=== PATIENT | female | born 1975 | race Caucasian/White ===

== ENCOUNTER 2017-03-14 22:12 | Inpatient (IN) | payer OTHER ==
[2017-03-14 23:10] VITALS: BMI 17.2
--- NOTE | 2017-03-14 23:16 | HP ---
COWS - Scale Resting Pulse: 1= [place] 81-100 Sweatin=Flushed/Facial Moisture Restless Observation: 3= Extraneous Movement Pupil Size: 1= Pupils >than Normal Bone or Joint Aches: 4=Acute Joint/Muscle Pain Runny Nose/ Eye Tearin= Nasal Congestion GI Upset > 30mins: 2= Nausea/Diarrhea Tremor Observation: 2= Slight Tremor Visible Yawning Observation: 0= None Anxiety or Irritability: 2=Irritable/Anxious Goose Flesh Skin: 0=Smooth Skin COWS Score: 18 CIWA Score - CIWA Score Nausea/Vomitin-Mild Nausea/No Vomiting Muscle Tremors: 3 Anxiety: 4-Mod. Anxious/Guarded Agitation: 4-Moderately Restless Paroxysmal Sweats: 3 Orientation: 0-Oriented Tacttile Disturbances: 2-Mild Itch/Numbness/Burn Auditory Disturbances: 0-None Visual Disturbances: 0-None Headache: 2-Mild CIWA-Ar Total Score: 19 Admission ROS S - HPI Chief Complaint: C/O WITHDRAWAL SX'S . SEEKING DETOX TXMENT Allergies/Adverse Reactions: Allergies Allergy/AdvReac Type Severity Reaction Status Date / Time Fish Containing Products Allergy Severe Hives Verified 03/15/17 00:08 venom-honey bee Allergy Severe Swelling Verified 03/15/17 00:08 [bee venom (honey bee)] No Known Drug Allergies Allergy Verified 03/15/17 00:08 History of Present Illness: 41 Y.O. FEMALE WITH HX/O OPIOID, XANAX, ALCOHOL DEPENDENCE HERE FOR DETOX TXMENT. CLIENT IS KNOWN TO THIS PROGRAM. LAST HERE 2 YEARS AGO. DENIES ANY DETOX SINCE THEN. DENIES LEGALS . REPORTS LONGEST CLEAN TIME 10 YEARS. Exam Limitations: No Limitations - Ebola screening Have you traveled outside of the country in the last 21 days: No Have you had contact with anyone from an Ebola affected area: No Have you been sick,other than usual withdrawal symptoms: No - Review of Systems Constitutional: Chills, Loss of Appetite, Malaise, Night Sweats, Changes in sleep EENT: reports: Throat Pain (SORE) Respiratory: reports: No Symptoms reported Cardiac: reports: No Symptoms Reported GI: reports: Nausea, Poor Appetite, Poor Fluid Intake : reports: No Symptoms Reported Musculoskeletal: reports: Joint Pain Integumentary: reports: No Symptoms Reported Neuro: reports: No Symptoms reported Endocrine: reports: No Symptoms Reported Hematology: reports: No Symptoms Reported Psychiatric: reports: Anxious, Depressed Other Systems: Reviewed and Negative Patient History - Patient Medical History Hx Anemia: No Hx Asthma: Yes (ALBUTEROL INH) Hx Chronic Obstructive Pulmonary Disease (COPD): No Hx Cancer: No Hx Cardiac Disorders: No Hx Congestive Heart Failure: No Hx Hypertension: No Hx Hypercholesterolemia: No Hx Pacemaker: No HX Cerebrovascular Accident: No Hx Seizures: No Hx Dementia: No Hx Diabetes: No Hx Gastrointestinal Disorders: No Hx Liver Disease: No Hx Genitourinary Disorders: No Hx Sexually Transmitted Disorders: No Hx Renal Disease (ESRD): No Hx Thyroid Disease: No Hx Human Immunodeficiency Virus (HIV): No Hx Hepatitis C: No Hx Depression: Yes Hx Suicide Attempt: No Hx Bipolar Disorder: Yes Hx Schizophrenia: No Other Medical History: ANXIETY - Patient Surgical History Past Surgical History: No - PPD History Previous Implant?: Yes Documented Results: Negative w/o proof Implanted On Prior [facility] Admission?: Yes Date: 11/20/14 PPD to be Administered?: Yes - Reproductive History Patient is a Female of Child Bearing Age (11 -55 yrs old): Yes Last Menstrual Period: 11/11/14 LMP comment: 03/02/2017 [place] : [place] [facility] [place] Smoking Cessation Smoking history: Current every day smoker Have you smoked in the past 12 months: Yes Aproximately how many cigarettes per day: 10 Hx Chewing Tobacco Use: No Initiated information on smoking cessation: Yes 'Breaking Loose' booklet given: 03/14/17 - Substance & Tx. History Hx Alcohol Use: Yes Hx Substance Use: Yes Substance Use Type: Alcohol, Heroin, Tranquilizers (XANAX) Hx Substance Use Treatment: Yes ([facility]) - Substances Abused HEROIN Route: Injection Frequency: Daily Amount used: 10 BAGS Age of first use: 15 Date of Last Use: 03/14/17 XANAX Route: Oral Frequency: Daily Amount used: 8MG Age of first use: 15 Date of Last Use: 03/13/17 BEER Route: Oral Frequency: Daily Amount used: 5 -12OZ CANS Age of first use: 15 Date of Last Use: 03/13/17 Family Disease History - Family Disease History Family History: Denies Admission Physical Exam BHS - Vital Signs Vital Signs: Vital Signs - 24 hr 03/14/17 23:08 Temperature 97.7 F Pulse Rate 90 Respiratory 18 Rate Blood Pressure 111/72 - Physical General Appearance: Yes: Disheveled, Moderate Distress, Thin (LAYERED CLOTHING, CACHETIC), Tremorous, Irritable, Other (UNKEPT) HEENTM: Yes: EOMI, Normocephalic, OMID, Pharynx Normal Respiratory: Yes: Chest Non-Tender, Lungs Clear, Normal Breath Sounds, No Respiratory Distress, No Accessory Muscle Use Neck: Yes: No masses,lesions,Nodules, Supple, Trachea in good position Breast: Yes: Breast Exam Deferred Cardiology: Yes: Regular Rhythm, Regular Rate, S1, S2 Abdominal: Yes: Normal Bowel Sounds, Non Tender, Flat, Soft Genitourinary: Yes: Within Normal Limits Back: Yes: Normal Inspection Musculoskeletal: Yes: full range of Motion, Gait Steady Extremities: Yes: Normal Capillary Refill, Normal Range of Motion, Non-Tender, Tremors 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 intact, Fully Oriented, Alert, Motor Strength 5/5 Integumentary: Yes: Dry, Warm, Track Tristan (NEEDLE TRISTAN NOTED TO BOTH ARMS) Lymphatic: Yes: Within Normal Limits - Diagnostic (1) Opioid dependence with withdrawal Current Visit: Yes Status: Chronic (2) Benzodiazepine withdrawal without complication Current Visit: Yes Status: Chronic (3) Alcohol dependence with uncomplicated withdrawal Current Visit: Yes Status: Chronic (4) Nicotine dependence Current Visit: No Status: Chronic Qualifiers: Nicotine product type: cigarettes Substance use status: uncomplicated Qualified Code(s): F17.210 - Nicotine dependence, cigarettes, uncomplicated Cleared for Admission [facility] - Detox or Rehab [facility] Level of Care: Medically Managed Detox Regimen/Protocol: Methadone/Valium [facility] Breath Alcohol Content Breath Alcohol Content: 0 Urine Pregancy Test - Result Urine Test Results: Negative- NO Line Present Urine Drug Screen - Results Drug Screen Negative: No Urine Drug Screen Results: OPI-Opiates, BZO-Benzodiazepines, OXY-Oxycodone
[2017-03-14] MEDS ORDERED: LOPERAMIDE HCL 2 MG CAPSULE PO PRN (23:22)
[2017-03-14] MEDS ORDERED: ACETAMINOPHEN 325 MG TABLET (FP) PO PRN (23:22)
[2017-03-14] MEDS ORDERED: MENTHOL/PHENOL 1 EACH UD MM PRN (23:22)
[2017-03-14] MEDS ORDERED: NICOTINE POLACRILEX 2 MG GUM BC PRN (23:22)
[2017-03-14] MEDS ORDERED: IBUPROFEN 400 MG TABLET (FP) PO PRN (23:22)
[2017-03-14] MEDS ORDERED: MAGNESIUM HYDROX 2400MG/30ML ORAL SUSPENSION 30 ML CUP PO PRN (23:22)
[2017-03-14] MEDS ORDERED: P-EPHED 60MG/TRIPROLIDI 2.5MG TABLET PO PRN (23:22)
[2017-03-14] MEDS ORDERED: MAGNESIUM CITRATE 300 ML BOTTLE PO PRN (23:22)
[2017-03-14] MEDS ORDERED: guaiFENesin/D-METHORPHAN HB 10 ML UNIT-DOSE CUPS PO PRN (23:22)
[2017-03-14] MEDS ORDERED: MAG HYDROX/AL HYDROX/SIMETH 30 ML UNIT-DOSE CUP PO PRN (23:22)
[2017-03-15] MEDS ORDERED: METHADONE HCL 10 MG TABLET (FOR DETOX USE ONLY) PO ONE ×4 (00:09→23:00)
[2017-03-15] MEDS ORDERED: diazePAM 5 MG TABLET PO ONE ×2 (00:09→02:15)
[2017-03-15] MEDS: diazePAM 5 MG TABLET PO SCH ×3 (05:10→22:14)
--- NOTE | 2017-03-15 07:37 | CONSULT ---
[facility] Psychiatric Consult - Data Date of interview: 03/15/17 Admission source: [facility] Identifying data: This is 41 years old female with no psychiatric hospitalization hyistory intoxicated with: Opioids, Xanax, Alcohol and Nicotine Substance Abuse History: Smoking history: Current every day smoker. Have you smoked in the past 12 months: Yes. Aproximately how many cigarettes per day: 10. Hx Chewing Tobacco Use: No. Initiated information on smoking cessation: Yes. 'Breaking Loose' booklet given: 03/14/17. - Substance & Tx. History. Hx Alcohol Use: Yes. Hx Substance Use: Yes. Substance Use Type: Alcohol, Heroin, Tranquilizers (XANAX). Hx Substance Use Treatment: Yes ([facility] - Substances Abused. HEROIN. Route: Injection. Frequency: Daily. Amount used: 10 BAGS. Age of first use: 15. Date of Last Use: 03/14/17. XANAX. Route: Oral. Frequency: Daily. Amount used: 8MG. Age of first use: 15. Date of Last Use: 03/13/17. BEER. Route: Oral. Frequency: Daily. Amount used: 5 - 12OZ CANS. Age of first use: 15. Date of Last Use: 03/13/17 Medical History: Denies any significant medical issues Psychiatric History: Patient reports history of depression and anxiety, reports takinf Seroquel 200mg po bid. As per chart patient has been on Buspar 10mg po bid as well, patient refusing to restart Buspar Physical/Sexual Abuse/Trauma History: Denies Additional Comment: Seroquel 200mg po bid. As per chart patient has been on Buspar 10mg po bid as well, patient refusing to restart Buspar Mental Status Exam - Mental Status Exam Alert and Oriented to: Person Cognitive Function: Fair Patient Appearance: Unkempt Mood: Apprehensive Affect: Mood Congruent Patient Behavior: Cooperative Speech Pattern: Appropriate Voice Loudness: Normal Thought Process: Goal Oriented Thought Disorder: Being Controlled Hallucinations: Denies Suicidal Ideation: Denies Homicidal Ideation: Denies Insight/Judgement: Fair Sleep: Difficulty falling asleep Appetite: Weight loss Muscle strength/Tone: Normal Gait/Station: Normal Additional Comments: Seroquel 200mg po bid. As per chart patient has been on Buspar 10mg po bid as well, patient refusing to restart Buspar Psychiatric Findings - Problem List (Mary D 1, 2,3) (1) Alcohol dependence with uncomplicated withdrawal Current Visit: Yes Status: Chronic (2) Benzodiazepine withdrawal without complication Current Visit: Yes Status: Chronic (3) Opioid dependence with withdrawal Current Visit: Yes Status: Chronic (4) Opioid dependence Current Visit: No Status: Acute (5) Anxiety Current Visit: No Status: Chronic (6) Asthma Current Visit: No Status: Chronic (7) Bipolar 1 disorder Current Visit: No Status: Suspected (8) Nicotine dependence Current Visit: No Status: Chronic Qualifiers: Nicotine product type: cigarettes Substance use status: uncomplicated Qualified Code(s): F17.210 - Nicotine dependence, cigarettes, uncomplicated (9) Schizoaffective disorder Current Visit: No Status: Suspected - Initial Treatment Plan Initial Treatment Plan: Seroquel 200mg po bid. As per chart patient has been on Buspar 10mg po bid as well, patient refusing to restart Buspar
[2017-03-15] MEDS ORDERED: ALBUTEROL SO4 18 GM HFA INHALER IH PRN (09:31)
--- NOTE | 2017-03-15 09:31 | PN ---
[facility] CIWA - CIWA Score Nausea/Vomitin Muscle Tremors: 3 Anxiety: 3 Agitation: 3 Paroxysmal Sweats: 3 Orientation: 0-Oriented Tacttile Disturbances: 0-None Auditory Disturbances: 0-None Visual Disturbances: 0-None Headache: 0-None Present CIWA-Ar Total Score: 15 BHS COWS - Scale Resting Pulse: 1= [place] 81-100 Sweatin= Chills/Flushing Restless Observation: 1= Difficult to Sit Still Pupil Size: 1= Pupils >than Normal Bone or Joint Aches: 2= Severe Diffuse Aches Runny Nose/ Eye Tearin= Nasal Congestion GI Upset > 30mins: 2= Nausea/Diarrhea Tremor Observation of Outstretched Hands: 2= Slight Tremor Visible Yawning Observation: 1= 1-2x During Session Anxiety or Irritability: 2=Irritable/Anxious Goose Flesh Skin: 3=Piloerection COWS Score: 17 S Progress Note (SOAP) Subjective: nausea, sweats, interrutped sleep, anxiety, tremors Objective: 03/15/17 09:30 Vital Signs - 24 hr 03/14/17 03/15/17 03/15/17 23:08 03:30 06:16 Temperature 97.7 F 96.3 F L Pulse Rate 90 93 H Respiratory 18 18 20 Rate Blood Pressure 111/72 101/77 03/15/17 09:19 Temperature 98.1 F Pulse Rate 93 H Respiratory 18 Rate Blood Pressure 134/83 labs still pending Assessment: 03/15/17 09:30 withdrwal sx, cont deto, symptomatic relief ordered, fludis, exercise encouraged
[2017-03-15 09:58] LABS: MCH 28.6 pg (25.7-33.7); MCHC 33.5 g/dl (32.0-36.0); MEAN CELL VOLUME 85.4 fl (80-96); PLATELET COUNT 326 K/MM3 (134-434); RDW 14.6 % (11.6-15.6); WHITE BLOOD COUNT 5.4 K/mm3 (4.0-10.0)
[2017-03-15] MEDS: QUEtiapine FUMARATE 200 MG TABLET PO SCH ×2 (10:08→22:13)
[2017-03-15] MEDS: diazePAM 5 MG TABLET PO PRN (10:08)
[2017-03-15] MEDS: cloNIDine HCL 0.1 MG TABLET PO SCH ×2 (10:10→22:14)
[2017-03-15] MEDS: PANTOPRAZOLE 40 MG TABLET (FP) PO SCH (10:10)
[2017-03-15] MEDS: hydrOXYzine PAMOATE 50 MG CAPSULE (FP) PO PRN (10:10)
[2017-03-15] MEDS: NAPROXEN 500 MG TABLET (FP) PO SCH ×2 (10:10→22:14)
[2017-03-15] MEDS: PRENATAL VITAMINS W/ FOLIC ACID TABLET (FP) PO SCH (10:14)
[2017-03-15 10:21] LABS: ALBUMIN 2.9 g/dl (3.4-5.0); ALK PHOS 93 U/L (45-117); ANION GAP 7 (8-16); BILIRUBIN,TOTAL 0.3 mg/dL (0.2-1.0); CALCIUM 8.2 mg/dL (8.5-10.1); CO2 27 mmol/L (21-32); CREATININE 0.6 mg/dL (0.55-1.02); GLUCOSE,RANDOM 89 mg/dL (74-106); SGOT/AST 50 U/L (15-37); SGPT/ALT 42 U/L (12-78); TOT PROT 5.9 g/dl (6.4-8.2)
[2017-03-15] MEDS: CYCLOBENZAPRINE HCL 5 MG TABLET PO SCH ×2 (14:42→22:14)
[2017-03-15] MEDS: NICOTINE 14 MG/24 HOURS TOPICAL PATCH TD SCH (14:43)
--- NOTE | 2017-03-15 16:34 | EKG ---
Test Reason : Blood Pressure : / mmHG Vent. Rate : 068 BPM Atrial Rate : 068 BPM P-R Int : 136 ms QRS Dur : 082 ms QT Int : 388 ms P-R-T Axes : 039 081 048 degrees QTc Int : 412 ms NORMAL SINUS RHYTHM NORMAL ECG NO PREVIOUS ECGS AVAILABLE Confirmed by EL TOMPKINS MD ([id number]) on 03/15/2017 4:34:36 PM Referred By: Confirmed By:EL TOMPKINS MD
[2017-03-15 21:47] LABS: URINE APPEARANCE CLOUDY; URINE BILIRUBIN NEGATIVE (NEGATIVE); URINE BLOOD NEGATIVE (NEGATIVE); URINE COLOR YELLOW; URINE GLUCOSE (UA) NEGATIVE (NEGATIVE); URINE KETONE NEGATIVE (NEGATIVE); URINE LEUK ESTERASE NEGATIVE (NEGATIVE); URINE NITRITE NEGATIVE (NEGATIVE); URINE PROTEIN NEGATIVE (NEGATIVE); URINE UROBILINOGEN NEGATIVE mg/dL (0.2-1.0)
[2017-03-15] MEDS: THIAMINE HCL 100 MG TABLET (FP) PO SCH (22:13)
[2017-03-15 23:26] LABS: URINE LEUK ESTERASE Negative (NEGATIVE)
[2017-03-16] MEDS: CYCLOBENZAPRINE HCL 5 MG TABLET PO SCH ×3 (05:03→22:04)
[2017-03-16] MEDS: diazePAM 5 MG TABLET PO SCH ×3 (05:03→22:05)
[2017-03-16] MEDS ORDERED: METHADONE HCL 10 MG TABLET (FOR DETOX USE ONLY) PO SCH (10:00)
[2017-03-16] MEDS: NAPROXEN 500 MG TABLET (FP) PO SCH ×2 (10:05→22:04)
[2017-03-16] MEDS: PRENATAL VITAMINS W/ FOLIC ACID TABLET (FP) PO SCH (10:05)
[2017-03-16] MEDS: PANTOPRAZOLE 40 MG TABLET (FP) PO SCH (10:06)
[2017-03-16] MEDS: cloNIDine HCL 0.1 MG TABLET PO SCH ×2 (10:06→22:04)
[2017-03-16] MEDS: NICOTINE 14 MG/24 HOURS TOPICAL PATCH TD SCH (10:06)
[2017-03-16] MEDS: QUEtiapine FUMARATE 200 MG TABLET PO SCH ×2 (10:06→22:04)
--- NOTE | 2017-03-16 10:21 | PN ---
[facility] CIWA - CIWA Score Nausea/Vomitin-No Nausea/No Vomiting Muscle Tremors: 4-Moderate,w/Arms Extend Anxiety: 3 Agitation: 4-Moderately Restless Paroxysmal Sweats: 3 Orientation: 0-Oriented Tacttile Disturbances: 0-None Auditory Disturbances: 0-None Visual Disturbances: 0-None Headache: 1-Very Mild CIWA-Ar Total Score: 15 B[facility] COWS - Scale Resting Pulse: 1= [place] 81-100 Sweatin=Flushed/Facial Moisture Restless Observation: 1= Difficult to Sit Still Pupil Size: 0= Normal to Room Light Bone or Joint Aches: 2= Severe Diffuse Aches Runny Nose/ Eye Tearin= Runny Nose/Eyes GI Upset > 30mins: 1= Stomach Cramp Tremor Observation of Outstretched Hands: 2= Slight Tremor Visible Yawning Observation: 2= >3x During Session Anxiety or Irritability: 2=Irritable/Anxious Goose Flesh Skin: 0=Smooth Skin COWS Score: 15 [facility] Progress Note (SOAP) Subjective: shakes sweats interrupted sleep agitation body aches irritable nausea Objective: 03/16/17 10:20 Vital Signs Temperature 98.1 F 03/16/17 09:56 Pulse Rate 85 03/16/17 09:56 Respiratory Rate 18 03/16/17 09:56 Blood Pressure 108/62 03/16/17 09:56 O2 Sat by Pulse Oximetry (%) Laboratory Tests 03/14/17 03/15/17 03/15/17 07:00 07:00 07:00 WBC 5.4 RBC 4.03 Hgb 11.5 Hct 34.4 MCV 85.4 MCH 28.6 MCHC 33.5 RDW 14.6 Plt Count 326 MPV 7.0 L D Sodium 143 Potassium 4.0 Chloride 109 H Carbon Dioxide 27 Anion Gap 7 L BUN 11 Creatinine 0.6 Creat Clearance w eGFR > 60 Random Glucose 89 D Calcium 8.2 L Total Bilirubin 0.3 D AST 50 H D ALT 42 D Alkaline Phosphatase 93 Total Protein 5.9 L D Albumin 2.9 L D Urine Color Urine Appearance Urine pH Ur Specific [place] Urine Protein Urine Glucose (UA) Urine Ketones Urine Blood Urine Nitrite Urine Bilirubin Urine Urobilinogen Ur Leukocyte Esterase RPR Titer Hepatitis C Antibody 0.1 03/15/17 03/15/17 07:00 17:07 WBC RBC Hgb Hct MCV MCH MCHC RDW Plt Count MPV Sodium Potassium Chloride Carbon Dioxide Anion Gap BUN Creatinine Creat Clearance w eGFR Random Glucose Calcium Total Bilirubin AST ALT Alkaline Phosphatase Total Protein Albumin Urine Color Yellow Urine Appearance Cloudy Urine pH 8.0 D Ur Specific [place] 1.014 Urine Protein Negative Urine Glucose (UA) Negative Urine Ketones Negative Urine Blood Negative Urine Nitrite Negative Urine Bilirubin Negative Urine Urobilinogen Negative Ur Leukocyte Esterase Negative RPR Titer Nonreactive Hepatitis C Antibody aaox3 ambulating no acute distress Assessment: 03/16/17 10:20 withdrawal sx Plan: continue detox increase fluids zofran prn
[2017-03-16] MEDS ORDERED: ONDANSETRON *ODT* 4 MG TABLET SL PRN (10:22)
[2017-03-16] MEDS: diazePAM 5 MG TABLET PO PRN (17:05)
[2017-03-16] MEDS: THIAMINE HCL 100 MG TABLET (FP) PO SCH (22:05)
[2017-03-17] MEDS: CYCLOBENZAPRINE HCL 5 MG TABLET PO SCH ×3 (06:19→22:03)
[2017-03-17] MEDS: diazePAM 5 MG TABLET PO PRN ×3 (06:21→18:48)
[2017-03-17] MEDS ORDERED: METHADONE HCL 5 MG TABLET (FOR DETOX USE ONLY) PO SCH (10:00)
[2017-03-17] MEDS: NAPROXEN 500 MG TABLET (FP) PO SCH ×2 (10:04→22:02)
[2017-03-17] MEDS: cloNIDine HCL 0.1 MG TABLET PO SCH ×2 (10:04→22:04)
[2017-03-17] MEDS: PANTOPRAZOLE 40 MG TABLET (FP) PO SCH (10:04)
[2017-03-17] MEDS: QUEtiapine FUMARATE 200 MG TABLET PO SCH ×2 (10:04→22:02)
[2017-03-17] MEDS: PRENATAL VITAMINS W/ FOLIC ACID TABLET (FP) PO SCH (10:04)
[2017-03-17] MEDS: hydrOXYzine PAMOATE 50 MG CAPSULE (FP) PO PRN ×3 (10:04→18:47)
[2017-03-17] MEDS: diazePAM 5 MG TABLET PO SCH ×2 (10:04→22:02)
[2017-03-17] MEDS: NICOTINE 14 MG/24 HOURS TOPICAL PATCH TD SCH (10:05)
--- NOTE | 2017-03-17 16:25 | PN ---
[facility] Progress Note (SOAP) Subjective: Sweating,interrupted sleep,restless Objective: 03/17/17 16:24 Vital Signs - 8 hr 03/17/17 03/17/17 10:00 15:23 Temperature 98.2 F 97.5 F L Pulse Rate 87 93 H Respiratory 18 18 Rate Blood Pressure 125/80 107/66 Laboratory Tests 03/14/17 03/15/17 03/15/17 07:00 07:00 07:00 WBC 5.4 RBC 4.03 Hgb 11.5 Hct 34.4 MCV 85.4 MCH 28.6 MCHC 33.5 RDW 14.6 Plt Count 326 MPV 7.0 L D Sodium 143 Potassium 4.0 Chloride 109 H Carbon Dioxide 27 Anion Gap 7 L BUN 11 Creatinine 0.6 Creat Clearance w eGFR > 60 Random Glucose 89 D Calcium 8.2 L Total Bilirubin 0.3 D AST 50 H D ALT 42 D Alkaline Phosphatase 93 Total Protein 5.9 L D Albumin 2.9 L D Urine Color Urine Appearance Urine pH Ur Specific [place] Urine Protein Urine Glucose (UA) Urine Ketones Urine Blood Urine Nitrite Urine Bilirubin Urine Urobilinogen Ur Leukocyte Esterase RPR Titer Hepatitis C Antibody 0.1 03/15/17 03/15/17 07:00 17:07 WBC RBC Hgb Hct MCV MCH MCHC RDW Plt Count MPV Sodium Potassium Chloride Carbon Dioxide Anion Gap BUN Creatinine Creat Clearance w eGFR Random Glucose Calcium Total Bilirubin AST ALT Alkaline Phosphatase Total Protein Albumin Urine Color Yellow Urine Appearance Cloudy Urine pH 8.0 D Ur Specific [place] 1.014 Urine Protein Negative Urine Glucose (UA) Negative Urine Ketones Negative Urine Blood Negative Urine Nitrite Negative Urine Bilirubin Negative Urine Urobilinogen Negative Ur Leukocyte Esterase Negative RPR Titer Nonreactive Hepatitis C Antibody labs noted Assessment: 03/17/17 16:24 Withdrawal sx. Plan: Continue detox
[2017-03-17] MEDS: THIAMINE HCL 100 MG TABLET (FP) PO SCH (22:04)
[2017-03-18] MEDS: hydrOXYzine PAMOATE 50 MG CAPSULE (FP) PO PRN ×2 (05:58→10:20)
[2017-03-18] MEDS: CYCLOBENZAPRINE HCL 5 MG TABLET PO SCH (05:58)
[2017-03-18 06:47] VITALS: TEMP 98
--- NOTE | 2017-03-18 09:58 | PN ---
[facility] Progress Note (SOAP) Subjective: Sweating,interrupted sleep,restless Objective: 03/18/17 09:58 Vital Signs - 8 hr 03/18/17 03/18/17 03:30 06:45 Temperature 98 F Pulse Rate 64 Respiratory 18 16 Rate Blood Pressure 106/72 Laboratory Tests 03/14/17 03/15/17 03/15/17 07:00 07:00 07:00 WBC 5.4 RBC 4.03 Hgb 11.5 Hct 34.4 MCV 85.4 MCH 28.6 MCHC 33.5 RDW 14.6 Plt Count 326 MPV 7.0 L D Sodium 143 Potassium 4.0 Chloride 109 H Carbon Dioxide 27 Anion Gap 7 L BUN 11 Creatinine 0.6 Creat Clearance w eGFR > 60 Random Glucose 89 D Calcium 8.2 L Total Bilirubin 0.3 D AST 50 H D ALT 42 D Alkaline Phosphatase 93 Total Protein 5.9 L D Albumin 2.9 L D Urine Color Urine Appearance Urine pH Ur Specific [place] Urine Protein Urine Glucose (UA) Urine Ketones Urine Blood Urine Nitrite Urine Bilirubin Urine Urobilinogen Ur Leukocyte Esterase RPR Titer Hepatitis C Antibody 0.1 03/15/17 03/15/17 07:00 17:07 WBC RBC Hgb Hct MCV MCH MCHC RDW Plt Count MPV Sodium Potassium Chloride Carbon Dioxide Anion Gap BUN Creatinine Creat Clearance w eGFR Random Glucose Calcium Total Bilirubin AST ALT Alkaline Phosphatase Total Protein Albumin Urine Color Yellow Urine Appearance Cloudy Urine pH 8.0 D Ur Specific [place] 1.014 Urine Protein Negative Urine Glucose (UA) Negative Urine Ketones Negative Urine Blood Negative Urine Nitrite Negative Urine Bilirubin Negative Urine Urobilinogen Negative Ur Leukocyte Esterase Negative RPR Titer Nonreactive Hepatitis C Antibody labs wnl Assessment: 03/18/17 09:58 Withdrawal sx. Plan: Continue detox
[2017-03-18] MEDS: NAPROXEN 500 MG TABLET (FP) PO SCH (10:20)
[2017-03-18] MEDS: cloNIDine HCL 0.1 MG TABLET PO SCH (10:20)
[2017-03-18] MEDS: NICOTINE 14 MG/24 HOURS TOPICAL PATCH TD SCH (10:20)
[2017-03-18] MEDS: diazePAM 5 MG TABLET PO SCH (10:20)
[2017-03-18] MEDS: QUEtiapine FUMARATE 200 MG TABLET PO SCH (10:20)
[2017-03-18] MEDS: PANTOPRAZOLE 40 MG TABLET (FP) PO SCH (10:20)
[2017-03-18] MEDS: PRENATAL VITAMINS W/ FOLIC ACID TABLET (FP) PO SCH (10:20)
[2017-03-18 11:36] VITALS: BP 122/67; PULSE 100
[2017-03-18] MEDS ORDERED: METHADONE HCL 10 MG TABLET (FOR DETOX USE ONLY) PO SCH ×2 (12:00→18:00)
--- NOTE | 2017-03-18 12:40 | DS ---
[facility] Detox Discharge Summary Admission Date: 03/14/17 Discharge Date: 03/18/17 - History Present History: Alcohol Dependence, Sedative Dependence Pertinent Past History: Asthma - Physical Exam Results Vital Signs: Vital Signs Temperature 98 F 03/18/17 11:35 Pulse Rate 100 H 03/18/17 11:35 Respiratory Rate 16 03/18/17 11:35 Blood Pressure 122/67 03/18/17 11:35 O2 Sat by Pulse Oximetry (%) Pertinent Admission Physical Exam Findings: Withdrawal sx. Laboratory Last Values WBC 5.4 K/mm3 (4.0-10.0) 03/15/17 07:00 RBC 4.03 M/mm3 (3.60-5.2) 03/15/17 07:00 Hgb 11.5 GM/dL (10.7-15.3) 03/15/17 07:00 Hct 34.4 % (32.4-45.2) 03/15/17 07:00 MCV 85.4 fl (80-96) 03/15/17 07:00 MCH 28.6 pg (25.7-33.7) 03/15/17 07:00 MCHC 33.5 g/dl (32.0-36.0) 03/15/17 07:00 RDW 14.6 % (11.6-15.6) 03/15/17 07:00 Plt Count 326 K/MM3 (134-434) 03/15/17 07:00 MPV 7.0 fl (7.5-11.1) L D 03/15/17 07:00 Sodium 143 mmol/L (136-145) 03/15/17 07:00 Potassium 4.0 mmol/L (3.5-5.1) 03/15/17 07:00 Chloride 109 mmol/L (98-107) H 03/15/17 07:00 Carbon Dioxide 27 mmol/L (21-32) 03/15/17 07:00 Anion Gap 7 (8-16) L 03/15/17 07:00 BUN 11 mg/dL (7-18) 03/15/17 07:00 Creatinine 0.6 mg/dL (0.55-1.02) 03/15/17 07:00 Creat Clearance w eGFR > 60 (>60) 03/15/17 07:00 Random Glucose 89 mg/dL (74-106) D 03/15/17 07:00 Calcium 8.2 mg/dL (8.5-10.1) L 03/15/17 07:00 Total Bilirubin 0.3 mg/dL (0.2-1.0) D 03/15/17 07:00 AST 50 U/L (15-37) H D 03/15/17 07:00 ALT 42 U/L (12-78) D 03/15/17 07:00 Alkaline Phosphatase 93 U/L (45-117) 03/15/17 07:00 Total Protein 5.9 g/dl (6.4-8.2) L D 03/15/17 07:00 Albumin 2.9 g/dl (3.4-5.0) L D 03/15/17 07:00 Urine Color Yellow 03/15/17 17:07 Urine Appearance Cloudy 03/15/17 17:07 Urine pH 8.0 (5.0-8.0) D 03/15/17 17:07 Ur Specific [place] 1.014 (1.001-1.035) 03/15/17 17:07 Urine Protein Negative (NEGATIVE) 03/15/17 17:07 Urine Glucose (UA) Negative (NEGATIVE) 03/15/17 17:07 Urine Ketones Negative (NEGATIVE) 03/15/17 17:07 Urine Blood Negative (NEGATIVE) 03/15/17 17:07 Urine Nitrite Negative (NEGATIVE) 03/15/17 17:07 Urine Bilirubin Negative (NEGATIVE) 03/15/17 17:07 Urine Urobilinogen Negative mg/dL (0.2-1.0) 03/15/17 17:07 Ur Leukocyte Esterase Negative (NEGATIVE) 03/15/17 17:07 RPR Titer Nonreactive (NONREACTIVE) 03/15/17 07:00 Hepatitis C Antibody 0.1 s/co ratio (0.0-0.9) 03/14/17 07:00 labs noted - Treatment Patient has Accepted a Rehab Referral to: [facility] rehab - Medication Discharge Medications: Ambulatory Orders Buspirone HCl [Buspar -] 10 mg PO BID #1 tablet 11/19/14 Albuterol Sulfate Inhaler - [Ventolin HFA Inhaler -] 0 puff IH Q4H PRN #0 inhaler 11/20/14 Quetiapine Fumarate [Seroquel -] 200 mg PO BID #60 tablet 03/15/17 - Diagnosis (1) Alcohol dependence with uncomplicated withdrawal Current Visit: Yes Status: Chronic (2) Opioid dependence with withdrawal Current Visit: Yes Status: Chronic (3) Asthma Current Visit: No Status: Chronic Qualifiers: Asthma severity: mild Asthma complication type: unspecified (4) Bipolar 1 disorder Current Visit: No Status: Suspected (5) Schizoaffective disorder Current Visit: No Status: Suspected - AMA Did Patient Leave Against Medical Advice: Yes (Pt. walked off unit, did not received her methadone dose of 10mg)
[2017-03-19] MEDS ORDERED: METHADONE HCL 5 MG TABLET (FOR DETOX USE ONLY) PO SCH (06:00)
[2017-03-19] MEDS ORDERED: METHADONE HCL 10 MG TABLET (FOR DETOX USE ONLY) PO SCH (10:00)
[2017-03-19] MEDS ORDERED: diazePAM 5 MG TABLET PO SCH (10:00)
[2017-03-20] MEDS ORDERED: METHADONE HCL 5 MG TABLET (FOR DETOX USE ONLY) PO SCH (06:00)
== END 2017-03-18 11:55 | disposition left against medical advice (07) | DRG 770 ==
LOC: YASAS 22:12 → Y6N 23:16
PROVIDERS: ADMIT Internal Medicine; ATTEND Internal Medicine
PROC: HZ2ZZZZ Detoxification Services for Substance Abuse Treatment (ICD-10-PCS; principal; 2017-03-14)
DX: F11.23 Opioid dependence with withdrawal (principal); F10.230 Alcohol dependence with withdrawal, uncomplicated; F13.230 Sedative, hypnotic or anxiolytic dependence with withdrawal, uncomplicated; F17.210 Nicotine dependence, cigarettes, uncomplicated; F25.9 Schizoaffective disorder, unspecified; F31.89 Other bipolar disorder; F41.9 Anxiety disorder, unspecified; J45.30 Mild persistent asthma, uncomplicated; Z91.013 Allergy to seafood; Z91.038 Other insect allergy status
CPT/HCPCS: 36415; 80053; 81003; 85027; 86593; 86803; 93005; 93010

== ENCOUNTER 2017-06-19 10:20 | Inpatient (IN) | payer OTHER ==
[2017-06-19 10:39] VITALS: BMI 19.7
--- NOTE | 2017-06-19 12:07 | HP ---
COWS - Scale Resting Pulse: 2= [place] 101-120 Sweatin=Flushed/Facial Moisture Restless Observation: 3= Extraneous Movement Pupil Size: 2= Moderately Dilated Bone or Joint Aches: 2= Severe Diffuse Aches Runny Nose/ Eye Tearin= Runny Nose/Eyes GI Upset > 30mins: 3= Vomiting/Diarrhea Tremor Observation: 2= Slight Tremor Visible Yawning Observation: 2= >3x During Session Anxiety or Irritability: 2=Irritable/Anxious Goose Flesh Skin: 0=Smooth Skin COWS Score: 22 CIWA Score - CIWA Score Nausea/Vomitin Muscle Tremors: 3 Anxiety: 3 Agitation: 3 Paroxysmal Sweats: 2 Orientation: 0-Oriented Tacttile Disturbances: 2-Mild Itch/Numbness/Burn Auditory Disturbances: 2-Mild Harshness/Frighten Visual Disturbances: 2-Mild Sensitivity Headache: 2-Mild CIWA-Ar Total Score: 22 Admission ROS S - HPI Chief Complaint: i need help to stop using heroin,alcohol,cocaine Allergies/Adverse Reactions: Allergies Allergy/AdvReac Type Severity Reaction Status Date / Time Fish Containing Products Allergy Severe Hives Verified 06/19/17 11:55 venom-honey bee Allergy Severe Swelling Verified 06/19/17 11:55 [bee venom (honey bee)] No Known Drug Allergies Allergy Verified 03/15/17 00:08 History of Present Illness: this 41years old female with heroin alcohol,cocaine dependence,seeking detox, withdrawal symptom,last detox [facility] 03/14/17 to 03/18/17 [facility] 2017 anxiety,depression,insomnia nicotine dependence longest period of sobriety 10 years - Ebola screening Have you traveled outside of the country in the last 21 days: No Have you had contact with anyone from an Ebola affected area: No Have you been sick,other than usual withdrawal symptoms: No Do you have a fever: No - Review of Systems Constitutional: Chills, Loss of Appetite, Malaise, Night Sweats, Changes in sleep, Weakness, Unexplained wgt Loss EENT: reports: Tearing, Nose Congestion Respiratory: reports: No Symptoms reported (asthma), Other Cardiac: reports: Palpitations GI: reports: Diarrhea, Nausea, Vomiting, Abdominal cramping : reports: No Symptoms Reported Musculoskeletal: reports: Back Pain, Joint Pain, Muscle Pain, Joint Stiffness Integumentary: reports: Dryness Neuro: reports: Headache, Tremors Endocrine: reports: No Symptoms Reported Hematology: reports: No Symptoms Reported Psychiatric: reports: No Sypmtoms Reported, Judgement Intact, Mood/Affect Appropiate, Orientated x3, Anxious, Depressed Patient History - Patient Medical History Hx Anemia: No Hx Asthma: Yes (ALBUTEROL INH) Hx Chronic Obstructive Pulmonary Disease (COPD): No Hx Cancer: No Hx Cardiac Disorders: No Hx Congestive Heart Failure: No Hx Hypertension: No Hx Hypercholesterolemia: No Hx Pacemaker: No HX Cerebrovascular Accident: No Hx Seizures: No Hx Dementia: No Hx Diabetes: No Hx Gastrointestinal Disorders: No Hx Liver Disease: No Hx Genitourinary Disorders: No Hx Sexually Transmitted Disorders: No Hx Renal Disease (ESRD): No Hx Thyroid Disease: No Hx Human Immunodeficiency Virus (HIV): No (last 2016 negative) Hx Hepatitis C: No Hx Depression: Yes (anxiety) Hx Suicide Attempt: No Hx Bipolar Disorder: Yes Hx Schizophrenia: No Other Medical History: no suicidal,no homicidal - Patient Surgical History Past Surgical History: No - PPD History Previous Implant?: Yes Implanted On Prior [facility] Admission?: Yes Date: 11/20/14 PPD to be Administered?: Yes - Reproductive History Patient is a Female of Child Bearing Age (11 -55 yrs old): Yes Last Menstrual Period: 05/10/17 Patient : No - Smoking Cessation Smoking history: Current every day smoker Have you smoked in the past 12 months: Yes Aproximately how many cigarettes per day: 20 Cigars Per Day: 0 Hx Chewing Tobacco Use: No Initiated information on smoking cessation: Yes 'Breaking Loose' booklet given: 06/19/17 - Substance & Tx. History Hx Alcohol Use: Yes Hx Substance Use: Yes Substance Use Type: Alcohol, Cocaine, Heroin Hx Substance Use Treatment: Yes ([facility] 03/14/17 to 03/18/17) - Substances Abused Heroin Route: Injection Frequency: Daily Amount used: 7 BAGS Age of first use: 16 Date of Last Use: 06/19/17 Alcohol Route: Oral Frequency: Daily Amount used: 1 PINT VODKA Age of first use: 16 Date of Last Use: 06/18/17 Crack Route: Smoking Frequency: 1-2 times per week Amount used: 2 BAGS Age of first use: 16 Date of Last Use: 06/18/17 Family Disease History - Family Disease History Family History: Denies Admission Physical Exam [facility] - Vital Signs Vital Signs: Vital Signs - 24 hr 06/19/17 10:36 Temperature 96.3 F L Pulse Rate 103 H Respiratory 18 Rate Blood Pressure 133/86 - Physical General Appearance: Yes: Moderate Distress, Tremorous, Irritable, Sweating, Anxious HEENTM: Yes: Normal ENT Inspection, OMID, Pharynx Normal Respiratory: Yes: Lungs Clear, Normal Breath Sounds, No Respiratory Distress Neck: Yes: Within Normal Limits, Supple, Trachea in good position Breast: Yes: Breast Exam Deferred Cardiology: Yes: Tachycardia Abdominal: Yes: Within Normal Limits, Normal Bowel Sounds, Non Tender, Flat, Soft Genitourinary: Yes: Within Normal Limits Musculoskeletal: Yes: full range of Motion, Back pain, Muscle Pain Extremities: Yes: Normal Inspection, Normal Range of Motion, Tremors Neurological: Yes: book publisher II-XII NML intact, Alert, Motor Strength 5/5, Normal Mood /Affect Integumentary: Yes: Dry Lymphatic: Yes: Within Normal Limits - Diagnostic (1) Opioid dependence with withdrawal Current Visit: Yes Status: Chronic (2) Alcohol dependence with uncomplicated withdrawal Current Visit: Yes Status: Acute (3) Asthma Current Visit: No Status: Chronic Qualifiers: Asthma severity: mild Asthma complication type: unspecified (4) Bipolar 1 disorder Current Visit: No Status: Suspected (5) Weight loss Current Visit: Yes Status: Deleted (6) IV drug user Current Visit: Yes Status: Acute (7) Nicotine dependence Current Visit: Yes Status: Acute Cleared for Admission [facility] - Detox or Rehab [facility] Level of Care: Medically Managed Detox Regimen/Protocol: Methadone/Valium [facility] Breath Alcohol Content Breath Alcohol Content: 0 Urine Pregancy Test - Result Urine Test Results: Negative- NO Line Present Urine Drug Screen - Results Drug Screen Negative: No Urine Drug Screen Results: FLAKITO-Cocaine, OPI-Opiates, BZO-Benzodiazepines
[2017-06-19] MEDS ORDERED: guaiFENesin/D-METHORPHAN HB 10 ML UNIT-DOSE CUPS PO PRN (12:22)
[2017-06-19] MEDS ORDERED: MENTHOL/PHENOL 1 EACH UD MM PRN (12:22)
[2017-06-19] MEDS ORDERED: MAGNESIUM CITRATE 300 ML BOTTLE PO PRN (12:22)
[2017-06-19] MEDS ORDERED: MAGNESIUM HYDROX 2400MG/30ML ORAL SUSPENSION 30 ML CUP PO PRN (12:22)
[2017-06-19] MEDS ORDERED: IBUPROFEN 400 MG TABLET (FP) PO PRN (12:22)
[2017-06-19] MEDS ORDERED: MAG HYDROX/AL HYDROX/SIMETH 30 ML UNIT-DOSE CUP PO PRN (12:22)
[2017-06-19] MEDS ORDERED: P-EPHED 60MG/TRIPROLIDI 2.5MG TABLET PO PRN (12:22)
[2017-06-19] MEDS ORDERED: LOPERAMIDE HCL 2 MG CAPSULE PO PRN (12:22)
[2017-06-19] MEDS ORDERED: ACETAMINOPHEN 325 MG TABLET (FP) PO PRN (12:22)
[2017-06-19] MEDS ORDERED: NICOTINE POLACRILEX 2 MG GUM BUC PRN (12:22)
[2017-06-19] MEDS ORDERED: chlordiazePOXIDE HCL 25 MG CAPSULE PO PRN (12:22)
[2017-06-19] MEDS ORDERED: ALBUTEROL SO4 18 GM HFA INHALER IH PRN (12:26)
[2017-06-19] MEDS ORDERED: chlordiazePOXIDE HCL 25 MG CAPSULE PO ONE (12:30)
[2017-06-19] MEDS ORDERED: METHADONE HCL 10 MG TABLET (FOR DETOX USE ONLY) PO ONE ×2 (12:35→23:00)
[2017-06-19] MEDS: NICOTINE 21 MG/24 HOURS TOPICAL PATCH TD SCH (12:54)
--- NOTE | 2017-06-19 15:05 | CONSULT ---
[facility] Psychiatric Consult - Data Date of interview: 06/19/17 Admission source: [facility] Identifying data: Pt. is 41 year old single, female, without kids, unemployed, and homeless. This is one of multiple admissions for patient. Pt. admitted to for alcohol, crack, and opiate dependence. Substance Abuse History: Following information confirmed with Ms. Ashford: Smoking Cessation. Smoking history: Current every day smoker. Have you smoked in the past 12 months: Yes. Aproximately how many cigarettes per day: 20. Cigars Per Day: 0. Hx Chewing Tobacco Use: No. Initiated information on smoking cessation: Yes. 'Breaking Loose' booklet given: 06/19/17. - Substance & Tx. History. Hx Alcohol Use: Yes. Hx Substance Use: Yes. Substance Use Type : Alcohol, Cocaine, Heroin. Hx Substance Use Treatment: Yes ([facility] 03/14/17 to 03/18/17). - Substances Abused. Heroin. Route: Injection. Frequency: Daily. Amount used: 7 BAGS. Age of first use: 16. Date of Last Use: . Alcohol. Route: Oral. Frequency: Daily. Amount used: 1 PINT VODKA. Age of first use: 16. Date of Last Use: 06/18/17. Crack. Route: Smoking. Frequency: 1-2 times per week. Amount used: 2 BAGS. Age of first use: 16. Date of Last Use: 06/18/17 Medical History: Asthma Psychiatric History: Patient's first encounter with a psychiatrist was at 18-20 years of age which resulted in a diagnosis of schizoaffective. Pt. reports multiple psychiatric hospitalizations most recently five years ago although is unable to recall the name of the hospital. Pt. is nonadherent to medications and outpatient care. As per Dr. Stroud entry on 03/15/17 patient was prescribed seroquel 200mg BID. Pt. denies h/o suicide attempt. Pt. currently denies suicidal and homicidal ideation. Throughout current interview patient was exhibiting inappropriate behavior by laughing inappropriately when questions were asked. Patient's behavior presents as odd and bizzare but is in control. Pt. reports auditory hallucinations. Pt. is internally preoccupied. Physical/Sexual Abuse/Trauma History: Denies. Mental Status Exam - Mental Status Exam Alert and Oriented to: Time, Place, Person Cognitive Function: Fair Patient Appearance: Unkempt Mood: Suspicious Affect: Inappropriate Patient Behavior: Inappropriate Speech Pattern: Delayed Voice Loudness: Normal Thought Process: Thought Blocking Thought Disorder: Paranoid Ideation Hallucinations: Auditory Suicidal Ideation: Denies Homicidal Ideation: Denies Insight/Judgement: Poor Sleep: Poorly Muscle strength/Tone: Normal Gait/Station: Normal Psychiatric Findings - Problem List ([place] 1, 2,3) (1) Drug-induced mood disorder Current Visit: Yes Status: Acute (2) Nicotine dependence Current Visit: Yes Status: Acute (3) Opioid dependence Current Visit: Yes Status: Acute (4) Alcohol dependence with uncomplicated withdrawal Current Visit: Yes Status: Acute (5) Opioid dependence with withdrawal Current Visit: Yes Status: Chronic (6) Schizoaffective disorder Current Visit: Yes Status: Chronic Comment: Pt. self reports. Pt is nonadherent to outpatient treatment and medications. - Initial Treatment Plan Initial Treatment Plan: Psychoeducation provided. Detoxification provided. Seroquel 50mg BID ordered for treatment auditory hallucinations. Benefits and side effects discussed. Verbal consent given. Will continue to monitor.
--- NOTE | 2017-06-19 16:43 | EKG ---
Test Reason : Blood Pressure : / mmHG Vent. Rate : 090 BPM Atrial Rate : 090 BPM P-R Int : 160 ms QRS Dur : 078 ms QT Int : 338 ms P-R-T Axes : 070 077 055 degrees QTc Int : 413 ms NORMAL SINUS RHYTHM WHEN COMPARED WITH ECG OF 15-MAR-2017 02:01, NO SIGNIFICANT CHANGE WAS FOUND Confirmed by MD Camargo Edward ([id number]) on 06/19/2017 4:43:02 PM Referred By: Confirmed By:Damian Camargo MD
[2017-06-19] MEDS: chlordiazePOXIDE HCL 25 MG CAPSULE PO SCH ×2 (16:44→22:21)
[2017-06-19 19:13] LABS: URINE APPEARANCE TURBID; URINE BILIRUBIN NEGATIVE (<2.0 mg/dL); URINE BLOOD NEGATIVE (NEGATIVE); URINE COLOR YELLOW; URINE GLUCOSE (UA) NEGATIVE (NEGATIVE); URINE KETONE NEGATIVE (NEGATIVE); URINE LEUK ESTERASE NEGATIVE (NEGATIVE); URINE NITRITE NEGATIVE (NEGATIVE); URINE PROTEIN NEGATIVE (NEGATIVE); URINE UROBILINOGEN NEGATIVE mg/dL (0.2-1.0)
[2017-06-19] MEDS ORDERED: MELATONIN 5 MG TABLETS PO PRN (22:00)
[2017-06-19] MEDS: cloNIDine HCL 0.1 MG TABLET PO SCH (22:19)
[2017-06-19] MEDS: THIAMINE HCL 100 MG TABLET (FP) PO SCH (22:21)
[2017-06-19] MEDS: QUEtiapine FUMARATE 50 MG TABLET PO SCH (22:21)
[2017-06-19] MEDS: CYCLOBENZAPRINE HCL 10 MG TABLET (FP) PO PRN (22:21)
[2017-06-20] MEDS: chlordiazePOXIDE HCL 25 MG CAPSULE PO SCH ×4 (05:26→22:38)
[2017-06-20] MEDS ORDERED: METHADONE HCL 10 MG TABLET (FOR DETOX USE ONLY) PO SCH (10:00)
[2017-06-20 10:17] LABS: HEMATOCRIT 36.3 % (32.4-45.2); HEMOGLOBIN 12.2 GM/dL (10.7-15.3); MCH 28.4 pg (25.7-33.7); MCHC 33.5 g/dl (32.0-36.0); MEAN CELL VOLUME 84.8 fl (80-96); MEAN PLT VOLUME 7.9 fl (7.5-11.1); PLATELET COUNT 249 K/MM3 (134-434); RBC 4.28 M/mm3 (3.60-5.2); RDW 14.2 % (11.6-15.6)
[2017-06-20 10:26] LABS: CHLORIDE 107 mmol/L (98-107); SODIUM 141 mmol/L (136-145)
[2017-06-20] MEDS: QUEtiapine FUMARATE 50 MG TABLET PO SCH (10:36)
[2017-06-20] MEDS: NICOTINE 21 MG/24 HOURS TOPICAL PATCH TD SCH (10:37)
[2017-06-20] MEDS: PRENATAL VITAMINS W/ FOLIC ACID TABLET (FP) PO SCH (10:37)
[2017-06-20] MEDS: cloNIDine HCL 0.1 MG TABLET PO SCH ×2 (10:37→22:38)
[2017-06-20 10:46] LABS: ALBUMIN 3.6 g/dl (3.4-5.0); ALK PHOS 103 U/L (45-117); ANION GAP 7 (8-16); BILIRUBIN,TOTAL 0.3 mg/dL (0.2-1.0); BLOOD UREA NITROGEN 15 mg/dL (7-18); CALCIUM 8.4 mg/dL (8.5-10.1); CO2 27 mmol/L (21-32); CREATININE 0.7 mg/dL (0.55-1.02); GLUCOSE,RANDOM 77 mg/dL (74-106); SGOT/AST 17 U/L (15-37); SGPT/ALT 14 U/L (12-78); TOT PROT 7.1 g/dl (6.4-8.2)
--- NOTE | 2017-06-20 12:00 | PN ---
[facility] CIWA - CIWA Score Nausea/Vomitin Muscle Tremors: 3 Anxiety: 3 Agitation: 3 Paroxysmal Sweats: 3 Orientation: 0-Oriented Tacttile Disturbances: 0-None Auditory Disturbances: 0-None Visual Disturbances: 0-None Headache: 0-None Present CIWA-Ar Total Score: 15 [facility]HS COWS - Scale Resting Pulse: 1= [place] 81-100 Sweatin= Chills/Flushing Restless Observation: 1= Difficult to Sit Still Pupil Size: 0= Normal to Room Light Bone or Joint Aches: 1= Mild Discomfort Runny Nose/ Eye Tearin= Nasal Congestion GI Upset > 30mins: 2= Nausea/Diarrhea Tremor Observation of Outstretched Hands: 2= Slight Tremor Visible Yawning Observation: 0= None Anxiety or Irritability: 1=Feels Anxious/Irritable Goose Flesh Skin: 3=Piloerection COWS Score: 13 [facility] Progress Note (SOAP) Subjective: nausea, sweats, interrupted sleep, anxiety, tremors Objective: 06/20/17 11:59 Vital Signs - 24 hr 06/19/17 06/19/17 06/20/17 17:26 22:37 00:30 Temperature 98.1 F 98.2 F Pulse Rate 87 78 Respiratory 18 20 18 Rate Blood Pressure 107/54 131/77 06/20/17 06/20/17 06/20/17 03:30 06:48 10:00 Temperature 98 F 96.4 F L Pulse Rate 73 96 H Respiratory 18 17 20 Rate Blood Pressure 101/67 112/77 tachycardia noted Laboratory Tests 06/19/17 06/20/17 06/20/17 14:00 05:45 05:45 WBC 8.0 D RBC 4.28 Hgb 12.2 Hct 36.3 MCV 84.8 MCH 28.4 MCHC 33.5 RDW 14.2 Plt Count 249 D MPV 7.9 D Sodium 141 Potassium 4.0 Chloride 107 Carbon Dioxide 27 Anion Gap 7 L BUN 15 Creatinine 0.7 Creat Clearance w eGFR > 60 Random Glucose 77 Calcium 8.4 L Total Bilirubin 0.3 AST 17 ALT 14 Alkaline Phosphatase 103 Total Protein 7.1 Albumin 3.6 Urine Color Yellow Urine Appearance Turbid Urine pH 5.0 D Ur Specific [place] 1.030 Urine Protein Negative Urine Glucose (UA) Negative Urine Ketones Negative Urine Blood Negative Urine Nitrite Negative Urine Bilirubin Negative Urine Urobilinogen Negative Ur Leukocyte Esterase Negative RPR Titer 06/20/17 05:45 WBC RBC Hgb Hct MCV MCH MCHC RDW Plt Count MPV Sodium Potassium Chloride Carbon Dioxide Anion Gap BUN Creatinine Creat Clearance w eGFR Random Glucose Calcium Total Bilirubin AST ALT Alkaline Phosphatase Total Protein Albumin Urine Color Urine Appearance Urine pH Ur Specific [place] Urine Protein Urine Glucose (UA) Urine Ketones Urine Blood Urine Nitrite Urine Bilirubin Urine Urobilinogen Ur Leukocyte Esterase RPR Titer Nonreactive Assessment: 06/20/17 11:59 withdrawal sx - cont detox, fluids, encourage ambualtion
--- NOTE | 2017-06-20 16:04 | PN ---
Psychiatric Progress Note Vital Signs: Vital Signs Period Temp Pulse Resp BP Sys/Archuleta Pulse Ox Last 24 Hr 96.4 F-98.2 F 73-96 16-20 94-131/53-77 Date of Session: 06/20/17 Chief Complaint:: "I'm not suicidal." HPI: Pt. admitted to for alcohol, crack, and opiate dependence. ROS: Unremarkable. Current Medications: Active Medications Generic Name Dose Route Start Last Admin Trade Name Freq PRN Reason Stop Dose Admin Acetaminophen 650 mg 06/19/17 12:22 Tylenol - PO Q4H PRN FEVER Al Hydroxide/Mg Hydroxide 30 ml 06/19/17 12:22 Mylanta Oral Suspension - PO Q6H PRN DYSPEPSIA Albuterol Sulfate 2 puff 06/19/17 12:26 Ventolin Hfa Inhaler - IH Q4H PRN ASTHMA Chlordiazepoxide HCl 25 mg 06/20/17 17:00 Librium - PO 06/21/17 11:01 [id number] ADOLFO Chlordiazepoxide HCl 15 mg 06/21/17 17:00 Librium - PO 06/22/17 11:01 [id number] ADOLFO Chlordiazepoxide HCl 10 mg 06/22/17 17:00 Librium - PO 06/23/17 11:01 [id number] ADOLFO Chlordiazepoxide HCl 25 mg 06/19/17 12:22 Librium - PO 06/22/17 12:22 Q4H PRN WITHDRAWAL(CONT SUBST) Clonidine 0.1 mg 06/19/17 22:00 06/20/17 10:37 Catapres - PO 0.1 mg BID ADOLFO Administration Cyclobenzaprine HCl 10 mg 06/19/17 12:25 06/19/17 22:21 Flexeril - PO 10 mg TID PRN Administration MUSCLE SPASMS Eucalyptus/Menthol/Phenol/Sorbitol 1 each 06/19/17 12:22 Cepastat Lozenge - MM Q4H PRN SORE THROAT Guaifenesin 10 ml 06/19/17 12:22 Robitussin Dm - PO Q6H PRN COUGH Hydroxyzine Pamoate 25 mg 06/19/17 12:22 Vistaril - PO Q4H PRN AGITATION Ibuprofen 400 mg 06/19/17 12:22 Motrin - PO Q6H PRN PAIN LEVEL 4-6 Loperamide HCl 4 mg 06/19/17 12:22 Imodium - PO Q6H PRN DIARRHEA Magnesium Citrate 300 ml 06/19/17 12:22 Citroma - PO Q48H PRN CONSTIPATION Magnesium Hydroxide 30 ml 06/19/17 12:22 Milk Of Magnesia - PO DAILY PRN CONSTIPATION Melatonin 5 mg 06/19/17 22:00 Melatonin PO HS PRN INSOMNIA Methadone HCl 15 mg 06/21/17 10:00 Dolophine - PO 06/22/17 10:01 DAILY ADOLFO Methadone HCl 5 mg 06/24/17 06:00 Dolophine - PO 06/24/17 06:01 DAILY@0600 ADOLFO Methadone HCl 10 mg 06/23/17 10:00 Dolophine - PO 06/23/17 10:01 DAILY ADOLFO Nicotine 21 mg 06/19/17 12:30 06/20/17 10:37 Nicoderm Patch - TD Not Given DAILY ADOLFO Nicotine Polacrilex 2 mg 06/19/17 12:22 Nicorette Gum - BUC Q2H PRN NICOTINE REPLACEMENT RX Multivit/Folic Acid/Iron 1 tab 06/20/17 10:00 06/20/17 10:37 Vitamins ([facility]) - PO 1 tab DAILY ADOLFO Administration Pseudoephedrine/Triprolidine 1 combo 06/19/17 12:22 Actifed - PO TID PRN NASAL CONGESTION Quetiapine Fumarate 50 mg 06/19/17 22:00 06/20/17 10:36 Seroquel - PO 50 mg BID ADOLFO Administration Quetiapine Fumarate 50 mg 06/20/17 16:15 Seroquel - PO 06/20/17 16:16 ONCE ONE Thiamine HCl 100 mg 06/19/17 22:00 06/19/17 22:21 Vitamin B1 - PO 100 mg HS ADOLFO Administration Medication(s) Change(s): Yes. One time dose of seroquel 50mg ordered. Seroquel increased to 100mg BID. Current Side Effect: No Lab tests ordered: No Lab tests reviewed: Yes Provider note:: Strategic Analyst received call from RN stating patient shouted "I want to hurt myself." Pt. with a history of schizophrenia and is currently endorsing auditory hallucinations. Upon assessment pt. denied suicidal ideation. Pt. stating," I will not kill myself. I did not mean that. I have never tried to kill myself." Pt. admits to auditory hallucinations but states the voices only talk to her about "stuff." Pt. seen yesterday by script writer for psychiatric consultation and denied h/o suicide attempt. Pt. currently denies command auditory hallucinations of voices telling her to hurt herself or other. Pt. reports frustration from her lifestyle of substance abuse and is requesting to stay in detox. Pt. is fully aware for the need of medication and is accepting of additional medications. One time dose of seroquel 50mg ordered. Seroquel dose to be increased to 100mg BID + benadryl 50mg qhs prn ordered for insomnia. In addition patient reports being able to approach staff if she begins to endorse thoughts to hurt herself or others. Will continue to monitor. Total face to face time:: 35 Mental Status Exam - Mental Status Exam Alert and Oriented to: Time, Place, Person Cognitive Function: Good Patient Appearance: Well Groomed Mood: Anxious, Euthymic Affect: Mood Congruent Patient Behavior: Appropriate, Cooperative Speech Pattern: Clear Voice Loudness: Normal Thought Process: Thought Blocking Thought Disorder: Not Present Hallucinations: Auditory (Voices tell her "stuff." Pt denies command auditory hallucinations. ) Suicidal Ideation: Denies Homicidal Ideation: Denies Insight/Judgement: Poor Sleep: Poorly Appetite: Fair Muscle strength/Tone: Normal Gait/Station: Normal Psychiatric Treatment Plan - Problem List (1) Drug-induced mood disorder Current Visit: Yes (2) Nicotine dependence Current Visit: Yes (3) Opioid dependence Current Visit: Yes (4) Alcohol dependence with uncomplicated withdrawal Current Visit: Yes (5) Opioid dependence with withdrawal Current Visit: Yes (6) Schizoaffective disorder Current Visit: Yes Comment: Pt. self reports. Pt is nonadherent to outpatient treatment and medications.
[2017-06-20] MEDS ORDERED: QUEtiapine FUMARATE 50 MG TABLET PO ONE (16:15)
[2017-06-20] MEDS ORDERED: diphenhydrAMINE HCL 50 MG CAPSULE PO PRN (22:00)
[2017-06-20] MEDS: QUEtiapine FUMARATE 100 MG TABLET (FP) PO SCH (22:38)
[2017-06-20] MEDS: CYCLOBENZAPRINE HCL 10 MG TABLET (FP) PO PRN (22:38)
[2017-06-20] MEDS: THIAMINE HCL 100 MG TABLET (FP) PO SCH (22:38)
[2017-06-21] MEDS: chlordiazePOXIDE HCL 25 MG CAPSULE PO SCH ×2 (05:22→10:40)
[2017-06-21] MEDS: QUEtiapine FUMARATE 100 MG TABLET (FP) PO SCH ×2 (09:42→22:31)
[2017-06-21] MEDS: PRENATAL VITAMINS W/ FOLIC ACID TABLET (FP) PO SCH (09:42)
[2017-06-21] MEDS: cloNIDine HCL 0.1 MG TABLET PO SCH ×2 (10:40→22:30)
[2017-06-21] MEDS: METHADONE HCL 5 MG TABLET (FOR DETOX USE ONLY) PO SCH (10:40)
[2017-06-21] MEDS: NICOTINE 21 MG/24 HOURS TOPICAL PATCH TD SCH (10:42)
[2017-06-21] MEDS ORDERED: HALOPERIDOL 5 MG TABLET (FP) PO STA ×2 (13:06→13:11)
[2017-06-21] MEDS ORDERED: HALOPERIDOL 5 MG TABLET (FP) PO PRN (13:09)
[2017-06-21] MEDS ORDERED: HALOPERIDOL 1 MG TABLET (FP) PO ONE (13:09)
--- NOTE | 2017-06-21 13:17 | PN ---
Psychiatric Progress Note Vital Signs: Vital Signs Period Temp Pulse Resp BP Sys/Archuleta Pulse Ox Last 24 Hr 96.8 F-97.7 F 72-93 16-20 91-108/53-65 Date of Session: 06/21/17 Chief Complaint:: Auditory hallucinations, agitation HPI: As per nursing report patient became agitated and irritable, loud and anxious, reports hearing voices. Current Medications: Active Medications Generic Name Dose Route Start Last Admin Trade Name Freq PRN Reason Stop Dose Admin Acetaminophen 650 mg 06/19/17 12:22 Tylenol - PO Q4H PRN FEVER Al Hydroxide/Mg Hydroxide 30 ml 06/19/17 12:22 Mylanta Oral Suspension - PO Q6H PRN DYSPEPSIA Albuterol Sulfate 2 puff 06/19/17 12:26 Ventolin Hfa Inhaler - IH Q4H PRN ASTHMA Chlordiazepoxide HCl 15 mg 06/21/17 17:00 Librium - PO 06/22/17 11:01 [id number] ADOLFO Chlordiazepoxide HCl 10 mg 06/22/17 17:00 Librium - PO 06/23/17 11:01 [id number] ADOLFO Chlordiazepoxide HCl 25 mg 06/19/17 12:22 Librium - PO 06/22/17 12:22 Q4H PRN WITHDRAWAL(CONT SUBST) Clonidine 0.1 mg 06/19/17 22:00 06/21/17 10:40 Catapres - PO Not Given BID ADOLFO Cyclobenzaprine HCl 10 mg 06/19/17 12:25 06/20/17 22:38 Flexeril - PO 10 mg TID PRN Administration MUSCLE SPASMS Diphenhydramine HCl 50 mg 06/20/17 22:00 Benadryl - PO HS PRN INSOMNIA Diphenhydramine HCl 50 mg 06/21/17 13:07 Benadryl - PO 06/21/17 13:08 ONCE STA Eucalyptus/Menthol/Phenol/Sorbitol 1 each 06/19/17 12:22 Cepastat Lozenge - MM Q4H PRN SORE THROAT Guaifenesin 10 ml 06/19/17 12:22 Robitussin Dm - PO Q6H PRN COUGH Haloperidol 5 mg 06/21/17 13:11 Haldol - PO 06/21/17 13:12 ONCE STA Haloperidol 1 mg 06/21/17 13:13 Haldol - PO Q4HWA PRN AGITATION Hydroxyzine Pamoate 25 mg 06/19/17 12:22 Vistaril - PO Q4H PRN AGITATION Ibuprofen 400 mg 06/19/17 12:22 Motrin - PO Q6H PRN PAIN LEVEL 4-6 Loperamide HCl 4 mg 06/19/17 12:22 Imodium - PO Q6H PRN DIARRHEA Magnesium Citrate 300 ml 06/19/17 12:22 Citroma - PO Q48H PRN CONSTIPATION Magnesium Hydroxide 30 ml 06/19/17 12:22 Milk Of Magnesia - PO DAILY PRN CONSTIPATION Melatonin 5 mg 06/19/17 22:00 Melatonin PO HS PRN INSOMNIA Methadone HCl 15 mg 06/21/17 10:00 06/21/17 10:40 Dolophine - PO 06/22/17 10:01 15 mg DAILY ADOLFO Administration Methadone HCl 5 mg 06/24/17 06:00 Dolophine - PO 06/24/17 06:01 DAILY@0600 ADOLFO Methadone HCl 10 mg 06/23/17 10:00 Dolophine - PO 06/23/17 10:01 DAILY ADOLFO Nicotine 21 mg 06/19/17 12:30 06/21/17 10:42 Nicoderm Patch - TD Not Given DAILY ADOLFO Nicotine Polacrilex 2 mg 06/19/17 12:22 Nicorette Gum - BUC Q2H PRN NICOTINE REPLACEMENT RX Multivit/Folic Acid/Iron 1 tab 06/20/17 10:00 06/21/17 09:42 Vitamins (Sjr) - PO 1 tab DAILY ADOLFO Administration Pseudoephedrine/Triprolidine 1 combo 06/19/17 12:22 Actifed - PO TID PRN NASAL CONGESTION Quetiapine Fumarate 100 mg 06/20/17 22:00 06/21/17 09:42 Seroquel - PO 100 mg BID ADOLFO Administration Thiamine HCl 100 mg 06/19/17 22:00 06/20/17 22:38 Vitamin B1 - PO 100 mg HS ADOLFO Administration Medication(s) Change(s): Haldol 5mg po stat. Benadryl 50mg po stat. Haldol 1mg po prn q4 for agitation Provider note:: Patient evaluated, chart reveved. As per chart, the same psychotic episode happened yesterday, patioent has been evaluated by Dr. Cai and Seroquel was increased to 100mg po bid, in addition Seroquel 50mg p[ o stat was used. Currently patient redirectional and cooperative, reports agitation and irritability, supportive psychotherapy provided, patient following directions, denies suicidal and homicidal ideation, agrees to takie medications to stop anxiety and irritability. Mental Status Exam - Mental Status Exam Alert and Oriented to: Person Cognitive Function: Fair Patient Appearance: Unkempt Mood: Anxious, Irritable Affect: Labile Patient Behavior: Cooperative Speech Pattern: Appropriate Voice Loudness: Mildly Soft/Quiet Thought Process: Circumstantial, Goal Oriented Thought Disorder: Being Controlled Hallucinations: Denies Suicidal Ideation: Denies Homicidal Ideation: Denies Insight/Judgement: Fair Sleep: Difficulty falling asleep Appetite: Weight loss Muscle strength/Tone: Mild Hypertonicity Gait/Station: Normal Additional Comments: Haldol 5mg po stat. Benadryl 50mg po stat. Haldol 1mg po prn q4 for agitation Psychiatric Treatment Plan - Problem List (1) Alcohol dependence with uncomplicated withdrawal Current Visit: Yes (2) Drug-induced mood disorder Current Visit: Yes (3) Nicotine dependence Current Visit: Yes (4) Opioid dependence with withdrawal Current Visit: Yes (5) Schizoaffective disorder Current Visit: Yes Comment: Pt. self reports. Pt is nonadherent to outpatient treatment and medications. (6) Benzodiazepine withdrawal without complication Current Visit: No (7) Bipolar 1 disorder Current Visit: No Initial treatment plan: Haldol 5mg po stat. Benadryl 50mg po stat. Haldol 1mg po prn q4 for agitation
[2017-06-21] MEDS ORDERED: diphenhydrAMINE HCL 50 MG CAPSULE PO STA (13:20)
[2017-06-21] MEDS ORDERED: diphenhydrAMINE HCL 25 MG CAPSULE (FP) PO ONE (13:22)
--- NOTE | 2017-06-21 14:52 | PN ---
S CIWA - CIWA Score Nausea/Vomitin Muscle Tremors: 3 Anxiety: 3 Agitation: 3 Paroxysmal Sweats: 3 Orientation: 0-Oriented Tacttile Disturbances: 0-None Auditory Disturbances: 0-None Visual Disturbances: 0-None Headache: 0-None Present CIWA-Ar Total Score: 15 BHS COWS - Scale Resting Pulse: 1= [place] 81-100 Sweatin= Chills/Flushing Restless Observation: 1= Difficult to Sit Still Pupil Size: 0= Normal to Room Light Bone or Joint Aches: 1= Mild Discomfort Runny Nose/ Eye Tearin= Nasal Congestion GI Upset > 30mins: 2= Nausea/Diarrhea Tremor Observation of Outstretched Hands: 1= Tremor [place], Not Seen Yawning Observation: 1= 1-2x During Session Anxiety or Irritability: 2=Irritable/Anxious Goose Flesh Skin: 3=Piloerection COWS Score: 14 S Progress Note (SOAP) Subjective: nausea, sweats, interrupted sleep, anxiety, tremors Objective: 06/21/17 14:51 Vital Signs - 24 hr 06/20/17 06/20/17 06/21/17 17:17 21:59 00:30 Temperature 97.7 F 97.2 F L Pulse Rate 82 72 Respiratory 18 18 18 Rate Blood Pressure 98/58 92/54 06/21/17 06/21/17 06/21/17 03:30 06:00 11:09 Temperature 96.8 F L 97.7 F Pulse Rate 85 93 H Respiratory 18 16 20 Rate Blood Pressure 91/57 108/65 Laboratory Tests 06/19/17 06/20/17 06/20/17 14:00 05:45 05:45 WBC 8.0 D RBC 4.28 Hgb 12.2 Hct 36.3 MCV 84.8 MCH 28.4 MCHC 33.5 RDW 14.2 Plt Count 249 D MPV 7.9 D Sodium 141 Potassium 4.0 Chloride 107 Carbon Dioxide 27 Anion Gap 7 L BUN 15 Creatinine 0.7 Creat Clearance w eGFR > 60 Random Glucose 77 Calcium 8.4 L Total Bilirubin 0.3 AST 17 ALT 14 Alkaline Phosphatase 103 Total Protein 7.1 Albumin 3.6 Urine Color Yellow Urine Appearance Turbid Urine pH 5.0 D Ur Specific [place] 1.030 Urine Protein Negative Urine Glucose (UA) Negative Urine Ketones Negative Urine Blood Negative Urine Nitrite Negative Urine Bilirubin Negative Urine Urobilinogen Negative Ur Leukocyte Esterase Negative RPR Titer 06/20/17 05:45 WBC RBC Hgb Hct MCV MCH MCHC RDW Plt Count MPV Sodium Potassium Chloride Carbon Dioxide Anion Gap BUN Creatinine Creat Clearance w eGFR Random Glucose Calcium Total Bilirubin AST ALT Alkaline Phosphatase Total Protein Albumin Urine Color Urine Appearance Urine pH Ur Specific [place] Urine Protein Urine Glucose (UA) Urine Ketones Urine Blood Urine Nitrite Urine Bilirubin Urine Urobilinogen Ur Leukocyte Esterase RPR Titer Nonreactive Assessment: 06/21/17 14:52 withdrawal sx, cotn detox, fluids, encoruage ambualtion
[2017-06-21] MEDS: CYCLOBENZAPRINE HCL 10 MG TABLET (FP) PO PRN ×2 (15:38→22:30)
[2017-06-21] MEDS: chlordiazePOXIDE 5 MG CAPSULE PO SCH ×2 (17:38→22:30)
[2017-06-21] MEDS: HALOPERIDOL 1 MG TABLET (FP) PO PRN ×2 (17:40→22:30)
[2017-06-21] MEDS: THIAMINE HCL 100 MG TABLET (FP) PO SCH (22:31)
[2017-06-22] MEDS: chlordiazePOXIDE 5 MG CAPSULE PO SCH ×2 (06:16→10:37)
[2017-06-22] MEDS: HALOPERIDOL 1 MG TABLET (FP) PO PRN ×4 (07:23→22:55)
[2017-06-22] MEDS: cloNIDine HCL 0.1 MG TABLET PO SCH ×2 (10:37→22:55)
[2017-06-22] MEDS: PRENATAL VITAMINS W/ FOLIC ACID TABLET (FP) PO SCH (10:37)
[2017-06-22] MEDS: QUEtiapine FUMARATE 100 MG TABLET (FP) PO SCH ×2 (10:37→22:55)
[2017-06-22] MEDS: METHADONE HCL 5 MG TABLET (FOR DETOX USE ONLY) PO SCH (10:37)
[2017-06-22] MEDS: NICOTINE 21 MG/24 HOURS TOPICAL PATCH TD SCH (10:38)
--- NOTE | 2017-06-22 12:02 | PN ---
BHS Progress Note (SOAP) Subjective: sweats, shakes, interupted sleep Objective: 06/22/17 12:01 Vital Signs Temperature 98.4 F 06/22/17 10:00 Pulse Rate 110 H 06/22/17 10:00 Respiratory Rate 16 06/22/17 10:00 Blood Pressure 109/60 06/22/17 10:00 O2 Sat by Pulse Oximetry (%) Laboratory Tests 06/19/17 06/20/17 06/20/17 14:00 05:45 05:45 WBC 8.0 D RBC 4.28 Hgb 12.2 Hct 36.3 MCV 84.8 MCH 28.4 MCHC 33.5 RDW 14.2 Plt Count 249 D MPV 7.9 D Sodium 141 Potassium 4.0 Chloride 107 Carbon Dioxide 27 Anion Gap 7 L BUN 15 Creatinine 0.7 Creat Clearance w eGFR > 60 Random Glucose 77 Calcium 8.4 L Total Bilirubin 0.3 AST 17 ALT 14 Alkaline Phosphatase 103 Total Protein 7.1 Albumin 3.6 Urine Color Yellow Urine Appearance Turbid Urine pH 5.0 D Ur Specific [place] 1.030 Urine Protein Negative Urine Glucose (UA) Negative Urine Ketones Negative Urine Blood Negative Urine Nitrite Negative Urine Bilirubin Negative Urine Urobilinogen Negative Ur Leukocyte Esterase Negative RPR Titer 06/20/17 05:45 WBC RBC Hgb Hct MCV MCH MCHC RDW Plt Count MPV Sodium Potassium Chloride Carbon Dioxide Anion Gap BUN Creatinine Creat Clearance w eGFR Random Glucose Calcium Total Bilirubin AST ALT Alkaline Phosphatase Total Protein Albumin Urine Color Urine Appearance Urine pH Ur Specific [place] Urine Protein Urine Glucose (UA) Urine Ketones Urine Blood Urine Nitrite Urine Bilirubin Urine Urobilinogen Ur Leukocyte Esterase RPR Titer Nonreactive pt aox3 in nad ambulating Assessment: 06/22/17 12:02 withdrawal sx's Plan: cont. detox increase fluids `
[2017-06-22] MEDS: CYCLOBENZAPRINE HCL 10 MG TABLET (FP) PO PRN ×2 (15:03→22:55)
[2017-06-22] MEDS: chlordiazePOXIDE HCL 10 MG CAPSULE PO SCH ×2 (17:20→22:54)
[2017-06-22] MEDS: hydrOXYzine PAMOATE 25 MG CAPSULE (FP) PO PRN (18:33)
[2017-06-22] MEDS: THIAMINE HCL 100 MG TABLET (FP) PO SCH (22:55)
[2017-06-23] MEDS: chlordiazePOXIDE HCL 10 MG CAPSULE PO SCH ×2 (06:21→11:59)
[2017-06-23] MEDS: hydrOXYzine PAMOATE 25 MG CAPSULE (FP) PO PRN (07:02)
[2017-06-23] MEDS: HALOPERIDOL 1 MG TABLET (FP) PO PRN (07:02)
[2017-06-23] MEDS ORDERED: METHADONE HCL 10 MG TABLET (FOR DETOX USE ONLY) PO SCH (10:00)
--- NOTE | 2017-06-23 10:25 | PN ---
S Progress Note (SOAP) Subjective: ALERT,NO COMPLAINT Objective: 06/23/17 10:23 Vital Signs Temperature 96.8 F L 06/23/17 06:58 Pulse Rate 82 06/23/17 06:58 Respiratory Rate 18 06/23/17 06:58 Blood Pressure 108/65 06/23/17 06:58 O2 Sat by Pulse Oximetry (%) Assessment: 06/23/17 10:23 NO WITHDRAWAL SYMPTOM,STABLE FOR DISCHARGE TODAY Plan: DISCHARGE TODAY,FOLLOW UP WITH AFTER CARE PROGRAM ARRANGEMENT
--- NOTE | 2017-06-23 10:28 | DS ---
[facility] Detox Discharge Summary Admission Date: 06/19/17 Discharge Date: 06/23/17 - History Present History: Alcohol Dependence, Opioid Dependence Additional Comments: FOLLOW UP WITH AFTER CARE PROGRAM ARRANGEMENT Pertinent Past History: ASTHMA BIPOLAR DISORDER WEIGHT LOSS IV DRUG USER NICOTINE DEPENDENCE - Physical Exam Results Vital Signs: Vital Signs Temperature 96.8 F L 06/23/17 06:58 Pulse Rate 82 06/23/17 06:58 Respiratory Rate 18 06/23/17 06:58 Blood Pressure 108/65 06/23/17 06:58 O2 Sat by Pulse Oximetry (%) Pertinent Admission Physical Exam Findings: WITHDRAWAL SIGNS AND SYMPTOM - Treatment Hospital Course: Detox Protocol Followed, Detoxed Safely, Responded well, Discharged Condition Good Patient has Accepted a Rehab Referral to: DECLINED - Medication Discharge Medications: Ambulatory Orders Albuterol Sulfate Inhaler - [Ventolin HFA Inhaler -] 0 puff IH Q4H PRN #0 inhaler 11/20/14 - Diagnosis (1) Opioid dependence with withdrawal Current Visit: Yes Status: Chronic (2) Alcohol dependence with uncomplicated withdrawal Current Visit: Yes Status: Chronic (3) Asthma Current Visit: No Status: Chronic Qualifiers: Asthma severity: mild Asthma complication type: unspecified (4) Bipolar 1 disorder Current Visit: No Status: Suspected (5) Weight loss Current Visit: Yes Status: Deleted (6) IV drug user Current Visit: Yes Status: Acute (7) Nicotine dependence Current Visit: Yes Status: Acute Qualifiers: Nicotine product type: cigarettes Substance use status: uncomplicated Qualified Code(s): F17.210 - Nicotine dependence, cigarettes, uncomplicated - AMA Did Patient Leave Against Medical Advice: No
[2017-06-23] MEDS: PRENATAL VITAMINS W/ FOLIC ACID TABLET (FP) PO SCH (10:46)
[2017-06-23] MEDS: NICOTINE 21 MG/24 HOURS TOPICAL PATCH TD SCH (10:47)
[2017-06-23] MEDS: QUEtiapine FUMARATE 100 MG TABLET (FP) PO SCH (11:00)
[2017-06-23 11:28] VITALS: BP 101/62; PULSE 89; TEMP 97.3
[2017-06-23] MEDS: cloNIDine HCL 0.1 MG TABLET PO SCH (11:58)
[2017-06-24] MEDS ORDERED: METHADONE HCL 5 MG TABLET (FOR DETOX USE ONLY) PO SCH (06:00)
== END 2017-06-23 11:45 | disposition home or self-care (01) | DRG 773 ==
LOC: YASAS 10:20 → Y6N 12:18
PROVIDERS: ADMIT Internal Medicine; ATTEND Internal Medicine
PROC: HZ2ZZZZ Detoxification Services for Substance Abuse Treatment (ICD-10-PCS; principal; 2017-06-19)
DX: F11.23 Opioid dependence with withdrawal (principal); F10.230 Alcohol dependence with withdrawal, uncomplicated; F13.230 Sedative, hypnotic or anxiolytic dependence with withdrawal, uncomplicated; F17.210 Nicotine dependence, cigarettes, uncomplicated; F31.89 Other bipolar disorder; F25.9 Schizoaffective disorder, unspecified; F19.24 Other psychoactive substance dependence with psychoactive substance-induced mood disorder; J45.20 Mild intermittent asthma, uncomplicated; E86.0 Dehydration; Z91.038 Other insect allergy status; Z91.013 Allergy to seafood; Z87.898 Personal history of other specified conditions
CPT/HCPCS: 36415; 80053; 81003; 85027; 86593; 93005; 93010; J0735

== ENCOUNTER 2017-07-23 12:23 | Inpatient (IN) | payer OTHER ==
[2017-07-23 15:28] VITALS: BMI 21.4
--- NOTE | 2017-07-23 18:17 | HP ---
COWS - Scale Resting Pulse: 2= ID [id number] Sweatin=Flushed/Facial Moisture Restless Observation: 1= Difficult to Sit Still Pupil Size: 2= Moderately Dilated Bone or Joint Aches: 1= Mild Discomfort Runny Nose/ Eye Tearin= Nasal Congestion GI Upset > 30mins: 0= None Tremor Observation: 2= Slight Tremor Visible Yawning Observation: 0= None Anxiety or Irritability: 2=Irritable/Anxious Goose Flesh Skin: 0=Smooth Skin COWS Score: 13 CIWA Score - CIWA Score Nausea/Vomitin-No Nausea/No Vomiting Muscle Tremors: 4-Moderate,w/Arms Extend Anxiety: 1-Mildly Anxious Agitation: 1-Slight > Activity Paroxysmal Sweats: 4-Forehead w/Sweat Beads Orientation: 0-Oriented Tacttile Disturbances: 0-None Auditory Disturbances: 0-None (Hx/ auditory hallucinations.) Visual Disturbances: 0-None (Hx visual hallucinations.) Headache: 2-Mild CIWA-Ar Total Score: 12 Admission ROS S - HPI Chief Complaint: Here to detox from opiates and alcohol and get life together. Allergies/Adverse Reactions: Allergies Allergy/AdvReac Type Severity Reaction Status Date / Time buprenorphine [From Suboxone] Allergy Severe Vomiting Verified 07/23/17 16:26 Fish Containing Products Allergy Severe Hives Verified 06/19/17 11:55 naloxone [From Suboxone] Allergy Severe Vomiting Verified 07/23/17 16:26 venom-honey bee Allergy Severe Swelling Verified 06/19/17 11:55 [bee venom (honey bee)] No Known Drug Allergies Allergy Verified 03/15/17 00:08 History of Present Illness: 41 yof hx of heroin use disorder since age 16 currently uses IV. Alcohol use disorder since age 16. Hx. asthma since childhood with frequent wheezing. Nasal tenderness x 2 years. States hx. Schizophrenia since age 16, rx'd in past w/ Seroquel, last take 1 month ago. Hx. anxiety disorder and rx'd with Xanax. - Ebola screening Have you traveled outside of the country in the last 21 days: No Have you had contact with anyone from an Ebola affected area: No Have you been sick,other than usual withdrawal symptoms: No Do you have a fever: No - Review of Systems Constitutional: Diaphoresis, Changes in sleep (hx insomnia) EENT: reports: Nose Congestion (Pain inside of nose for years. Denies bleeding.) Respiratory: reports: Other (Hx. asthma states frequent wheezing which is exacerbated by anxiety.) Cardiac: reports: No Symptoms Reported GI: reports: No Symptoms Reported : reports: No Symptoms Reported Musculoskeletal: reports: Other (Generalized achyness of bones r/t w/drawal.) Integumentary: reports: No Symptoms Reported Neuro: reports: Headache (Mild headache r/t w/drawal.), Seizure (Hx. seizures. Denies recent seizure hx.) Endocrine: reports: No Symptoms Reported Hematology: reports: No Symptoms Reported Psychiatric: reports: Orientated x3, Agitated, Anxious, Depressed (x 2 years.), other (States has Schizophrenia and takes Seroquel. Denies suicide or violent ideation.) Patient History - Patient Medical History Hx Anemia: No Hx Asthma: Yes (Pt is on MDI.) Hx Chronic Obstructive Pulmonary Disease (COPD): No Hx Cancer: No Hx Cardiac Disorders: No Hx Congestive Heart Failure: No Hx Hypertension: No Hx Hypercholesterolemia: No Hx Pacemaker: No HX Cerebrovascular Accident: No Hx Seizures: No Hx Dementia: No Hx Diabetes: No Hx Gastrointestinal Disorders: No Hx Liver Disease: No Hx Genitourinary Disorders: No Hx Sexually Transmitted Disorders: No Hx Renal Disease (ESRD): No Hx Thyroid Disease: No Hx Human Immunodeficiency Virus (HIV): No (last 2016 negative) Hx Hepatitis C: No Hx Depression: Yes Hx Suicide Attempt: No Hx Bipolar Disorder: Yes Hx Schizophrenia: No - Patient Surgical History Past Surgical History: No - PPD History Previous Implant?: Yes Documented Results: Negative w/proof Implanted On Prior [facility] Admission?: Yes Date: 03/15/17 PPD to be Administered?: No - Reproductive History Last Menstrual Period: 05/23/17 Patient : No - Smoking Cessation Smoking history: Current every day smoker Have you smoked in the past 12 months: Yes Aproximately how many cigarettes per day: 20 Cigars Per Day: 0 Hx Chewing Tobacco Use: No Initiated information on smoking cessation: Yes 'Breaking Loose' booklet given: 07/23/17 - Substance & Tx. History Hx Alcohol Use: Yes Hx Substance Use: Yes Substance Use Type: Alcohol, Heroin, Opiates, Tranquilizers (Prescription alprazalam) Hx Substance Use Treatment: Yes (opiates, methadone cocaine, alcohol) - Substances Abused Heroin Route: Injection Frequency: Daily Amount used: 10 bags Age of first use: 16 Date of Last Use: 07/23/17 Cocaine Route: Injection Frequency: Daily Amount used: 10 bags Age of first use: 16 (used to sniff when younger) Date of Last Use: 07/23/17 Alcohol Route: Oral Frequency: Daily Amount used: 1 pint vodka Age of first use: 16 Date of Last Use: 07/22/17 Family Disease History - Family Disease History Family History: Denies Admission Physical Exam [facility] - Vital Signs Vital Signs: Vital Signs - 24 hr 07/23/17 15:26 Temperature 96 F L Pulse Rate 105 H Respiratory 20 Rate Blood Pressure 100/67 - Physical General Appearance: Yes: Mild Distress, Tremorous, Irritable, Anxious HEENTM: Yes: Hearing grossly Normal, Normal Voice, OMID, Sinus Tenderness ( Tender upon palpation. Perforated nasal septum. Mild erythema nasal mucosa.), Other (Perforated nasal septum.) Respiratory: Yes: Wheezing (Bilateral insp and exp wheeze. No rales/rhonchi.) Neck: Yes: No masses,lesions,Nodules, Supple Breast: Yes: Breast Exam Deferred Cardiology: Yes: Regular Rhythm, S1, S2 Abdominal: Yes: Non Tender, Flat, Soft, Organomegaly Genitourinary: Yes: Within Normal Limits Back: Yes: Normal Inspection Musculoskeletal: Yes: Within Normal Limits, full range of Motion, Gait Steady Extremities: Yes: Normal Inspection, Normal Range of Motion, Non-Tender Neurological: Yes: Fully Oriented, Alert, Motor Strength 5/5 Integumentary: Yes: Track Olson (Old and new track olson bilateral antecubital areas.) Lymphatic: Yes: Within Normal Limits - Diagnostic (1) Perforated nasal septum Current Visit: Yes Status: Chronic (2) Nicotine dependence Current Visit: Yes Status: Acute Qualifiers: Nicotine product type: cigarettes Substance use status: uncomplicated Qualified Code(s): F17.210 - Nicotine dependence, cigarettes, uncomplicated (3) Alcohol dependence with uncomplicated withdrawal Current Visit: Yes Status: Acute (4) Asthma Current Visit: Yes Status: Acute Qualifiers: Asthma severity: mild Asthma complication type: unspecified (5) Benzodiazepine withdrawal without complication Current Visit: Yes Status: Chronic Comment: TELEGRAPH MESSENGER indicates alprazolam 0.5 mg PO Tabs. Last dispensed 10 tabs on 06/25/17. (6) Opioid dependence with withdrawal Current Visit: Yes Status: Acute (7) Schizoaffective disorder Current Visit: Yes Status: Chronic Comment: Pt. self reports. Pt is nonadherent to outpatient treatment and medications. Cleared for Admission [facility] - Detox or Rehab [facility] Level of Care: Medically Managed Detox Regimen/Protocol: Methadone/Librium [facility] Breath Alcohol Content Breath Alcohol Content: 0 Urine Pregancy Test - Result Urine Test Results: Negative- NO Line Present Urine Drug Screen - Results Drug Screen Negative: No Urine Drug Screen Results: FLAKITO-Cocaine, OPI-Opiates, BZO-Benzodiazepines
[2017-07-23] MEDS ORDERED: MENTHOL/PHENOL 1 EACH UD MM PRN (18:48)
[2017-07-23] MEDS ORDERED: IBUPROFEN 400 MG TABLET (FP) PO PRN (18:48)
[2017-07-23] MEDS ORDERED: P-EPHED 60MG/TRIPROLIDI 2.5MG TABLET PO PRN (18:48)
[2017-07-23] MEDS ORDERED: MAGNESIUM HYDROX 2400MG/30ML ORAL SUSPENSION 30 ML CUP PO PRN (18:48)
[2017-07-23] MEDS ORDERED: MAG HYDROX/AL HYDROX/SIMETH 30 ML UNIT-DOSE CUP PO PRN (18:48)
[2017-07-23] MEDS ORDERED: NICOTINE POLACRILEX 2 MG GUM BC PRN (18:48)
[2017-07-23] MEDS ORDERED: ACETAMINOPHEN 325 MG TABLET (FP) PO PRN (18:48)
[2017-07-23] MEDS ORDERED: guaiFENesin/D-METHORPHAN HB 10 ML UNIT-DOSE CUPS PO PRN (18:48)
[2017-07-23] MEDS ORDERED: MAGNESIUM CITRATE 300 ML BOTTLE PO PRN (18:48)
[2017-07-23] MEDS ORDERED: LOPERAMIDE HCL 2 MG CAPSULE PO PRN (18:48)
[2017-07-23] MEDS ORDERED: hydrOXYzine PAMOATE 50 MG CAPSULE (FP) PO PRN (18:48)
[2017-07-23] MEDS ORDERED: METHADONE HCL 10 MG TABLET (FOR DETOX USE ONLY) PO ONE ×2 (18:48→23:00)
[2017-07-23] MEDS ORDERED: ALBUTEROL SO4 18 GM HFA INHALER IH PRN (18:52)
[2017-07-23] MEDS ORDERED: ALBUTEROL SO4 0.083% IH SOL 2.5 MG/3 ML VIAL.NEB. NEB PRN (18:53)
[2017-07-23] MEDS: chlordiazePOXIDE HCL 25 MG CAPSULE PO PRN (19:28)
[2017-07-23] MEDS ORDERED: MELATONIN 5 MG TABLETS PO PRN (22:00)
[2017-07-23] MEDS: THIAMINE HCL 100 MG TABLET (FP) PO SCH (22:18)
[2017-07-23] MEDS: chlordiazePOXIDE HCL 25 MG CAPSULE PO SCH (22:18)
[2017-07-23 23:02] LABS: URINE APPEARANCE CLOUDY; URINE BILIRUBIN NEGATIVE (<2.0 mg/dL); URINE BLOOD NEGATIVE (NEGATIVE); URINE COLOR YELLOW; URINE GLUCOSE (UA) NEGATIVE (NEGATIVE); URINE KETONE NEGATIVE (NEGATIVE); URINE LEUK ESTERASE NEGATIVE (NEGATIVE); URINE NITRITE NEGATIVE (NEGATIVE); URINE PROTEIN NEGATIVE (NEGATIVE)
[2017-07-24] MEDS: chlordiazePOXIDE HCL 25 MG CAPSULE PO SCH ×4 (05:11→22:11)
--- NOTE | 2017-07-24 09:14 | CONSULT ---
[facility] Psychiatric Consult - Data Date of interview: 07/24/17 Admission source: [facility] Identifying data: Patient is a 41 year old single female, unemployed (not receiving financial assistance), and currently homeless. This is one of multiple admissions for patient. Patient admitted to for opiate, benzodiazepines, and cocaine dependence. Substance Abuse History: Following information confirmed with Ms. Ashford: - Smoking Cessation. Smoking history: Current every day smoker. Have you smoked in the past 12 months: Yes. Aproximately how many cigarettes per day: 20. Cigars Per Day: 0. Hx Chewing Tobacco Use: No. Initiated information on smoking cessation: Yes. 'Breaking Loose' booklet given: 07/23/17. - Substance & Tx. History. Hx Alcohol Use: Yes. Hx Substance Use: Yes. Substance Use Type : Alcohol, Heroin, Opiates, Tranquilizers (Prescription alprazalam). Hx Substance Use Treatment: Yes (opiates, methadone cocaine, alcohol). - Substances Abused. Heroin. Route: Injection. Frequency: Daily. Amount used: 10 bags. Age of first use: 16. Date of Last Use: 07/23/17. Cocaine. Route: Injection. Frequency: Daily. Amount used: 10 bags. Age of first use : 16 (used to sniff when younger). Date of Last Use: 07/23/17. Alcohol. Route: Oral. Frequency: Daily. Amount used: 1 pint vodka. Age of first use: 16. Date of Last Use: 07/22/17 Medical History: Asthma Psychiatric History: Patient presents as internally preoccupied, laughing inappropiately, and with an unclear psychiatric history. Patient was recently admitted to [facility] on 05/2017. Patient reports having approximately " 100 psychiatric hospitalizations." Most recent admission was at [facility] in [facility]. When asked which medication she was prescribed patient responded, " They gave me a shot of Smirnoff." Patient then reports taking haldol but stated it made her restless so she prefers seroquel. When asked if she currently receives outpatient care, patient responded, "I don't know i see one whenever I want." Patient thought blocking and unable to give a coheisve psychiatric history. Patient reports a diagnosis of schizoaffective and bipolar disorder. Patient is nonadherent to medications and outpatient care. Pt. reports one suicide attempt in via cutting self on right forearm. Patient currently denies suicidal and homicidal ideation. Physical/Sexual Abuse/Trauma History: Denies. Mental Status Exam - Mental Status Exam Alert and Oriented to: Time, Place, Person Cognitive Function: Fair Patient Appearance: Well Groomed Mood: Euthymic Affect: Mood Congruent Patient Behavior: Cooperative Speech Pattern: Clear Voice Loudness: Normal Thought Process: Goal Oriented, Disorganized (Patient unable to give a cohesive psychiatric history but is able to answer most questions. ) Thought Disorder: Being Controlled (thoughtblocking possibly present) Hallucinations: Auditory Suicidal Ideation: Denies Homicidal Ideation: Denies Insight/Judgement: Poor Sleep: Fair Appetite: Fair Muscle strength/Tone: Normal Gait/Station: Normal Psychiatric Findings - Problem List ([place] 1, 2,3) (1) Alcohol dependence with uncomplicated withdrawal Current Visit: Yes Status: Acute (2) Opioid dependence with withdrawal Current Visit: Yes Status: Acute (3) Benzodiazepine withdrawal without complication Current Visit: Yes Status: Chronic Comment: INFORMATION TECHNOLOGY ANALYST indicates alprazolam 0.5 mg PO Tabs. Last dispensed 10 tabs on 06/25/17. (4) Drug-induced mood disorder Current Visit: Yes Status: Acute (5) Schizoaffective disorder Current Visit: Yes Status: Chronic Comment: Pt. self reports. Pt is nonadherent to outpatient treatment and medications. (6) Nicotine dependence Current Visit: Yes Status: Chronic Qualifiers: Nicotine product type: cigarettes Substance use status: uncomplicated Qualified Code(s): F17.210 - Nicotine dependence, cigarettes, uncomplicated - Initial Treatment Plan Initial Treatment Plan: Psychoeducation provided. Detoxification in progress. Patient agreeable to restarting seroquel. Will order Seroquel 50mg PO daily + Seroquel 100mg HS. Benefits and side effects discussed. Verbal consent given.
[2017-07-24] MEDS ORDERED: CYCLOBENZAPRINE HCL 10 MG TABLET (FP) PO PRN (09:47)
[2017-07-24] MEDS ORDERED: METHADONE HCL 10 MG TABLET (FOR DETOX USE ONLY) PO SCH (10:00)
[2017-07-24] MEDS ORDERED: QUEtiapine FUMARATE 50 MG TABLET PO SCH (10:00)
[2017-07-24 10:04] LABS: HEMATOCRIT 35.4 % (32.4-45.2); MCH 28.6 pg (25.7-33.7); MCHC 33.8 g/dl (32.0-36.0); MEAN CELL VOLUME 84.4 fl (80-96); MEAN PLT VOLUME 7.9 fl (7.5-11.1); PLATELET COUNT 228 K/MM3 (134-434); RDW 14.7 % (11.6-15.6); WHITE BLOOD COUNT 5.2 K/mm3 (4.0-10.0)
[2017-07-24] MEDS: PRENATAL VITAMINS W/ FOLIC ACID TABLET (FP) PO SCH (10:19)
[2017-07-24] MEDS: NICOTINE 21 MG/24 HOURS TOPICAL PATCH TD SCH (10:20)
[2017-07-24] MEDS: cloNIDine HCL 0.1 MG TABLET PO SCH ×2 (10:30→22:11)
--- NOTE | 2017-07-24 10:35 | PN ---
[facility] CIWA - CIWA Score Nausea/Vomitin Muscle Tremors: 3 Anxiety: 2 Agitation: 2 Paroxysmal Sweats: 1-Minimal Palms Moist Orientation: 0-Oriented Tacttile Disturbances: 1-Very Mild Itch/Numbness Auditory Disturbances: 1-Very Mild Visual Disturbances: 0-None Headache: 2-Mild CIWA-Ar Total Score: 15 BHS COWS - Scale Resting Pulse: 1= [place] 81-100 Sweatin= Chills/Flushing Restless Observation: 3= Extraneous Movement Pupil Size: 1= Pupils >than Normal Bone or Joint Aches: 2= Severe Diffuse Aches Runny Nose/ Eye Tearin= Runny Nose/Eyes GI Upset > 30mins: 2= Nausea/Diarrhea Tremor Observation of Outstretched Hands: 2= Slight Tremor Visible Yawning Observation: 1= 1-2x During Session Anxiety or Irritability: 2=Irritable/Anxious Goose Flesh Skin: 0=Smooth Skin COWS Score: 17 S Progress Note (SOAP) Subjective: ALERT,IRRITABLE,ANXIOUS,INTERRUPTED SLEEP,TREMOR,PAIN IN THE BODY AND BACK Objective: 07/24/17 10:33 Vital Signs Temperature 97.3 F L 07/24/17 10:27 Pulse Rate 88 07/24/17 10:27 Respiratory Rate 18 07/24/17 10:27 Blood Pressure 104/59 07/24/17 10:27 O2 Sat by Pulse Oximetry (%) EKG NSR,NORMAL ECG QT IS 352/421 NO CHEST PAIN,NO SOB,NO DIZZINESS Laboratory Last Values WBC 5.2 K/mm3 (4.0-10.0) D 07/24/17 07:00 RBC 4.20 M/mm3 (3.60-5.2) 07/24/17 07:00 Hgb 12.0 GM/dL (10.7-15.3) 07/24/17 07:00 Hct 35.4 % (32.4-45.2) 07/24/17 07:00 MCV 84.4 fl (80-96) 07/24/17 07:00 MCH 28.6 pg (25.7-33.7) 07/24/17 07:00 MCHC 33.8 g/dl (32.0-36.0) 07/24/17 07:00 RDW 14.7 % (11.6-15.6) 07/24/17 07:00 Plt Count 228 K/MM3 (134-434) 07/24/17 07:00 MPV 7.9 fl (7.5-11.1) 07/24/17 07:00 Urine Color Yellow 07/23/17 23:00 Urine Appearance Cloudy 07/23/17 23:00 Urine pH 6.0 (5.0-8.0) 07/23/17 23:00 Ur Specific [place] 1.033 (1.001-1.035) 07/23/17 23:00 Urine Protein Negative (NEGATIVE) 07/23/17 23:00 Urine Glucose (UA) Negative (NEGATIVE) 07/23/17 23:00 Urine Ketones Negative (NEGATIVE) 07/23/17 23:00 Urine Blood Negative (NEGATIVE) 07/23/17 23:00 Urine Nitrite Negative (NEGATIVE) 07/23/17 23:00 Urine Bilirubin Negative (<2.0 mg/dL) 07/23/17 23:00 Urine Urobilinogen 2.0 mg/dL (0.2-1.0) H 07/23/17 23:00 Ur Leukocyte Esterase Negative (NEGATIVE) 07/23/17 23:00 LABS PENDING Assessment: 07/24/17 10:35 WITHDRAWAL SYMPTOM Plan: CONTINUE DETOX
[2017-07-24 11:06] LABS: CHLORIDE 108 mmol/L (98-107); POTASSIUM 3.8 mmol/L (3.5-5.1); SODIUM 143 mmol/L (136-145)
[2017-07-24 11:18] LABS: ALBUMIN 3.3 g/dl (3.4-5.0); ALK PHOS 82 U/L (45-117); ANION GAP 11 (8-16); BILIRUBIN,TOTAL 0.4 mg/dL (0.2-1.0); BLOOD UREA NITROGEN 16 mg/dL (7-18); CALCIUM 8.7 mg/dL (8.5-10.1); CO2 24 mmol/L (21-32); CREATININE 0.9 mg/dL (0.55-1.02); GLUCOSE,RANDOM 77 mg/dL (74-106); SGOT/AST 12 U/L (15-37); SGPT/ALT 13 U/L (12-78); TOT PROT 6.5 g/dl (6.4-8.2)
[2017-07-24] MEDS: chlordiazePOXIDE HCL 25 MG CAPSULE PO PRN (20:15)
[2017-07-24] MEDS ORDERED: QUEtiapine FUMARATE 100 MG TABLET (FP) PO SCH (22:00)
[2017-07-24] MEDS: THIAMINE HCL 100 MG TABLET (FP) PO SCH (22:10)
[2017-07-25] MEDS: chlordiazePOXIDE HCL 25 MG CAPSULE PO SCH ×3 (05:52→16:44)
[2017-07-25] MEDS ORDERED: QUEtiapine FUMARATE 50 MG TABLET PO SCH ×3 (08:45→22:00)
--- NOTE | 2017-07-25 09:30 | PN ---
S CIWA - CIWA Score Nausea/Vomitin Muscle Tremors: 3 Anxiety: 2 Agitation: 2 Paroxysmal Sweats: 1-Minimal Palms Moist Orientation: 0-Oriented Tacttile Disturbances: 1-Very Mild Itch/Numbness Auditory Disturbances: 1-Very Mild Visual Disturbances: 0-None Headache: 2-Mild CIWA-Ar Total Score: 15 BHS COWS - Scale Resting Pulse: 1= [place] 81-100 Sweatin= Chills/Flushing Restless Observation: 3= Extraneous Movement Pupil Size: 1= Pupils >than Normal Bone or Joint Aches: 2= Severe Diffuse Aches Runny Nose/ Eye Tearin= Nasal Congestion GI Upset > 30mins: 2= Nausea/Diarrhea Tremor Observation of Outstretched Hands: 2= Slight Tremor Visible Yawning Observation: 1= 1-2x During Session Anxiety or Irritability: 2=Irritable/Anxious Goose Flesh Skin: 0=Smooth Skin COWS Score: 16 BHS Progress Note (SOAP) Subjective: ALERT,IRRITABLE,ANXIOUS,INTERRUPTED SLEEP,TREMOR,PAIN IN THE BODY AND BACK Objective: 07/25/17 09:29 Vital Signs Temperature 98.1 F 07/25/17 09:18 Pulse Rate 91 H 07/25/17 09:18 Respiratory Rate 20 07/25/17 09:18 Blood Pressure 118/65 07/25/17 09:18 O2 Sat by Pulse Oximetry (%) Laboratory Last Values WBC 5.2 K/mm3 (4.0-10.0) D 07/24/17 07:00 RBC 4.20 M/mm3 (3.60-5.2) 07/24/17 07:00 Hgb 12.0 GM/dL (10.7-15.3) 07/24/17 07:00 Hct 35.4 % (32.4-45.2) 07/24/17 07:00 MCV 84.4 fl (80-96) 07/24/17 07:00 MCH 28.6 pg (25.7-33.7) 07/24/17 07:00 MCHC 33.8 g/dl (32.0-36.0) 07/24/17 07:00 RDW 14.7 % (11.6-15.6) 07/24/17 07:00 Plt Count 228 K/MM3 (134-434) 07/24/17 07:00 MPV 7.9 fl (7.5-11.1) 07/24/17 07:00 Sodium 143 mmol/L (136-145) 07/24/17 07:00 Potassium 3.8 mmol/L (3.5-5.1) 07/24/17 07:00 Chloride 108 mmol/L (98-107) H 07/24/17 07:00 Carbon Dioxide 24 mmol/L (21-32) 07/24/17 07:00 Anion Gap 11 (8-16) 07/24/17 07:00 BUN 16 mg/dL (7-18) 07/24/17 07:00 Creatinine 0.9 mg/dL (0.55-1.02) 07/24/17 07:00 Creat Clearance w eGFR > 60 (>60) 07/24/17 07:00 Random Glucose 77 mg/dL (74-106) 07/24/17 07:00 Calcium 8.7 mg/dL (8.5-10.1) 07/24/17 07:00 Total Bilirubin 0.4 mg/dL (0.2-1.0) D 07/24/17 07:00 AST 12 U/L (15-37) L 07/24/17 07:00 ALT 13 U/L (12-78) 07/24/17 07:00 Alkaline Phosphatase 82 U/L (45-117) 07/24/17 07:00 Total Protein 6.5 g/dl (6.4-8.2) 07/24/17 07:00 Albumin 3.3 g/dl (3.4-5.0) L 07/24/17 07:00 Urine Color Yellow 07/23/17 23:00 Urine Appearance Cloudy 07/23/17 23:00 Urine pH 6.0 (5.0-8.0) 07/23/17 23:00 Ur Specific [place] 1.033 (1.001-1.035) 07/23/17 23:00 Urine Protein Negative (NEGATIVE) 07/23/17 23:00 Urine Glucose (UA) Negative (NEGATIVE) 07/23/17 23:00 Urine Ketones Negative (NEGATIVE) 07/23/17 23:00 Urine Blood Negative (NEGATIVE) 07/23/17 23:00 Urine Nitrite Negative (NEGATIVE) 07/23/17 23:00 Urine Bilirubin Negative (<2.0 mg/dL) 07/23/17 23:00 Urine Urobilinogen 2.0 mg/dL (0.2-1.0) H 07/23/17 23:00 Ur Leukocyte Esterase Negative (NEGATIVE) 07/23/17 23:00 07/25/17 09:30 RPR PENDING Assessment: 07/25/17 09:30 WITHDRAWAL SYMPTOM Plan: CONTINUE DETOX,
--- NOTE | 2017-07-25 09:50 | EKG ---
Test Reason : Blood Pressure : / mmHG Vent. Rate : 086 BPM Atrial Rate : 086 BPM P-R Int : 130 ms QRS Dur : 080 ms QT Int : 352 ms P-R-T Axes : 057 075 050 degrees QTc Int : 421 ms NORMAL SINUS RHYTHM NORMAL ECG WHEN COMPARED WITH ECG OF 19-JUN-2017 12:56, NO SIGNIFICANT CHANGE WAS FOUND Confirmed by EVIE RODRIGUEZ MD ([id number]) on 07/25/2017 9:49:47 AM Referred By: Confirmed By:EVIE RODRIGUEZ MD
[2017-07-25] MEDS ORDERED: QUEtiapine FUMARATE 100 MG TABLET (FP) PO SCH (10:00)
[2017-07-25] MEDS: METHADONE HCL 5 MG TABLET (FOR DETOX USE ONLY) PO SCH (10:20)
[2017-07-25] MEDS: cloNIDine HCL 0.1 MG TABLET PO SCH ×2 (10:20→22:02)
[2017-07-25] MEDS: PRENATAL VITAMINS W/ FOLIC ACID TABLET (FP) PO SCH (10:23)
[2017-07-25] MEDS: NICOTINE 21 MG/24 HOURS TOPICAL PATCH TD SCH (10:23)
--- NOTE | 2017-07-25 11:19 | PN ---
[facility] Progress Note Note: Psychiatric nurse practitioner note: Patient approached movie writer and requested her medications be increased due to auditory hallucinations. Pt. denies command auditory hallucinations. Pt. states " the voices just talk". Patient denies suicidal and homicidal ideation. Pt. with a h/o schizophrenia and has been prescribed seroquel 200mg BID in the past. Pt. with a h/o nonadherence to medications and outpatient care. Seroquel increased to 150mg BID. Patient in agreement with plan. Will continue to monitor.
[2017-07-25] MEDS: THIAMINE HCL 100 MG TABLET (FP) PO SCH (22:02)
[2017-07-25] MEDS: chlordiazePOXIDE 5 MG CAPSULE PO SCH (22:03)
[2017-07-26] MEDS: chlordiazePOXIDE HCL 25 MG CAPSULE PO PRN ×2 (04:02→15:09)
[2017-07-26] MEDS: chlordiazePOXIDE 5 MG CAPSULE PO SCH ×3 (05:52→17:13)
[2017-07-26] MEDS ORDERED: COLLOIDAL OATMEAL 1 BAR EACH TP PRN (09:14)
--- NOTE | 2017-07-26 09:54 | PN ---
S Progress Note (SOAP) Subjective: ALERT,IRRITABLE,ANXIOUS,INTERRUPTED SLEEP,SENSITIVE SKIN Objective: 07/26/17 09:50 Vital Signs Temperature 98.1 F 07/26/17 09:23 Pulse Rate 85 07/26/17 09:23 Respiratory Rate 20 07/26/17 09:23 Blood Pressure 111/67 07/26/17 09:23 O2 Sat by Pulse Oximetry (%) 07/26/17 09:51 WITHDRAWAL SYMPTOM Assessment: 07/26/17 09:51 WITHDRAWAL SYMPTOM Plan: CONTINUE DETOX,AVEENO SOAP,HYDROCORTISONE OINTMENT BID RASH OF RIGHT FACE, PSYCHIATRIC EVALUATION VERY IRRITABLE AND ANXIOUS
[2017-07-26] MEDS ORDERED: QUEtiapine FUMARATE 200 MG TABLET PO SCH ×2 (10:00→22:00)
[2017-07-26] MEDS ORDERED: HYDROCORTISONE 1% TOPICAL OINT 30 GM TUBE TP SCH (10:00)
[2017-07-26] MEDS: METHADONE HCL 5 MG TABLET (FOR DETOX USE ONLY) PO SCH (10:07)
[2017-07-26] MEDS: NICOTINE 21 MG/24 HOURS TOPICAL PATCH TD SCH (10:09)
[2017-07-26] MEDS: PRENATAL VITAMINS W/ FOLIC ACID TABLET (FP) PO SCH (10:09)
[2017-07-26] MEDS: cloNIDine HCL 0.1 MG TABLET PO SCH (10:09)
--- NOTE | 2017-07-26 17:10 | PN ---
Psychiatric Progress Note Vital Signs: Vital Signs Period Temp Pulse Resp BP Sys/Archuleta Pulse Ox Last 24 Hr 96 F-98.1 F 66-86 16-20 95-132/53-68 Date of Session: 07/26/17 Chief Complaint:: As per nursing staff patient was irritable and agitated earlier. HPI: Patient admitted to for opiate, benzodiazepines, and cocaine dependence. ROS: Unremarkable. Current Medications: Active Medications Generic Name Dose Route Start Last Admin Trade Name Freq PRN Reason Stop Dose Admin Acetaminophen 650 mg 07/23/17 18:48 Tylenol - PO Q4H PRN FEVER Al Hydroxide/Mg Hydroxide 30 ml 07/23/17 18:48 Mylanta Oral Suspension - PO Q6H PRN DYSPEPSIA Albuterol Sulfate 1 amp 07/23/17 18:53 Ventolin 0.083% Nebulizer Soln - NEB Q6H PRN SHORT OF BREATH/WHEEZING Albuterol Sulfate 2 puff 07/23/17 18:52 Ventolin Hfa Inhaler - IH Q4H PRN ASTHMA Chlordiazepoxide HCl 10 mg 07/26/17 23:00 Librium - PO 07/27/17 17:01 [id number] ADOLFO Chlordiazepoxide HCl 25 mg 07/23/17 18:48 07/26/17 15:09 Librium - PO 07/26/17 18:49 25 mg Q4H PRN Administration WITHDRAWAL(CONT SUBST) Clonidine 0.1 mg 07/24/17 10:00 07/26/17 10:09 Catapres - PO 0.1 mg BID ADOLFO Administration Colloidal Oatmeal 1 applic 07/26/17 09:14 07/26/17 10:06 Aveeno Soap - TP 1 applic DAILY PRN Administration HYGEINE Cyclobenzaprine HCl 10 mg 07/24/17 09:47 07/25/17 13:47 Flexeril - PO 10 mg TID PRN Administration MUSCLE SPASMS Eucalyptus/Menthol/Phenol/Sorbitol 1 each 07/23/17 18:48 Cepastat Lozenge - MM Q4H PRN SORE THROAT Guaifenesin 10 ml 07/23/17 18:48 Robitussin Dm - PO Q6H PRN COUGH Hydrocortisone 1 applic 07/26/17 10:00 07/26/17 10:10 Hytone 1% Ointment - TP Not Given BID [facility] Hydroxyzine Pamoate 50 mg 07/23/17 18:48 07/25/17 08:49 Vistaril - PO 50 mg Q4H PRN Administration AGITATION Ibuprofen 400 mg 07/23/17 18:48 Motrin - PO Q6H PRN PAIN LEVEL 4-6 Loperamide HCl 4 mg 07/23/17 18:48 Imodium - PO Q6H PRN DIARRHEA Magnesium Citrate 300 ml 07/23/17 18:48 Citroma - PO Q48H PRN CONSTIPATION Magnesium Hydroxide 30 ml 07/23/17 18:48 Milk Of Magnesia - PO DAILY PRN CONSTIPATION Melatonin 5 mg 07/23/17 22:00 Melatonin PO HS PRN INSOMNIA Methadone HCl 5 mg 07/28/17 06:00 Dolophine - PO 07/28/17 06:01 DAILY@0600 ADOLFO Methadone HCl 10 mg 07/27/17 10:00 Dolophine - PO 07/27/17 10:01 DAILY [facility] Nicotine 21 mg 07/24/17 10:00 07/26/17 10:09 Nicoderm Patch - TD Not Given DAILY [facility] Nicotine Polacrilex 2 mg 07/23/17 18:48 Nicorette Gum - BC Q2H PRN NICOTINE REPLACEMENT RX Multivit/Folic Acid/Iron 1 tab 07/24/17 10:00 07/26/17 10:09 Vitamins (Sjr) - PO 1 tab DAILY [facility] Administration Pseudoephedrine/Triprolidine 1 combo 07/23/17 18:48 Actifed - PO TID PRN NASAL CONGESTION Quetiapine Fumarate 150 mg 07/25/17 22:00 07/25/17 22:02 Seroquel - PO 150 mg HS ADOLFO Administration Quetiapine Fumarate 200 mg 07/26/17 10:00 07/26/17 10:09 Seroquel - PO 200 mg DAILY ADOLFO Administration Thiamine HCl 100 mg 07/23/17 22:00 07/25/17 22:02 Vitamin B1 - PO 100 mg HS ADOLFO Administration Medication(s) Change(s): Will increase seroquel to 200mg BID Current Side Effect: No Lab tests ordered: No Lab tests reviewed: Yes Provider note:: Leasing Representative met with patient concerning psychiatric reconsultation. As per nursing staff patient was irritable and agitated this morning. Pt. making nonsensical(stating she was and wanted to get the baby out her body) statements and was difficult to redirect. Leasing Representative asked patient about the statment she had said about being , patient reponded, " i don't remember. sorry." Patient's seroquel was titrated this morning to 200mg BID. Patient able to tolerate the increase in seroquel. Pt. agreeable with increase. Verbal consent given. Total face to face time:: 25 Mental Status Exam - Mental Status Exam Alert and Oriented to: Time, Place, Person Cognitive Function: Good Patient Appearance: Well Groomed Mood: Withdrawn, Euthymic Affect: Mood Congruent Patient Behavior: Guarded, Cooperative Speech Pattern: Delayed Voice Loudness: Normal Thought Process: Thought Blocking Hallucinations: Auditory Suicidal Ideation: Denies Homicidal Ideation: Denies Insight/Judgement: Poor Sleep: Fair Appetite: Fair Muscle strength/Tone: Normal Gait/Station: Normal Psychiatric Treatment Plan - Problem List (1) Alcohol dependence with uncomplicated withdrawal Current Visit: Yes (2) Opioid dependence with withdrawal Current Visit: Yes (3) Benzodiazepine withdrawal without complication Current Visit: Yes Comment: SOFTWARE DEVELOPER MID LEVEL indicates alprazolam 0.5 mg PO Tabs. Last dispensed 10 tabs on 06/25/17. (4) Drug-induced mood disorder Current Visit: Yes (5) Schizoaffective disorder Current Visit: Yes Comment: Pt. self reports. Pt is nonadherent to outpatient treatment and medications. (6) Nicotine dependence Current Visit: Yes Qualifiers: Nicotine product type: cigarettes Substance use status: uncomplicated Qualified Code(s): F17.210 - Nicotine dependence, cigarettes, uncomplicated
[2017-07-26 17:47] VITALS: BP 108/64; PULSE 79; TEMP 97.2
--- NOTE | 2017-07-26 20:44 | PN ---
S Progress Note Note: Patient left AMA, did not wait for provider to evaluate her.
--- NOTE | 2017-07-26 20:50 | DS ---
[facility] Detox Discharge Summary Admission Date: 07/23/17 Discharge Date: 07/26/17 - History Additional Comments: Patient in no apparent distress. Patient left AMA. Refuse to wait to be further assessed. Patient verbalized understands the risk of not completing treatment. Patient to seek medical care at local ER , PCP or urgent care if symptoms worsen. - Physical Exam Results Vital Signs: Vital Signs Temperature 97.2 F L 07/26/17 17:46 Pulse Rate 79 07/26/17 17:46 Respiratory Rate 19 07/26/17 17:46 Blood Pressure 108/64 07/26/17 17:46 O2 Sat by Pulse Oximetry (%) - Medication Discharge Medications: Ambulatory Orders Albuterol Sulfate Inhaler - [Ventolin HFA Inhaler -] 2 puff IH Q4H PRN #1 inhaler 06/23/17 - Diagnosis (1) Alcohol dependence with uncomplicated withdrawal Current Visit: Yes Status: Acute (2) Asthma Current Visit: Yes Status: Acute Qualifiers: Asthma severity: mild Asthma complication type: unspecified (3) Opioid dependence with withdrawal Current Visit: Yes Status: Acute (4) Benzodiazepine withdrawal without complication Current Visit: Yes Status: Chronic (5) Nicotine dependence Current Visit: Yes Status: Chronic Qualifiers: Nicotine product type: cigarettes Substance use status: uncomplicated Qualified Code(s): F17.210 - Nicotine dependence, cigarettes, uncomplicated (6) Dehydration Current Visit: Yes Status: Acute - AMA Did Patient Leave Against Medical Advice: Yes
[2017-07-26] MEDS ORDERED: chlordiazePOXIDE HCL 10 MG CAPSULE PO SCH (23:00)
[2017-07-27] MEDS ORDERED: METHADONE HCL 10 MG TABLET (FOR DETOX USE ONLY) PO SCH (10:00)
[2017-07-28] MEDS ORDERED: METHADONE HCL 5 MG TABLET (FOR DETOX USE ONLY) PO SCH (06:00)
== END 2017-07-26 20:30 | disposition left against medical advice (07) | DRG 770 ==
LOC: YASAS 12:23 → Y6N 17:43
PROVIDERS: ADMIT Internal Medicine; ATTEND Internal Medicine
PROC: HZ2ZZZZ Detoxification Services for Substance Abuse Treatment (ICD-10-PCS; principal; 2017-07-23)
DX: F11.23 Opioid dependence with withdrawal (principal); F13.230 Sedative, hypnotic or anxiolytic dependence with withdrawal, uncomplicated; F10.230 Alcohol dependence with withdrawal, uncomplicated; F17.210 Nicotine dependence, cigarettes, uncomplicated; F19.24 Other psychoactive substance dependence with psychoactive substance-induced mood disorder; F25.9 Schizoaffective disorder, unspecified; F32.9 Major depressive disorder, single episode, unspecified; J45.909 Unspecified asthma, uncomplicated; E86.0 Dehydration
CPT/HCPCS: 36415; 80053; 81003; 85027; 86593; 93005; 93010; J0735

== ENCOUNTER 2017-08-23 14:39 | Inpatient (IN) | payer OTHER ==
[2017-08-23 18:12] VITALS: BMI 19.7
--- NOTE | 2017-08-23 21:15 | HP ---
COWS - Scale Resting Pulse: 0= HI 80 or Below Sweatin=Flushed/Facial Moisture Restless Observation: 1= Difficult to Sit Still Pupil Size: 1= Pupils >than Normal Bone or Joint Aches: 4=Acute Joint/Muscle Pain Runny Nose/ Eye Tearin= Nasal Congestion GI Upset > 30mins: 3= Vomiting/Diarrhea Tremor Observation: 2= Slight Tremor Visible Yawning Observation: 0= None Anxiety or Irritability: 2=Irritable/Anxious Goose Flesh Skin: 0=Smooth Skin COWS Score: 16 CIWA Score - CIWA Score Nausea/Vomitin Muscle Tremors: 4-Moderate,w/Arms Extend Anxiety: 4-Mod. Anxious/Guarded Agitation: 4-Moderately Restless Paroxysmal Sweats: 3 Orientation: 3-Disoriented Date>2 days Tacttile Disturbances: 2-Mild Itch/Numbness/Burn Auditory Disturbances: 0-None Visual Disturbances: 0-None Headache: 3-Moderate CIWA-Ar Total Score: 25 Admission ROS S - HPI Chief Complaint: C/O WITHDRAWAL SX'S. SEEKING DETOX Allergies/Adverse Reactions: Allergies Allergy/AdvReac Type Severity Reaction Status Date / Time buprenorphine [From Suboxone] Allergy Severe Vomiting Verified 08/23/17 19:29 Fish Containing Products Allergy Severe Hives Verified 08/23/17 19:29 naloxone [From Suboxone] Allergy Severe Vomiting Verified 08/23/17 19:29 venom-honey bee Allergy Severe Swelling Verified 08/23/17 19:29 [bee venom (honey bee)] No Known Drug Allergies Allergy Verified 08/23/17 19:29 History of Present Illness: 41 Y.O. FEMALE WITH LONG HX/O OF POLYSUBSTANCE ABUSE HERE FOR DETOX. CLIENT IS SELF REFERRED. SHE IS SEEKING REHAB SERVICES AFTER COMPLETING DETOX. CLIENT IS KNOWN TO THIS PROGRAM. SHE SIGNED OUT LAST ADMISSION. D/W CLIENT ABOUT NO COMPLETING TXMENT. SHE VERBALIZES THAT SHE IS READY AND HAS ALL INTENTIONS OF COMPLETING. DENIES HX/O OD, BLACK OUTS, SEIZURE, SI, HI.REPORTS LONGEST CLEAN TIME 10 YEARS. PMHX: DENIES PSYCHZ; DEPRESSION Exam Limitations: No Limitations - Ebola screening Have you traveled outside of the country in the last 21 days: No Have you had contact with anyone from an Ebola affected area: No Have you been sick,other than usual withdrawal symptoms: No Do you have a fever: No - Review of Systems Constitutional: Chills, Loss of Appetite, Malaise, Night Sweats, Changes in sleep, Unintentional Wgt. Loss EENT: reports: No Symptoms Reported Respiratory: reports: No Symptoms reported Cardiac: reports: No Symptoms Reported GI: reports: Diarrhea, Nausea, Poor Appetite, Vomiting : reports: No Symptoms Reported Musculoskeletal: reports: Back Pain, Joint Pain Integumentary: reports: Other (ABRASION TO LEFT KNEE) Neuro: reports: No Symptoms reported Endocrine: reports: No Symptoms Reported Hematology: reports: No Symptoms Reported Psychiatric: reports: Depressed Other Systems: Reviewed and Negative Patient History - Patient Medical History Hx Anemia: No Hx Asthma: No Hx Chronic Obstructive Pulmonary Disease (COPD): No Hx Cancer: No Hx Cardiac Disorders: No Hx Congestive Heart Failure: No Hx Hypertension: No Hx Hypercholesterolemia: No Hx Pacemaker: No HX Cerebrovascular Accident: No Hx Seizures: No Hx Dementia: No Hx Diabetes: No Hx Gastrointestinal Disorders: No Hx Liver Disease: No Hx Genitourinary Disorders: No Hx Sexually Transmitted Disorders: No Hx Renal Disease (ESRD): No Hx Thyroid Disease: No Hx Human Immunodeficiency Virus (HIV): No Hx Hepatitis C: No Hx Depression: Yes Hx Suicide Attempt: No Hx Bipolar Disorder: Yes Hx Schizophrenia: No Other Medical History: DENIES - Patient Surgical History Past Surgical History: No Hx Neurologic Surgery: No Hx Cataract Extraction: No Hx Cardiac Surgery: No Hx Lung Surgery: No Hx Breast Surgery: No Hx Breast Biopsy: No Hx Abdominal Surgery: No Hx Appendectomy: No Hx Cholecystectomy: No Hx Genitourinary Surgery: No Hx Section: No Hx Orthopedic Surgery: No Anesthesia Reaction: No - PPD History Previous Implant?: Yes Documented Results: Negative w/proof Implanted On Prior R Admission?: Yes Date: 03/15/17 Results: 0MM PPD to be Administered?: No - Reproductive History Patient is a Female of Child Bearing Age (11 -55 yrs old): Yes Last Menstrual Period: 07/23/17 Patient : No ([facility] [place]) - Smoking Cessation Smoking history: Current every day smoker Have you smoked in the past 12 months: Yes Aproximately how many cigarettes per day: 1 Cigars Per Day: 0 Hx Chewing Tobacco Use: No Initiated information on smoking cessation: Yes 'Breaking Loose' booklet given: 08/23/17 - Substance & Tx. History Hx Alcohol Use: Yes Hx Substance Use: Yes Substance Use Type: Alcohol, Cocaine, Heroin Hx Substance Use Treatment: Yes ([facility]) - Substances Abused Alcohol Route: Oral Frequency: Daily Amount used: LIQUOR- 1 PINT Age of first use: 16 Date of Last Use: 08/23/17 Heroin Route: Injection Frequency: Daily Amount used: 10 BAGS Age of first use: 16 Date of Last Use: 08/23/17 Alprazolam (Xanax) Route: Oral Frequency: Daily Amount used: 8MG Age of first use: 16 Date of Last Use: 08/23/17 Family Disease History - Family Disease History Family History: Denies Admission Physical Exam S - Vital Signs Vital Signs: Vital Signs - 24 hr 08/23/17 18:09 Temperature 97.1 F L Pulse Rate 66 Respiratory 18 Rate Blood Pressure 83/54 - Physical General Appearance: Yes: Appropriately Dressed, Mild Distress, Tremorous, Irritable, Anxious HEENTM: Yes: EOMI, Normocephalic, Normal Voice, OMID, Pharynx Normal, Other ( DRY MUCOUS MEMBRANES) Respiratory: Yes: Chest Non-Tender, Lungs Clear, No Respiratory Distress, No Accessory Muscle Use, Other (COARSE BREATH SOUNDS) Neck: Yes: No masses,lesions,Nodules, Supple, Trachea in good position Breast: Yes: Breast Exam Deferred Cardiology: Yes: Regular Rhythm, Regular Rate, S1, S2 Abdominal: Yes: Normal Bowel Sounds, Non Tender, Flat, Soft Genitourinary: Yes: Within Normal Limits Back: Yes: Normal Inspection Musculoskeletal: Yes: full range of Motion, Gait Steady Extremities: Yes: Normal Range of Motion, Non-Tender, Tremors Neurological: Yes: Alert, Motor Strength 5/5, Disoriented (TO DATE) Integumentary: Yes: Normal Color, Dry, Warm, Track Yip Lymphatic: Yes: Within Normal Limits - Diagnostic (1) Alcohol dependence with uncomplicated withdrawal Current Visit: Yes Status: Acute (2) Dehydration Current Visit: Yes Status: Acute (3) Drug-induced mood disorder Current Visit: Yes Status: Suspected (4) Opioid dependence with withdrawal Current Visit: Yes Status: Acute (5) Benzodiazepine withdrawal without complication Current Visit: Yes Status: Acute Comment: INTERNET MARKETING CONSULTANT indicates alprazolam 0.5 mg PO Tabs. Last dispensed 10 tabs on 06/25/17. (6) Nicotine dependence Current Visit: Yes Status: Chronic Qualifiers: Nicotine product type: cigarettes Substance use status: uncomplicated Qualified Code(s): F17.210 - Nicotine dependence, cigarettes, uncomplicated (7) Dry mucous membranes Current Visit: Yes Status: Acute Cleared for Admission [facility] - Detox or Rehab [facility] Level of Care: Medically Managed Detox Regimen/Protocol: Methadone/Valium Claeared for Rehab Admission: No S Breath Alcohol Content Breath Alcohol Content: 0 Urine Pregancy Test - Result Urine Test Results: Negative- NO Line Present Urine Drug Screen - Results Drug Screen Negative: No Urine Drug Screen Results: FLAKITO-Cocaine, OPI-Opiates, BZO-Benzodiazepines
[2017-08-23] MEDS ORDERED: diazePAM 5 MG TABLET PO ONE (21:20)
[2017-08-23] MEDS ORDERED: NICOTINE POLACRILEX 2 MG GUM BC PRN (21:20)
[2017-08-23] MEDS ORDERED: guaiFENesin/D-METHORPHAN HB 10 ML UNIT-DOSE CUPS PO PRN (21:20)
[2017-08-23] MEDS ORDERED: MAGNESIUM HYDROX 2400MG/30ML ORAL SUSPENSION 30 ML CUP PO PRN (21:20)
[2017-08-23] MEDS ORDERED: MENTHOL/PHENOL 1 EACH UD MM PRN (21:20)
[2017-08-23] MEDS ORDERED: METHADONE HCL 10 MG TABLET (FOR DETOX USE ONLY) PO ONE ×2 (21:20→23:00)
[2017-08-23] MEDS ORDERED: MAGNESIUM CITRATE 300 ML BOTTLE PO PRN (21:20)
[2017-08-23] MEDS ORDERED: ACETAMINOPHEN 325 MG TABLET (FP) PO PRN (21:20)
[2017-08-23] MEDS ORDERED: MAG HYDROX/AL HYDROX/SIMETH 30 ML UNIT-DOSE CUP PO PRN (21:20)
[2017-08-23] MEDS ORDERED: diazePAM 5 MG TABLET PO PRN (21:20)
[2017-08-23] MEDS ORDERED: IBUPROFEN 400 MG TABLET (FP) PO PRN (21:20)
[2017-08-23] MEDS ORDERED: P-EPHED 60MG/TRIPROLIDI 2.5MG TABLET PO PRN (21:20)
[2017-08-23] MEDS ORDERED: LOPERAMIDE HCL 2 MG CAPSULE PO PRN (21:20)
[2017-08-23] MEDS ORDERED: hydrOXYzine PAMOATE 50 MG CAPSULE (FP) PO PRN (21:20)
[2017-08-23] MEDS ORDERED: MELATONIN 5 MG TABLETS PO PRN (22:00)
[2017-08-23] MEDS: diazePAM 5 MG TABLET PO SCH (23:46)
[2017-08-23] MEDS: THIAMINE HCL 100 MG TABLET (FP) PO SCH (23:47)
[2017-08-24] MEDS: diazePAM 5 MG TABLET PO SCH ×3 (05:54→22:38)
--- NOTE | 2017-08-24 09:52 | CONSULT ---
[facility] Psychiatric Consult - Data Date of interview: 08/23/17 Admission source: [facility] Identifying data: Patient is a 41 year old single female, without kids, unemployed (receives food stamps), and stays with friend. This is one of multiple admissions for patient. Pt. admitted to for heroin dependence. Substance Abuse History: Smoking Cessation. Smoking history: Current every day smoker. Have you smoked in the past 12 months: Yes. Aproximately how many cigarettes per day: 1. Cigars Per Day: 0. Hx Chewing Tobacco Use: No. Initiated information on smoking cessation: Yes. 'Breaking Loose' booklet given : 08/23/17. - Substance & Tx. History. Hx Alcohol Use: Yes. Hx Substance Use : Yes. Substance Use Type: Alcohol, Cocaine, Heroin. Hx Substance Use Treatment: Yes ([facility]). - Substances Abused. Alcohol. Route: Oral. Frequency: Daily. Amount used: LIQUOR- 1 PINT. Age of first use: 16. Date of Last Use: 08/23/17. Heroin. Route: Injection. Frequency: Daily. Amount used: 10 BAGS. Age of first use: 16. Date of Last Use: 08/23/17. Alprazolam (Xanax). Route: Oral. Frequency: Daily. Amount used: 8MG. Age of first use: 16. Date of Last Use: 08/23/17 Medical History: Denies. Psychiatric History: Patient presents as odd, internally preoccupied, and laughing inappropriately but in control. Pt. reports multiple psychiatric hospitizations, most recently observed in psychiatric ER in March of 2017. Pt. is a poor historian. Pt. with a chronic history of nonadherence to medications and outpatient care. Pt. denies h/o suicide attempt. Pt. with multiple admissions to detox. Pt. with a history of schizophrenia. Pt. currently denies suicidal and homicidal ideation. Physical/Sexual Abuse/Trauma History: Denies. Mental Status Exam - Mental Status Exam Alert and Oriented to: Time, Place, Person Cognitive Function: Good Patient Appearance: Unkempt Mood: Euthymic Affect: Mood Congruent Patient Behavior: Cooperative Speech Pattern: Delayed Voice Loudness: Normal Thought Process: Thought Blocking Thought Disorder: Being Controlled Hallucinations: Auditory (Voices telling her to use the phone. Pt. denies command hallucinations.) Suicidal Ideation: Denies Homicidal Ideation: Denies Insight/Judgement: Poor Sleep: Fair Appetite: Fair Muscle strength/Tone: Normal Gait/Station: Normal Psychiatric Findings - Problem List ([place] 1, 2,3) (1) Schizophrenia Current Visit: Yes Status: Acute Comment: Schizophrenia suspected. (2) Alcohol dependence with uncomplicated withdrawal Current Visit: Yes Status: Acute (3) Benzodiazepine withdrawal without complication Current Visit: Yes Status: Acute Comment: STORAGE ENGINEER indicates alprazolam 0.5 mg PO Tabs. Last dispensed 10 tabs on 06/25/17. (4) Opioid dependence with withdrawal Current Visit: Yes Status: Acute (5) Nicotine dependence Current Visit: Yes Status: Chronic Qualifiers: Nicotine product type: cigarettes Substance use status: uncomplicated Qualified Code(s): F17.210 - Nicotine dependence, cigarettes, uncomplicated (6) Drug-induced mood disorder Current Visit: Yes Status: Acute - Initial Treatment Plan Initial Treatment Plan: Psychoeducation provided. Detoxification in progress. Due to patient's nonadherence to medication after discharge, patient will be restarted on Seroquel 100mg BID. Dose to be increased as tolerated. Benefits and side effects discussed. Verbal consent given. Will continue to monitor.
[2017-08-24] MEDS ORDERED: METHADONE HCL 10 MG TABLET (FOR DETOX USE ONLY) PO SCH (10:00)
[2017-08-24] MEDS ORDERED: PRENATAL VITAMINS W/ FOLIC ACID TABLET (FP) PO SCH (10:00)
--- NOTE | 2017-08-24 10:20 | EKG ---
Test Reason : Blood Pressure : / mmHG Vent. Rate : 056 BPM Atrial Rate : 056 BPM P-R Int : 148 ms QRS Dur : 074 ms QT Int : 420 ms P-R-T Axes : 035 074 048 degrees QTc Int : 405 ms SINUS BRADYCARDIA OTHERWISE NORMAL ECG WHEN COMPARED WITH ECG OF 23-JUL-2017 19:32, VENT. RATE HAS DECREASED BY 30 BPM Confirmed by KELSEY MOREJON MD ([id number]) on 08/24/2017 10:20:05 AM Referred By: Confirmed By:KELSEY MOREJON MD
[2017-08-24] MEDS: QUEtiapine FUMARATE 100 MG TABLET (FP) PO SCH ×2 (11:09→22:38)
[2017-08-24] MEDS ORDERED: diphenhydrAMINE HCL 50 MG CAPSULE PO ONE (11:15)
--- NOTE | 2017-08-24 11:20 | PN ---
Psychiatric Progress Note Vital Signs: Vital Signs Period Temp Pulse Resp BP Sys/Archuleta Pulse Ox Last 24 Hr 95.4 F-97.1 F 56-77 16-18 83-109/54-71 Date of Session: 08/24/17 Chief Complaint:: "I want to kill myself." HPI: Patient with a history of alcohol, cocaine, heroin and benzodiazepine dependence. ROS: Unremarkable. Current Medications: Active Medications Generic Name Dose Route Start Last Admin Trade Name Freq PRN Reason Stop Dose Admin Acetaminophen 650 mg 08/23/17 21:20 Tylenol - PO Q4H PRN FEVER Al Hydroxide/Mg Hydroxide 30 ml 08/23/17 21:20 Mylanta Oral Suspension - PO Q6H PRN DYSPEPSIA Diazepam 5 mg 08/23/17 22:00 08/24/17 05:54 Valium - PO 08/24/17 22:01 5 mg TID ADOLFO Administration Diazepam 5 mg 08/25/17 10:00 Valium - PO 08/26/17 22:01 BID ADOLFO Diazepam 5 mg 08/27/17 10:00 Valium - PO 08/27/17 10:01 DAILY ADOLFO Diazepam 10 mg 08/23/17 21:20 08/24/17 10:37 Valium - PO 08/26/17 21:21 10 mg Q4H PRN Administration WITHDRAWAL(CONT SUBST) Diphenhydramine HCl 50 mg 08/24/17 11:15 Benadryl - PO 08/24/17 11:16 ONCE ONE Eucalyptus/Menthol/Phenol/Sorbitol 1 each 08/23/17 21:20 Cepastat Lozenge - MM Q4H PRN SORE THROAT Guaifenesin 10 ml 08/23/17 21:20 Robitussin Dm - PO Q6H PRN COUGH Hydroxyzine Pamoate 50 mg 08/23/17 21:20 Vistaril - PO Q4H PRN AGITATION Ibuprofen 400 mg 08/23/17 21:20 Motrin - PO Q6H PRN PAIN LEVEL 4-6 Loperamide HCl 4 mg 08/23/17 21:20 Imodium - PO Q6H PRN DIARRHEA Magnesium Citrate 300 ml 08/23/17 21:20 Citroma - PO Q48H PRN CONSTIPATION Magnesium Hydroxide 30 ml 08/23/17 21:20 Milk Of Magnesia - PO DAILY PRN CONSTIPATION Melatonin 5 mg 08/23/17 22:00 Melatonin PO HS PRN INSOMNIA Methadone HCl 10 mg 08/27/17 10:00 Dolophine - PO 08/27/17 10:01 DAILY ADOLFO Methadone HCl 15 mg 08/25/17 10:00 Dolophine - PO 08/26/17 10:01 DAILY ADOLFO Methadone HCl 5 mg 08/28/17 06:00 Dolophine - PO 08/28/17 06:01 DAILY@0600 ADOLFO Nicotine Polacrilex 2 mg 08/23/17 21:20 Nicorette Gum - BC Q2H PRN NICOTINE REPLACEMENT RX Multivit/Folic Acid/Iron 1 tab 08/24/17 10:00 08/24/17 10:37 Vitamins (Sjr) - PO 1 tab DAILY ADOLFO Administration Pseudoephedrine/Triprolidine 1 combo 08/23/17 21:20 Actifed - PO TID PRN NASAL CONGESTION Quetiapine Fumarate 100 mg 08/24/17 10:00 Seroquel - PO BID ADOLFO Thiamine HCl 100 mg 08/23/17 22:00 08/23/17 23:47 Vitamin B1 - PO Not Given HS [facility] Medication(s) Change(s): Will order Benadryl 50mg one time dose. Current Side Effect: No Lab tests ordered: No Lab tests reviewed: Yes Provider note:: As per staff patient was reviewing her lunch menu in the hallway and was observed to impulsively throw her menu on the floor and yell " I know every one is watching me" followed by the statement, " Get me out of here. I want to kill myself." Pt. presents as internally preoccupied, paranoid , impulsive, unpredictable, and disorganized. When asked if she wanted to kill herself patient responded by stating, " I did not say that, someone else said it for me." When asked again, patient responded by stating, " No i do not want to kill myself. I was frustrated." Patient also believes everyone can hear what she is saying. Patient is thought blocking and exhibiting difficulty completing sentences. When asked questions, patient stares blankly at staff then hesitates to answer. At this time patient is agreeable to receiving psychotrophic medications. Seroquel 100mg BID ordered in addition to a one time dose of benadryl 50mg. Pt. with a history of nonadherence to medications. Patient to be placed on 1:1 for safety. Will continue to monitor. Total face to face time:: 35 Mental Status Exam - Mental Status Exam Alert and Oriented to: Time, Place, Person Cognitive Function: Fair Patient Appearance: Unkempt Mood: Withdrawn, Irritable Affect: Blunted Patient Behavior: Impulsive Speech Pattern: Delayed Voice Loudness: Normal Thought Process: Thought Blocking, Disorganized Thought Disorder: Paranoid Ideation Hallucinations: Auditory Suicidal Ideation: Denies (yelled she wanted to kill herself but denies suicidal ideation.) Homicidal Ideation: Denies Insight/Judgement: Poor Sleep: Fair Appetite: Fair Muscle strength/Tone: Normal Gait/Station: Normal Psychiatric Treatment Plan - Problem List (1) Schizophrenia Current Visit: Yes Comment: Nonadherent to medication and outpatient care. (2) Alcohol dependence with uncomplicated withdrawal Current Visit: Yes (3) Benzodiazepine withdrawal without complication Current Visit: Yes Comment: PRESS HAND SUPERVISOR indicates alprazolam 0.5 mg PO Tabs. Last dispensed 10 tabs on 06/25/17. (4) Opioid dependence with withdrawal Current Visit: Yes (5) Nicotine dependence Current Visit: Yes Qualifiers: Nicotine product type: cigarettes Substance use status: uncomplicated Qualified Code(s): F17.210 - Nicotine dependence, cigarettes, uncomplicated (6) Drug-induced mood disorder Current Visit: Yes
--- NOTE | 2017-08-24 12:45 | PN ---
BHS CIWA - CIWA Score Nausea/Vomitin-Mild Nausea/No Vomiting Muscle Tremors: 4-Moderate,w/Arms Extend Anxiety: 4-Mod. Anxious/Guarded Agitation: 4-Moderately Restless Paroxysmal Sweats: 1-Minimal Palms Moist Orientation: 0-Oriented Tacttile Disturbances: 2-Mild Itch/Numbness/Burn Auditory Disturbances: 0-None Visual Disturbances: 0-None Headache: 2-Mild CIWA-Ar Total Score: 18 BHS COWS - Scale Resting Pulse: 0= AK 80 or Below Sweatin= Chills/Flushing Restless Observation: 3= Extraneous Movement Pupil Size: 0= Normal to Room Light Bone or Joint Aches: 2= Severe Diffuse Aches Runny Nose/ Eye Tearin= Runny Nose/Eyes GI Upset > 30mins: 2= Nausea/Diarrhea Tremor Observation of Outstretched Hands: 2= Slight Tremor Visible Yawning Observation: 2= >3x During Session Anxiety or Irritability: 2=Irritable/Anxious Goose Flesh Skin: 0=Smooth Skin COWS Score: 16 BHS Progress Note (SOAP) Subjective: patient verbally expressed kill self and self harm threats psychiatric provider interaction with the patient and safe room arranged 1:1 close observation initiated Objective: 08/24/17 12:49 Vital Signs Temperature 96.0 F L 08/24/17 09:22 Pulse Rate 77 08/24/17 09:22 Respiratory Rate 16 08/24/17 09:22 Blood Pressure 97/68 08/24/17 09:22 O2 Sat by Pulse Oximetry (%) lab not available at this time Assessment: 08/24/17 12:50 withdrawal sx suicidal ideation Plan: continue detox 1:1 observation
--- NOTE | 2017-08-24 13:34 | PN ---
Psychiatric Progress Note Vital Signs: Vital Signs Period Temp Pulse Resp BP Sys/Archuleta Pulse Ox Last 24 Hr 95.4 F-97.1 F 56-77 16-18 83-109/54-71 Date of Session: 08/24/17 Chief Complaint:: " I have something in my butt." HPI: Patient admitted to for alcohol, opiate, cocaine, and benzodiazepine dependence. ROS: Unremarkable. Current Medications: Active Medications Generic Name Dose Route Start Last Admin Trade Name Freq PRN Reason Stop Dose Admin Acetaminophen 650 mg 08/23/17 21:20 Tylenol - PO Q4H PRN FEVER Al Hydroxide/Mg Hydroxide 30 ml 08/23/17 21:20 Mylanta Oral Suspension - PO Q6H PRN DYSPEPSIA Diazepam 5 mg 08/23/17 22:00 08/24/17 05:54 Valium - PO 08/24/17 22:01 5 mg TID ADOLFO Administration Diazepam 5 mg 08/25/17 10:00 Valium - PO 08/26/17 22:01 BID ADOLFO Diazepam 5 mg 08/27/17 10:00 Valium - PO 08/27/17 10:01 DAILY ADOLFO Diazepam 10 mg 08/23/17 21:20 08/24/17 10:37 Valium - PO 08/26/17 21:21 10 mg Q4H PRN Administration WITHDRAWAL(CONT SUBST) Eucalyptus/Menthol/Phenol/Sorbitol 1 each 08/23/17 21:20 Cepastat Lozenge - MM Q4H PRN SORE THROAT Guaifenesin 10 ml 08/23/17 21:20 Robitussin Dm - PO Q6H PRN COUGH Hydroxyzine Pamoate 50 mg 08/23/17 21:20 Vistaril - PO Q4H PRN AGITATION Ibuprofen 400 mg 08/23/17 21:20 Motrin - PO Q6H PRN PAIN LEVEL 4-6 Loperamide HCl 4 mg 08/23/17 21:20 Imodium - PO Q6H PRN DIARRHEA Magnesium Citrate 300 ml 08/23/17 21:20 Citroma - PO Q48H PRN CONSTIPATION Magnesium Hydroxide 30 ml 08/23/17 21:20 Milk Of Magnesia - PO DAILY PRN CONSTIPATION Melatonin 5 mg 08/23/17 22:00 Melatonin PO HS PRN INSOMNIA Methadone HCl 10 mg 08/27/17 10:00 Dolophine - PO 08/27/17 10:01 DAILY ADOLFO Methadone HCl 15 mg 08/25/17 10:00 Dolophine - PO 08/26/17 10:01 DAILY ADOLFO Methadone HCl 5 mg 08/28/17 06:00 Dolophine - PO 08/28/17 06:01 DAILY@0600 ADOLFO Nicotine Polacrilex 2 mg 08/23/17 21:20 Nicorette Gum - BC Q2H PRN NICOTINE REPLACEMENT RX Multivit/Folic Acid/Iron 1 tab 08/24/17 10:00 08/24/17 10:37 Vitamins (Sjr) - PO 1 tab DAILY ADOLFO Administration Pseudoephedrine/Triprolidine 1 combo 08/23/17 21:20 Actifed - PO TID PRN NASAL CONGESTION Quetiapine Fumarate 100 mg 08/24/17 10:00 08/24/17 11:09 Seroquel - PO 100 mg BID ADOLFO Administration Thiamine HCl 100 mg 08/23/17 22:00 08/23/17 23:47 Vitamin B1 - PO Not Given HS ADOLFO Current Side Effect: No Lab tests ordered: No Lab tests reviewed: Yes Provider note:: Patient exhibiting labile and unpredictable behavior. Pt. yelling profanity at staff and making nonsensical statements. Patient stated " there is something in my butt." Patient asked by psychiatrist to explain why she is on 1:1 and patient responded by stating, " what the fuck is that. i"ll take the bus home." Patient unable to give clear cohesive answers. Pt. difficult to redirect but eventually was able to deescalate with staff assistance. Patient remains bizzare and internally preoccupied. Patient to remain on 1:1 for safety and unpredictable behavior. Pending possible transfer to a psychiatric facility. Total face to face time:: 35 Mental Status Exam - Mental Status Exam Alert and Oriented to: Time, Place, Person Cognitive Function: Fair Patient Appearance: Unkempt Mood: Irritable Affect: Mood Congruent Patient Behavior: Uncooperative, Impulsive, Agitated Speech Pattern: Delayed Voice Loudness: Moderately Loud, Severely Loud Thought Process: Thought Blocking, Disorganized Thought Disorder: Paranoid Ideation, Bizarre Hallucinations: Auditory Suicidal Ideation: Denies Homicidal Ideation: Denies Insight/Judgement: Poor Sleep: Fair Appetite: Fair Muscle strength/Tone: Normal Gait/Station: Normal Psychiatric Treatment Plan - Problem List (1) Schizophrenia Current Visit: Yes Comment: Schizophrenia suspected. (2) Alcohol dependence with uncomplicated withdrawal Current Visit: Yes (3) Benzodiazepine withdrawal without complication Current Visit: Yes Comment: [employer] indicates alprazolam 0.5 mg PO Tabs. Last dispensed 10 tabs on 06/25/17. (4) Opioid dependence with withdrawal Current Visit: Yes (5) Nicotine dependence Current Visit: Yes Qualifiers: Nicotine product type: cigarettes Substance use status: uncomplicated Qualified Code(s): F17.210 - Nicotine dependence, cigarettes, uncomplicated (6) Drug-induced mood disorder Current Visit: Yes (7) Drug-induced psychotic disorder Current Visit: Yes Comment: suspected Initial treatment plan: Transfer to a psychiatric facility. (8) Unspecified psychosis Current Visit: Yes Comment: suspected Initial treatment plan: Transfer to a psychiatric facility.
[2017-08-24] MEDS ORDERED: HALOPERIDOL 5 MG TABLET (FP) PO ONE (13:45)
--- NOTE | 2017-08-24 13:56 | PN ---
[facility] Progress Note Note: Psychiatry Attending's note : Called to re-evaluate this patient for agitation and erratic behavior. Case presented by sr. merchandise planner Juan Pablo.Chart reviewed.History taken. 41 y/o female with schizophrenia, admitted to [address] [place] [address] for detoxification. Substances to be addressed : heroin,cocaine and alcohol.Patient is known to this facility. Ms Ashford is agitated,floridly paranoid,disorganized,loud and disruptive on the unit. Patient is grossly incoherent,intimidating and refractory to verbal redirections. Determined to leave the unit with the intent to kill herself " once outside ".Constant Observation. Patient is out of control and she cannot be managed on a detox unit at this time.Placed on 2 PC status. Situation has escalated into an emergency (danger to self + others).911 is called.[employer] Police responded. Patient will be taken to [facility] emergency department (psychiatric ) for appropriate management.
--- NOTE | 2017-08-24 14:01 | PN ---
[facility] Progress Note Note: Psychiatric nurse practitioner note: Pt. agitated, yelling, threatening to punch staff, not following redirection. Pt. remains labile, unpredictable, impulsive and internally preoccupied. Pt. threw coffee on the ground and yelled at staff " LET ME THE FUCK OUT." Pt. is a danger to self and others. Pt is not suitable for a detox setting. Pt. to be sent out 911. Pt. in need of immediate psychiatric treatment.
[2017-08-24 14:30] VITALS: BP 107/75; PULSE 72; TEMP 97.7
--- NOTE | 2017-08-24 15:42 | PN ---
[facility] Progress Note Note: 41 years old female presents psychotic episode, aggressive, paranoid, disorganized, and erratic behavior, evaluated by the psychiatrists and mental health specialist, transferred to [facility]
[2017-08-24] MEDS: THIAMINE HCL 100 MG TABLET (FP) PO SCH (22:38)
[2017-08-25] MEDS ORDERED: diazePAM 5 MG TABLET PO SCH (10:00)
[2017-08-25] MEDS ORDERED: METHADONE HCL 5 MG TABLET (FOR DETOX USE ONLY) PO SCH (10:00)
[2017-08-27] MEDS ORDERED: METHADONE HCL 10 MG TABLET (FOR DETOX USE ONLY) PO SCH (10:00)
[2017-08-27] MEDS ORDERED: diazePAM 5 MG TABLET PO SCH (10:00)
[2017-08-28] MEDS ORDERED: METHADONE HCL 5 MG TABLET (FOR DETOX USE ONLY) PO SCH (06:00)
== END 2017-08-24 14:30 | DRG 773 ==
LOC: YASAS 14:39 → Y6N 20:50
PROVIDERS: ADMIT Surgery; ATTEND Surgery
PROC: HZ2ZZZZ Detoxification Services for Substance Abuse Treatment (ICD-10-PCS; principal; 2017-08-23)
DX: F11.23 Opioid dependence with withdrawal (principal); F13.230 Sedative, hypnotic or anxiolytic dependence with withdrawal, uncomplicated; F10.230 Alcohol dependence with withdrawal, uncomplicated; F17.210 Nicotine dependence, cigarettes, uncomplicated; F20.9 Schizophrenia, unspecified; F19.24 Other psychoactive substance dependence with psychoactive substance-induced mood disorder; F19.259 Other psychoactive substance dependence with psychoactive substance-induced psychotic disorder, unspecified
CPT/HCPCS: 93005; 93010

== ENCOUNTER 2017-11-09 11:44 | Inpatient (IN) | payer OTHER ==
[2017-11-09 13:07] VITALS: BMI 19.5
--- NOTE | 2017-11-09 17:28 | HP ---
"COWS - Scale Resting Pulse: 1= OK 81-100 Sweatin= Chills/Flushing Restless Observation: 1= Difficult to Sit Still Pupil Size: 1= Pupils >than Normal (pupild 4 mm) Bone or Joint Aches: 2= Severe Diffuse Aches Runny Nose/ Eye Tearin= Nasal Congestion GI Upset > 30mins: 2= Nausea/Diarrhea Tremor Observation: 2= Slight Tremor Visible Yawning Observation: 0= None Anxiety or Irritability: 2=Irritable/Anxious Goose Flesh Skin: 0=Smooth Skin COWS Score: 13 Admission ROS [facility] Chief Complaint: Here because of alcohol and opiate withdrawal Allergies/Adverse Reactions: Allergies Allergy/AdvReac Type Severity Reaction Status Date / Time buprenorphine [From Suboxone] Allergy Severe Vomiting Verified 11/09/17 17:18 Fish Containing Products Allergy Severe Hives Verified 11/09/17 17:18 naloxone [From Suboxone] Allergy Severe Vomiting Verified 11/09/17 17:18 venom-honey bee Allergy Severe Swelling Verified 11/09/17 17:18 [bee venom (honey bee)] No Known Drug Allergies Allergy Verified 08/23/17 19:29 History of Present Illness: States here for heroin use disorder and cocaine use disorder which both began at age 16. States not really using alcohol at this time. Denies hx blackouts or seizures. Denies significant PMH/PSH. States has mental health issues and has been diagnosed w/ schizophrenia. Denies thoughts of harming self or others. States currently on Seroquel. Denies hx sobriety for longer than a few days. Search Terms: Precious Ashford, 1975 Search Date: 11/09/2017 05:27:46 PM The Drug Utilization Report below displays all of the controlled substance prescriptions, if any, that your patient has filled in the last twelve months. The information displayed on this report is compiled from pharmacy submissions to the Department, and accurately reflects the information as submitted by the pharmacies. This report was requested by: Denia Elena | Reference #: [id number] Patient Name: Precious Ashford Date: 1975 Address: [address] [place] [address] Sex: Female Rx Written Rx Dispensed Drug Quantity Days Supply Prescriber Name 09/07/2017 09/07/2017 chlordiazepoxide 25 mg capsule 26 5 StatonVinicius MD Patient Name: Precious Ashford Date: 1975 Address: [address] [place] [address] Sex: Female Rx Written Rx Dispensed Drug Quantity Days Supply Prescriber Name 06/25/2017 06/25/2017 alprazolam 0.5 mg tablet 10 10 Lenny Bartholomew MD Exam Limitations: No Limitations - Ebola screening Have you traveled outside of the country in the last 21 days: No Have you had contact with anyone from an Ebola affected area: No Have you been sick,other than usual withdrawal symptoms: No Do you have a fever: No - Review of Systems Constitutional: Chills, Diaphoresis, Loss of Appetite (Poor appettie) EENT: reports: Nose Congestion Respiratory: reports: No Symptoms reported, Other (Denies hx asthma) Cardiac: reports: No Symptoms Reported GI: reports: Poor Appetite, Indigestion (Occ acid reflux) : reports: No Symptoms Reported Musculoskeletal: reports: No Symptoms Reported Integumentary: reports: No Symptoms Reported Neuro: reports: Tremors (r/t withdrawal) Endocrine: reports: No Symptoms Reported Hematology: reports: No Symptoms Reported Psychiatric: reports: Orientated x3, Agitated, Anxious, Depressed (Hx schizophrenia. Denies thoughts of harming self or others. States takes seroquel and xanax,) Patient History - Patient Medical History Hx Anemia: No Hx Asthma: No Hx Chronic Obstructive Pulmonary Disease (COPD): No Hx Cancer: No Hx Cardiac Disorders: No Hx Congestive Heart Failure: No Hx Hypertension: No Hx Hypercholesterolemia: No Hx Pacemaker: No HX Cerebrovascular Accident: No Hx Seizures: No Hx Dementia: No Hx Diabetes: No Hx Gastrointestinal Disorders: No Hx Liver Disease: No Hx Genitourinary Disorders: No Hx Sexually Transmitted Disorders: No Hx Renal Disease (ESRD): No Hx Thyroid Disease: No Hx Human Immunodeficiency Virus (HIV): No Hx Hepatitis C: No Hx Depression: Yes Hx Suicide Attempt: No Hx Bipolar Disorder: Yes Hx Schizophrenia: No - Patient Surgical History Past Surgical History: No Hx Neurologic Surgery: No Hx Cataract Extraction: No Hx Cardiac Surgery: No Hx Lung Surgery: No Hx Breast Surgery: No Hx Breast Biopsy: No Hx Abdominal Surgery: No Hx Appendectomy: No Hx Cholecystectomy: No Hx Genitourinary Surgery: No Hx Section: No Hx Orthopedic Surgery: No Anesthesia Reaction: No - PPD History Date: 03/15/17 Results: 0MM PPD to be Administered?: No - Reproductive History Last Menstrual Period: 07/23/17 - Smoking Cessation Smoking history: Current every day smoker Have you smoked in the past 12 months: Yes Aproximately how many cigarettes per day: 1 Cigars Per Day: 0 Hx Chewing Tobacco Use: No Initiated information on smoking cessation: Yes 'Breaking Loose' booklet given: 11/09/17 - Substance & Tx. History Hx Alcohol Use: Yes Hx Substance Use: Yes Substance Use Type: Cocaine, Heroin Hx Substance Use Treatment: Yes ([facility]) - Substances Abused Heroin Route: Injection Frequency: Daily Amount used: 6 BAGS AND UP Age of first use: 16 Date of Last Use: 11/09/17 (10 am ) Cocaine Route: Injection Frequency: Daily Amount used: 1 bag Age of first use: 16 Date of Last Use: 11/09/17 Alcohol Frequency: 3-6 times per week Admission Physical Exam [facility] - Vital Signs Vital Signs: Vital Signs - 24 hr 11/09/17 13:02 Temperature 98.3 F Pulse Rate 96 H Respiratory 18 Rate Blood Pressure 102/64 - Physical General Appearance: Yes: Mild Distress, Tremorous, Irritable, Sweating, Anxious HEENTM: Yes: EOMI, Hearing grossly Normal, OMID (Pupils at 4 mm), Nasal Congestion, Other (Perforated nasal septum. Dry mucous membranes.) Respiratory: Yes: Chest Non-Tender, Lungs Clear, Normal Breath Sounds, No Respiratory Distress Neck: Yes: No masses,lesions,Nodules, Supple Breast: Yes: Breast Exam Deferred Cardiology: Yes: Regular Rhythm, Regular Rate, S1, S2 Abdominal: Yes: Non Tender, Flat, Soft, Increased Bowel Sounds Genitourinary: Yes: Within Normal Limits Back: Yes: Normal Inspection Musculoskeletal: Yes: full range of Motion, Gait Steady Extremities: Yes: Normal Capillary Refill, Normal Inspection, Normal Range of Motion, Non-Tender, Tremors (of hands) Neurological: Yes: gaming associate II-XII NML intact, Fully Oriented, Alert, Motor Strength 5/5 Integumentary: Yes: Normal Color, Dry (Decreased skin turgor.), Warm, Track Yip Lymphatic: Yes: Within Normal Limits - Diagnostic (1) Cocaine use disorder Current Visit: Yes Status: Chronic (2) Opioid dependence with withdrawal Current Visit: Yes Status: Acute (3) Perforated nasal septum Current Visit: No Status: Chronic (4) Dehydration Current Visit: Yes Status: Acute (5) Dry mucous membranes Current Visit: Yes Status: Acute Cleared for Admission [facility] - Detox or Rehab [facility] Level of Care: Medically Managed Detox Regimen/Protocol: Methadone [facility] Breath Alcohol Content Breath Alcohol Content: 0 Urine Pregancy Test - Result Urine Test Results: Negative- NO Line Present Urine Drug Screen - Results Drug Screen Negative: No Urine Drug Screen Results: FLAKITO-Cocaine, OPI-Opiates, TCA-Tricyclic Antidepress, OXY-Oxycodone"
[2017-11-09] MEDS ORDERED: MAGNESIUM HYDROX 2400MG/30ML ORAL SUSPENSION 30 ML CUP PO PRN (18:30)
[2017-11-09] MEDS ORDERED: IBUPROFEN 400 MG TABLET (FP) PO PRN (18:30)
[2017-11-09] MEDS ORDERED: ACETAMINOPHEN 325 MG TABLET (FP) PO PRN (18:30)
[2017-11-09] MEDS ORDERED: hydrOXYzine PAMOATE 25 MG CAPSULE (FP) PO PRN (18:30)
[2017-11-09] MEDS ORDERED: LOPERAMIDE HCL 2 MG CAPSULE PO PRN (18:30)
[2017-11-09] MEDS ORDERED: P-EPHED 60MG/TRIPROLIDI 2.5MG TABLET PO PRN (18:30)
[2017-11-09] MEDS ORDERED: MENTHOL/PHENOL 1 EACH UD MM PRN (18:30)
[2017-11-09] MEDS ORDERED: MAGNESIUM CITRATE 300 ML BOTTLE PO PRN (18:30)
[2017-11-09] MEDS ORDERED: MAG HYDROX/AL HYDROX/SIMETH 30 ML UNIT-DOSE CUP PO PRN (18:30)
[2017-11-09] MEDS ORDERED: guaiFENesin/D-METHORPHAN HB 10 ML UNIT-DOSE CUPS PO PRN (18:30)
[2017-11-09] MEDS ORDERED: METHADONE HCL 10 MG TABLET (FOR DETOX USE ONLY) PO ONE ×2 (19:00→23:00)
[2017-11-09] MEDS: diazePAM 5 MG TABLET PO PRN ×2 (19:30→23:17)
[2017-11-09 23:14] LABS: URINE APPEARANCE CLOUDY; URINE BILIRUBIN NEGATIVE (<2.0 mg/dL); URINE COLOR YELLOW; URINE GLUCOSE (UA) NEGATIVE (NEGATIVE); URINE KETONE NEGATIVE (NEGATIVE); URINE NITRITE NEGATIVE (NEGATIVE); URINE PROTEIN NEGATIVE (NEGATIVE); URINE UROBILINOGEN NEGATIVE mg/dL (0.2-1.0)
[2017-11-09 23:17] LABS: URINE LEUK ESTERASE 1+ (NEGATIVE)
[2017-11-09] MEDS: THIAMINE HCL 100 MG TABLET (FP) PO SCH (23:18)
[2017-11-09 23:19] LABS: EPI CELLS MANY /HPF (FEW); URINE BACTERIA MODERATE /hpf (NONE SEEN); URINE MUCUS RARE
[2017-11-09] MEDS: MELATONIN 5 MG TABLETS PO PRN (23:19)
[2017-11-10] MEDS ORDERED: METHADONE HCL 10 MG TABLET (FOR DETOX USE ONLY) PO ONE (10:00)
[2017-11-10] MEDS: diazePAM 5 MG TABLET PO PRN ×3 (10:25→20:06)
[2017-11-10 10:27] LABS: HEMATOCRIT 33.5 % (32.4-45.2); HEMOGLOBIN 11.6 GM/dL (10.7-15.3); MCH 28.7 pg (25.7-33.7); MCHC 34.6 g/dl (32.0-36.0); MEAN CELL VOLUME 82.9 fl (80-96); MEAN PLT VOLUME 7.5 fl (7.5-11.1); PLATELET COUNT 263 K/MM3 (134-434); RBC 4.04 M/mm3 (3.60-5.2); RDW 15.1 % (11.6-15.6); WHITE BLOOD COUNT 5.5 K/mm3 (4.0-10.0)
[2017-11-10] MEDS: PRENATAL VITAMINS W/ FOLIC ACID TABLET (FP) PO SCH (10:27)
[2017-11-10 11:17] LABS: CHLORIDE 103 mmol/L (98-107); POTASSIUM 3.8 mmol/L (3.5-5.1); SODIUM 138 mmol/L (136-145)
[2017-11-10 11:25] LABS: ALBUMIN 3.3 g/dl (3.4-5.0); ALK PHOS 74 U/L (45-117); ANION GAP 10 (8-16); BILIRUBIN,TOTAL 0.4 mg/dL (0.2-1.0); BLOOD UREA NITROGEN 10 mg/dL (7-18); CALCIUM 8.7 mg/dL (8.5-10.1); CO2 25 mmol/L (21-32); CREATININE 0.9 mg/dL (0.55-1.02); GLUCOSE,RANDOM 158 mg/dL (74-106); SGOT/AST 11 U/L (15-37); SGPT/ALT 14 U/L (12-78); TOT PROT 6.7 g/dl (6.4-8.2)
--- NOTE | 2017-11-10 11:35 | PN ---
BHS COWS - Scale Resting Pulse: 1= [place] 81-100 Sweatin= Chills/Flushing Restless Observation: 3= Extraneous Movement Pupil Size: 1= Pupils >than Normal Bone or Joint Aches: 2= Severe Diffuse Aches Runny Nose/ Eye Tearin= Runny Nose/Eyes GI Upset > 30mins: 2= Nausea/Diarrhea Tremor Observation of Outstretched Hands: 2= Slight Tremor Visible Yawning Observation: 1= 1-2x During Session Anxiety or Irritability: 2=Irritable/Anxious Goose Flesh Skin: 0=Smooth Skin COWS Score: 17 S Progress Note (SOAP) Subjective: alert,irritable,anxious,interrupted sleep,tremor,pain in the body and back Objective: 11/10/17 11:32 Vital Signs Temperature 98.1 F 11/10/17 09:44 Pulse Rate 88 11/10/17 09:44 Respiratory Rate 16 11/10/17 09:44 Blood Pressure 108/61 11/10/17 09:44 O2 Sat by Pulse Oximetry (%) ekg nsr,normal ecg qt/qtc 348/437 Laboratory Last Values WBC 5.5 K/mm3 (4.0-10.0) 11/10/17 08:00 RBC 4.04 M/mm3 (3.60-5.2) 11/10/17 08:00 Hgb 11.6 GM/dL (10.7-15.3) 11/10/17 08:00 Hct 33.5 % (32.4-45.2) 11/10/17 08:00 MCV 82.9 fl (80-96) 11/10/17 08:00 MCH 28.7 pg (25.7-33.7) 11/10/17 08:00 MCHC 34.6 g/dl (32.0-36.0) 11/10/17 08:00 RDW 15.1 % (11.6-15.6) 11/10/17 08:00 Plt Count 263 K/MM3 (134-434) 11/10/17 08:00 MPV 7.5 fl (7.5-11.1) 11/10/17 08:00 Sodium 138 mmol/L (136-145) 11/10/17 08:00 Potassium 3.8 mmol/L (3.5-5.1) 11/10/17 08:00 Chloride 103 mmol/L (98-107) 11/10/17 08:00 Carbon Dioxide 25 mmol/L (21-32) 11/10/17 08:00 Anion Gap 10 (8-16) 11/10/17 08:00 BUN 10 mg/dL (7-18) 11/10/17 08:00 Creatinine 0.9 mg/dL (0.55-1.02) 11/10/17 08:00 Creat Clearance w eGFR > 60 (>60) 11/10/17 08:00 Random Glucose 158 mg/dL (74-106) H 11/10/17 08:00 Calcium 8.7 mg/dL (8.5-10.1) 11/10/17 08:00 Total Bilirubin 0.4 mg/dL (0.2-1.0) 11/10/17 08:00 AST 11 U/L (15-37) L 11/10/17 08:00 ALT 14 U/L (12-78) 11/10/17 08:00 Alkaline Phosphatase 74 U/L (45-117) 11/10/17 08:00 Total Protein 6.7 g/dl (6.4-8.2) 11/10/17 08:00 Albumin 3.3 g/dl (3.4-5.0) L 11/10/17 08:00 Urine Color Yellow 11/09/17 21:30 Urine Appearance Cloudy 11/09/17 21:30 Urine pH 6.0 (5.0-8.0) 11/09/17 21:30 Ur Specific Holden 1.006 (1.001-1.035) 11/09/17 21:30 Urine Protein Negative (NEGATIVE) 11/09/17 21:30 Urine Glucose (UA) Negative (NEGATIVE) 11/09/17 21:30 Urine Ketones Negative (NEGATIVE) 11/09/17 21:30 Urine Blood Negative (NEGATIVE) 11/09/17 21:30 Urine Nitrite Negative (NEGATIVE) 11/09/17 21:30 Urine Bilirubin Negative (<2.0 mg/dL) 11/09/17 21:30 Urine Urobilinogen Negative mg/dL (0.2-1.0) 11/09/17 21:30 Ur Leukocyte Esterase 1+ (NEGATIVE) H 11/09/17 21:30 Urine WBC (Auto) 5 /hpf (3-5) 11/09/17 21:30 Urine RBC (Auto) 2 /hpf (0-3) 11/09/17 21:30 Ur Epithelial Cells Many /HPF (FEW) 11/09/17 21:30 Urine Bacteria Moderate /hpf (NONE SEEN) 11/09/17 21:30 Urine Mucus Rare 11/09/17 21:30 Assessment: 11/10/17 11:34 withdrawal symptom Plan: continue detox,bgm bidac,initial glucose is 158
--- NOTE | 2017-11-10 14:57 | CONSULT ---
[facility] Psychiatric Consult - Data Date of interview: 11/10/17 Admission source: [facility] Identifying data: This is one of multiple admissions to [facility] for this 42 y/ o female seeking detoxification on for heroin and cocaine dependence.Patient is without dependents,homeless,unemployed and financially supported by relatives + friends. Substance Abuse History: Discussed in this interview.Patient admits to sporadic use of alcohol and heavy heroin/cocaine abuse.Detail in [facility] report : Smoking history: Current every day smoker. Have you smoked in the past 12 months: Yes. Aproximately how many cigarettes per day: 1. Cigars Per Day: 0. Hx Chewing Tobacco Use: No. Initiated information on smoking cessation: Yes. 'Breaking Loose' booklet given: 11/09/17. - Substance & Tx. History. Hx Alcohol Use: Yes. Hx Substance Use: Yes. Substance Use Type: Cocaine, Heroin. Hx Substance Use Treatment: Yes ([facility]). - Substances Abused. Heroin. Route: Injection. Frequency: Daily. Amount used: 6 BAGS AND UP. Age of first use: 16. Date of Last Use: 11/09/17 (10 am ). Cocaine. Route: Injection. Frequency: Daily. Amount used: 1 bag. Age of first use: 16. Date of Last Use : 11/09/17. Alcohol. Frequency: 3-6 times per week Medical History: Patient endorses good general health. Psychiatric History: Disorganized and unreliable historian.Patient in this interview, denies history of psychiatric hospitalizations (previous records indicate that the patient is already known to [facility]) but she admits to being prescribed haldol + seroquel + xanax.Ms Ashford declares that she is currently followed at the [facility] in the [place].Endorses the diagnosis of Schizophrenia.Patient states that she had stopped taking medications for " a while ", which led her psychiatrist to the decision to restart seroquel at 200 mg at bedtime.No known history of suicide attempts (to another clinician, patient has reported past suicide attempt, at age 29, via wrist-cutting). Physical/Sexual Abuse/Trauma History: Not discussed in this interview. Additional Comment: Urine Drug Screen Results: FLAKITO-Cocaine, OPI-Opiates, TCA- Tricyclic Antidepress, OXY-Oxycodone.Noted. Mental Status Exam - Mental Status Exam Alert and Oriented to: Time, Place, Person Cognitive Function: Grossly Intact Patient Appearance: Disheveled (small stature,thin habitus) Mood: Nervous, Anxious Affect: Inappropriate Patient Behavior: Suspicious, Cooperative Speech Pattern: Unclear, Tangential Voice Loudness: Normal Thought Process: Circumstantial, Disorganized Thought Disorder: Bizarre Hallucinations: Denies Suicidal Ideation: Denies Homicidal Ideation: Denies Insight/Judgement: Poor Sleep: Poorly, Difficulty falling asleep Appetite: Fair Gait/Station: Normal Psychiatric Findings - Problem List (Gunpowder 1, 2,3) (1) Opioid dependence with withdrawal Current Visit: Yes Status: Acute (2) Alcohol dependence Current Visit: Yes Status: Acute (3) Nicotine dependence Current Visit: Yes Status: Acute Qualifiers: Nicotine product type: cigarettes Substance use status: uncomplicated Qualified Code(s): F17.210 - Nicotine dependence, cigarettes, uncomplicated (4) Cocaine dependence Current Visit: Yes Status: Acute (5) Drug-induced mood disorder Current Visit: Yes Status: Acute (6) Schizophrenia Current Visit: Yes Status: Chronic (7) Non-compliance with treatment Current Visit: Yes Status: Acute (8) Insomnia Current Visit: Yes Status: Acute - Initial Treatment Plan Initial Treatment Plan: Records at [facility] : reviewed.Psychoeducation and support.Detoxification in progress. Sleep hygiene.Will restart seroquel at 200 mg po hs and titrate according to tolerability + clinical response.Side effects/ benefits discussed with the patient.Ms Ashford agrees to this plan of care.Observation.
--- NOTE | 2017-11-10 19:01 | EKG ---
Test Reason : Blood Pressure : / mmHG Vent. Rate : 095 BPM Atrial Rate : 095 BPM P-R Int : 152 ms QRS Dur : 076 ms QT Int : 348 ms P-R-T Axes : 073 076 045 degrees QTc Int : 437 ms NORMAL SINUS RHYTHM NORMAL ECG WHEN COMPARED WITH ECG OF 23-AUG-2017 23:28, VENT. RATE HAS INCREASED BY 39 BPM T WAVE AMPLITUDE HAS DECREASED IN ANTEROLATERAL LEADS Confirmed by MD GONZALO, DIONICIO ([id number]) on 11/10/2017 7:01:13 PM Referred By: Confirmed By:DIONICIO SÁNCHEZ MD
[2017-11-10] MEDS: QUEtiapine FUMARATE 200 MG TABLET PO SCH (22:14)
[2017-11-10] MEDS: THIAMINE HCL 100 MG TABLET (FP) PO SCH (22:14)
[2017-11-10] MEDS: hydrOXYzine PAMOATE 25 MG CAPSULE (FP) PO PRN (22:16)
[2017-11-11] MEDS ORDERED: METHADONE HCL 5 MG TABLET (FOR DETOX USE ONLY) PO ONE (10:00)
[2017-11-11] MEDS: PRENATAL VITAMINS W/ FOLIC ACID TABLET (FP) PO SCH (10:27)
[2017-11-11] MEDS: diazePAM 5 MG TABLET PO PRN ×3 (10:27→22:25)
--- NOTE | 2017-11-11 14:42 | PN ---
BHS COWS - Scale Resting Pulse: 1= NM 81-100 Sweatin= Chills/Flushing Restless Observation: 1= Difficult to Sit Still Pupil Size: 1= Pupils >than Normal Bone or Joint Aches: 0= None Runny Nose/ Eye Tearin= None GI Upset > 30mins: 2= Nausea/Diarrhea (Nausea w/o vomiting) Tremor Observation of Outstretched Hands: 2= Slight Tremor Visible Yawning Observation: 0= None Anxiety or Irritability: 1=Feels Anxious/Irritable Goose Flesh Skin: 0=Smooth Skin COWS Score: 9 BHS Progress Note (SOAP) Subjective: C/o mild w/drawal symptoms. Denies headache. C/o depression and reqesting to see mental health provider. Denies tyhoughts of harming self or others. Objective: 11/11/17 14:42 Alert and oriented x 3. Lungs CTA. Abdomen soft and non-tender. Hyperactive bowel sounds. Mild tremors of hands. COWS = 8. Vital Signs 11/11/17 11/11/17 07:21 10:00 Temperature 96.4 F L 97.1 F L Pulse Rate 86 98 H Respiratory 18 20 Rate Blood Pressure 92/54 124/82 Assessment: 11/11/17 14:44 Opiate withdrawal. Plan: Continue detox protocol. Continue f/u w/ psych.
[2017-11-11] MEDS: THIAMINE HCL 100 MG TABLET (FP) PO SCH (22:24)
[2017-11-11] MEDS: QUEtiapine FUMARATE 200 MG TABLET PO SCH (22:24)
[2017-11-12] MEDS: diazePAM 5 MG TABLET PO PRN ×2 (05:08→10:39)
[2017-11-12] MEDS ORDERED: METHADONE HCL 5 MG TABLET (FOR DETOX USE ONLY) PO ONE (10:00)
--- NOTE | 2017-11-12 10:25 | PN ---
Psychiatric Progress Note Vital Signs: Vital Signs Period Temp Pulse Resp BP Sys/Archuleta Pulse Ox Last 24 Hr 96.4 F-98.2 F 70-94 - 98-112/61-74 Date of Session: 11/12/17 Chief Complaint:: Medications HPI: Patient reports taking prior to admission: Seroquel 200mg po bid Current Medications: Active Medications Generic Name Dose Route Start Last Admin Trade Name Freq PRN Reason Stop Dose Admin Acetaminophen 650 mg 11/09/17 18:30 Tylenol - PO Q4H PRN FEVER Al Hydroxide/Mg Hydroxide 30 ml 11/09/17 18:30 Mylanta Oral Suspension - PO Q6H PRN DYSPEPSIA Diazepam 10 mg 11/09/17 18:30 11/12/17 05:08 Valium - PO 11/12/17 18:29 10 mg Q4H PRN Administration WITHDRAWAL(CONT SUBST) Eucalyptus/Menthol/Phenol/Sorbitol 1 each 11/09/17 18:30 Cepastat Lozenge - MM Q4H PRN SORE THROAT Guaifenesin 10 ml 11/09/17 18:30 Robitussin Dm - PO Q6H PRN COUGH Hydroxyzine Pamoate 25 mg 11/10/17 13:54 11/10/17 22:16 Vistaril - PO 25 mg Q4H PRN Administration AGITATION Ibuprofen 400 mg 11/09/17 18:30 Motrin - PO Q6H PRN PAIN LEVEL 4-6 Loperamide HCl 4 mg 11/09/17 18:30 Imodium - PO Q6H PRN DIARRHEA Magnesium Citrate 300 ml 11/09/17 18:30 Citroma - PO Q48H PRN CONSTIPATION Magnesium Hydroxide 30 ml 11/09/17 18:30 Milk Of Magnesia - PO DAILY PRN CONSTIPATION Melatonin 5 mg 11/09/17 22:00 11/09/17 23:19 Melatonin PO 5 mg HS PRN Administration INSOMNIA Methadone HCl 5 mg 11/14/17 06:00 Dolophine - PO 11/14/17 06:01 ONCE@0600 ONE Methadone HCl 10 mg 11/13/17 10:00 Dolophine - PO 11/13/17 10:01 ONCE ONE Multivit/Folic Acid/Iron 1 tab 11/10/17 10:00 11/11/17 10:27 Vitamins (Sjr) - PO Not Given DAILY ADOLFO Pseudoephedrine/Triprolidine 1 combo 11/09/17 18:30 Actifed - PO TID PRN NASAL CONGESTION Quetiapine Fumarate 200 mg 11/10/17 22:00 11/11/17 22:24 Seroquel - PO 200 mg HS ADOLFO Administration Thiamine HCl 100 mg 11/09/17 22:00 11/11/17 22:24 Vitamin B1 - PO 100 mg HS ADOLFO Administration Medication(s) Change(s): Seroquel 100mg po bid Mental Status Exam - Mental Status Exam Alert and Oriented to: Person Cognitive Function: Fair Patient Appearance: Unkempt Mood: Apprehensive Affect: Mood Congruent Patient Behavior: Cooperative Speech Pattern: Appropriate Voice Loudness: Mildly Soft/Quiet Thought Process: Goal Oriented Thought Disorder: Being Controlled Hallucinations: Denies Suicidal Ideation: Denies Homicidal Ideation: Denies Insight/Judgement: Fair Sleep: Difficulty falling asleep Appetite: Fair Muscle strength/Tone: Mild Hypotonicity Gait/Station: Shuffling Additional Comments: Seroquel 100mg po bid Psychiatric Treatment Plan - Problem List (1) Alcohol dependence Current Visit: Yes (2) Cocaine dependence Current Visit: Yes (3) Drug-induced mood disorder Current Visit: Yes (4) Nicotine dependence Current Visit: Yes Qualifiers: Nicotine product type: cigarettes Substance use status: uncomplicated Qualified Code(s): F17.210 - Nicotine dependence, cigarettes, uncomplicated (5) Non-compliance with treatment Current Visit: Yes (6) Opioid dependence with withdrawal Current Visit: Yes (7) Cocaine use disorder Current Visit: Yes (8) Schizophrenia Current Visit: Yes (9) Asthma Current Visit: No Qualifiers: Asthma severity: mild Asthma complication type: unspecified (10) Benzodiazepine withdrawal without complication Current Visit: No Comment: TITLE COORDINATOR indicates alprazolam 0.5 mg PO Tabs. Last dispensed 10 tabs on 06/25/17. (11) Drug-induced psychotic disorder Current Visit: No Comment: suspected (12) Schizoaffective disorder Current Visit: No Comment: Pt. self reports. Pt is nonadherent to outpatient treatment and medications. Initial treatment plan: Seroquel 100mg poqd, 200mg po qhs
[2017-11-12] MEDS: PRENATAL VITAMINS W/ FOLIC ACID TABLET (FP) PO SCH (10:35)
--- NOTE | 2017-11-12 10:56 | PN ---
S Progress Note (SOAP) Subjective: alert,irritable,anxious,interrupted sleep,tremor Objective: 11/12/17 10:55 Vital Signs Temperature 98.1 F 11/12/17 10:03 Pulse Rate 94 H 11/12/17 10:03 Respiratory Rate 18 11/12/17 10:03 Blood Pressure 98/65 11/12/17 10:03 O2 Sat by Pulse Oximetry (%) Assessment: 11/12/17 10:55 withdrawal symptom Plan: continue detox,bgm monitoring bid,initial glucose is 158
[2017-11-12] MEDS: hydrOXYzine PAMOATE 25 MG CAPSULE (FP) PO PRN ×2 (13:03→22:11)
[2017-11-12] MEDS: QUEtiapine FUMARATE 100 MG TABLET (FP) PO SCH (14:50)
[2017-11-12] MEDS: QUEtiapine FUMARATE 200 MG TABLET PO SCH (22:11)
[2017-11-12] MEDS: THIAMINE HCL 100 MG TABLET (FP) PO SCH (22:12)
[2017-11-12] MEDS: MELATONIN 5 MG TABLETS PO PRN (22:12)
[2017-11-13 09:42] VITALS: BP 141/65; PULSE 94; TEMP 96.3
[2017-11-13] MEDS ORDERED: METHADONE HCL 10 MG TABLET (FOR DETOX USE ONLY) PO ONE (10:00)
[2017-11-13] MEDS: PRENATAL VITAMINS W/ FOLIC ACID TABLET (FP) PO SCH (11:05)
[2017-11-13] MEDS: QUEtiapine FUMARATE 100 MG TABLET (FP) PO SCH (11:06)
--- NOTE | 2017-11-13 11:43 | PN ---
[facility] Progress Note (SOAP) Subjective: alert,no complaint Objective: 11/13/17 11:41 Vital Signs Temperature 96.3 F L 11/13/17 09:41 Pulse Rate 94 H 11/13/17 09:41 Respiratory Rate 18 11/13/17 09:41 Blood Pressure 141/65 11/13/17 09:41 O2 Sat by Pulse Oximetry (%) Assessment: 11/13/17 11:42 patient is stable for discharge today Plan: follow up with after care program as arrangement
--- NOTE | 2017-11-13 11:46 | DS ---
[facility] Detox Discharge Summary Admission Date: 11/09/17 Discharge Date: 11/13/17 - History Present History: Cocaine Dependence, Opioid Dependence Additional Comments: stable for discharge today,follow up with after care program as arrangement Pertinent Past History: asthma - Physical Exam Results Vital Signs: Vital Signs Temperature 96.3 F L 11/13/17 09:41 Pulse Rate 94 H 11/13/17 09:41 Respiratory Rate 18 11/13/17 09:41 Blood Pressure 141/65 11/13/17 09:41 O2 Sat by Pulse Oximetry (%) Pertinent Admission Physical Exam Findings: withdrawal signs and symptom - Treatment Hospital Course: Detox Protocol Followed, Detoxed Safely, Responded well, Discharged Condition Good Patient has Accepted a Rehab Referral to: kary - Medication Discharge Medications: Ambulatory Orders Albuterol Sulfate Inhaler - [Ventolin HFA Inhaler -] 2 puff IH Q4H PRN #1 inhaler 06/23/17 Quetiapine Fumarate [Seroquel -] 200 mg PO BID 11/09/17 - Diagnosis (1) Opioid dependence with withdrawal Current Visit: Yes Status: Acute (2) Cocaine dependence Current Visit: Yes Status: Acute (3) Dehydration Current Visit: Yes Status: Acute (4) Asthma Current Visit: No Status: Acute Qualifiers: Asthma severity: mild Asthma complication type: unspecified (5) Schizophrenia Current Visit: Yes Status: Chronic - AMA Did Patient Leave Against Medical Advice: No
[2017-11-14] MEDS ORDERED: METHADONE HCL 5 MG TABLET (FOR DETOX USE ONLY) PO ONE (06:00)
== END 2017-11-13 12:15 | disposition home or self-care (01) | DRG 773 ==
LOC: YASAS 11:44 → Y6N 17:56
PROVIDERS: ADMIT Surgery; ATTEND Surgery
PROC: HZ2ZZZZ Detoxification Services for Substance Abuse Treatment (ICD-10-PCS; principal; 2017-11-09)
DX: F11.23 Opioid dependence with withdrawal (principal); F10.230 Alcohol dependence with withdrawal, uncomplicated; F13.230 Sedative, hypnotic or anxiolytic dependence with withdrawal, uncomplicated; F14.20 Cocaine dependence, uncomplicated; F17.210 Nicotine dependence, cigarettes, uncomplicated; F20.9 Schizophrenia, unspecified; F25.9 Schizoaffective disorder, unspecified; F19.951 Other psychoactive substance use, unspecified with psychoactive substance-induced psychotic disorder with hallucinations; F19.24 Other psychoactive substance dependence with psychoactive substance-induced mood disorder; E86.0 Dehydration; J45.998 Other asthma; G47.00 Insomnia, unspecified; J34.89 Other specified disorders of nose and nasal sinuses; Z88.8 Allergy status to other drugs, medicaments and biological substances; Z91.19 Patient's noncompliance with other medical treatment and regimen; Z91.013 Allergy to seafood; Z91.038 Other insect allergy status
CPT/HCPCS: 36415; 80053; 81003; 81015; 82962; 85027; 86593; 93005; 93010

== ENCOUNTER 2019-02-11 14:09 | Inpatient (IN) | payer OTHER ==
[2019-02-11 17:33] VITALS: BMI 26.4
--- NOTE | 2019-02-11 18:37 | HP ---
CIWA Score - Admission Criteria OASAS Guidelines: Admission for Medically Managed Detox: Requires at least one of the followin. CIWA greater than 12 2. Seizures within the past 24 hours 3. Delirium tremens within the past 24 hours 4. Hallucinations within the past 24 hours 5. Acute intervention needed for co occurring medical disorder 6. Acute intervention needed for co occurring psychiatric disorder 7. Severe withdrawal that cannot be handled at a lower level of care (continued vomiting, continued diarrhea, abnormal vital signs) requiring intravenous medication and/or fluids 8. Admitting History and Physical - Past Medical History ...LMP: 07/23/17 - Smoking History Smoking history: Current every day smoker Have you smoked in the past 12 months: Yes Aproximately how many cigarettes per day: 1 - Alcohol/Substance Use Hx Alcohol Use: Yes Admission ROS [facility] Chief Complaint: here for rehab admission- pt has schizophrenia and is on MAT- methadone Allergies/Adverse Reactions: Allergies Allergy/AdvReac Type Severity Reaction Status Date / Time buprenorphine [From Suboxone] Allergy Severe Vomiting Verified 02/11/19 17:17 Fish Containing Products Allergy Severe Hives Verified 02/11/19 17:17 naloxone [From Suboxone] Allergy Severe Vomiting Verified 02/11/19 17:17 venom-honey bee Allergy Severe Swelling Verified 02/11/19 17:17 [bee venom (honey bee)] No Known Drug Allergies Allergy Verified 08/23/17 19:29 apple juice Allergy Mild Rash Uncoded 02/11/19 17:17 History of Present Illness: 43 yo with schizophrenia- taking meds. Pt states using cocaine- $20/day, heroin - $60/day IV, also on methadone 50mg/day. Also taking xanax- occasionally. Alcohol drinks occ. Says she is here for rehab. States that she lives with her mother in the [place]. On SSI/SSD Psych- Ej Alvarez DUR- no meds Utox- pos for BZO, MTD, Flakito - Ebola screening Have you traveled outside of the country in the last 21 days: No Have you had contact with anyone from an Ebola affected area: No Do you have a fever: No - Review of Systems Constitutional: No Symptoms Reported EENT: reports: No Symptoms Reported Respiratory: reports: No Symptoms reported Cardiac: reports: No Symptoms Reported GI: reports: No Symptoms Reported : reports: No Symptoms Reported Musculoskeletal: reports: No Symptoms Reported Integumentary: reports: No Symptoms Reported Neuro: reports: No Symptoms reported Endocrine: reports: No Symptoms Reported Hematology: reports: No Symptoms Reported Psychiatric: reports: No Sypmtoms Reported Other Systems: Reviewed and Negative Patient History - Patient Medical History Hx Anemia: No Hx Asthma: No Hx Chronic Obstructive Pulmonary Disease (COPD): No Hx Cancer: No Hx Cardiac Disorders: No Hx Congestive Heart Failure: No Hx Hypertension: No Hx Hypercholesterolemia: No Hx Pacemaker: No HX Cerebrovascular Accident: No Hx Seizures: No Hx Dementia: No Hx Diabetes: No Hx Gastrointestinal Disorders: No Hx Liver Disease: No Hx Genitourinary Disorders: No Hx Sexually Transmitted Disorders: No Hx Renal Disease (ESRD): No Hx Thyroid Disease: No Hx Human Immunodeficiency Virus (HIV): No Hx Hepatitis C: No Hx Depression: Yes Hx Suicide Attempt: No Hx Bipolar Disorder: Yes Hx Schizophrenia: Yes - Patient Surgical History Past Surgical History: No Hx Neurologic Surgery: No Hx Cataract Extraction: No Hx Cardiac Surgery: No Hx Lung Surgery: No Hx Breast Surgery: No Hx Breast Biopsy: No Hx Abdominal Surgery: No Hx Appendectomy: No Hx Cholecystectomy: No Hx Genitourinary Surgery: No Hx Section: No Hx Orthopedic Surgery: No Anesthesia Reaction: No - PPD History Date: 03/15/17 Results: 0MM - Reproductive History Last Menstrual Period: 07/23/17 - Smoking Cessation Smoking history: Current every day smoker Have you smoked in the past 12 months: Yes Aproximately how many cigarettes per day: 3 Cigars Per Day: 0 Hx Chewing Tobacco Use: No Initiated information on smoking cessation: Yes 'Breaking Loose' booklet given: 02/11/19 - Substance & Tx. History Hx Alcohol Use: Yes Hx Substance Use: Yes Substance Use Type: Alcohol, Cocaine, Heroin - Substances abused Alcohol Substance route: Oral Frequency: Daily Amount used: 1/5th of Vodka Age of first use: 17 Date of last use: 02/11/19 Heroin Frequency: Daily Amount used: 8 Age of first use: 16 Date of last use: 02/11/19 Cocaine Substance route: Smoking Frequency: Daily Amount used: $60 Admission Physical Exam [facility] - Vital Signs Vital Signs: Vital Signs - 24 hr 02/11/19 17:24 Temperature 98.1 F Pulse Rate 76 Respiratory 16 Rate Blood Pressure 121/70 - Physical General Appearance: Yes: Within Normal Limits HEENTM: Yes: Within Normal Limits, Other (nasal polyp) Respiratory: Yes: Within Normal Limits, Lungs Clear Neck: Yes: Within Normal Limits Cardiology: Yes: Within Normal Limits, Regular Rhythm, Regular Rate Abdominal: Yes: Within Normal Limits, Normal Bowel Sounds Genitourinary: Yes: Within Normal Limits Back: Yes: Within Normal Limits Musculoskeletal: Yes: Within Normal Limits Extremities: Yes: Within Normal Limits Neurological: Yes: Within Normal Limits Integumentary: Yes: Within Normal Limits Lymphatic: Yes: Within Normal Limits - Diagnostic (1) Nicotine dependence Current Visit: No Status: Acute Qualifiers: Nicotine product type: cigarettes Substance use status: uncomplicated Qualified Code(s): F17.210 - Nicotine dependence, cigarettes, uncomplicated (2) Cocaine use disorder Current Visit: No Status: Chronic (3) Perforated nasal septum Current Visit: No Status: Chronic (4) Schizophrenia Current Visit: No Status: Chronic Breathalyzer - Breathalyzer Breathalyzer: 0 Urine Drug Screen - Test Device Lot number: [id number] Expiration date: 09/22/20 - Control Is test valid?: Yes - Results Drug screen NEGATIVE: No Urine drug screen results: FLAKITO-Cocaine, MTD-Methadone, BZO-Benzodiazepines Inpatient Rehab Admission - Rehab Decision to Admit Inpatient rehab admission?: Yes - Initial Determination Are CD services needed?: Yes Free of communicable disease: Yes Not in need of hospitalization: Yes - Rehab Admission Criteria Previous failed treatment: Yes Poor recovery environment: Yes Comorbidities: Yes Lacks judgement: Yes Patient is meeting Inpatient Rehab admission criteria:: Yes (pt has schizophrenia)
[2019-02-11] MEDS ORDERED: MAGNESIUM HYDROX 2400MG/30ML ORAL SUSPENSION 30 ML CUP PO PRN (18:42)
[2019-02-11] MEDS ORDERED: guaiFENesin 200 MG/10 ML 10 ML UNIT-DOSE CUPS PO PRN (18:42)
[2019-02-11] MEDS ORDERED: MENTHOL/PHENOL 1 EACH UD MM PRN (18:42)
[2019-02-11] MEDS ORDERED: NICOTINE POLACRILEX 2 MG GUM BC PRN (18:42)
[2019-02-11] MEDS ORDERED: MAG HYDROX/AL HYDROX/SIMETH 30 ML UNIT-DOSE CUP PO PRN (18:42)
[2019-02-11] MEDS ORDERED: P-EPHED 60MG/TRIPROLIDI 2.5MG TABLET PO PRN (18:42)
[2019-02-11] MEDS ORDERED: MAGNESIUM CITRATE 300 ML BOTTLE PO PRN (18:42)
[2019-02-11] MEDS ORDERED: LOPERAMIDE HCL 2 MG CAPSULE PO PRN (18:42)
[2019-02-11] MEDS ORDERED: TUBERCULIN PPD 5 TU/0.1ML VIAL ID ONE (19:56)
[2019-02-11] MEDS ORDERED: ALBUTEROL SO4 8 GM HFA INHALER IH PRN (20:53)
[2019-02-11] MEDS: THIAMINE HCL 100 MG TABLET (FP) PO SCH (21:38)
[2019-02-11] MEDS ORDERED: DIVALPROEX SODIUM 250 MG TABLET E.C. PO SCH (22:00)
[2019-02-11] MEDS ORDERED: diphenhydrAMINE HCL 50 MG CAPSULE PO SCH (22:00)
[2019-02-11] MEDS ORDERED: QUEtiapine FUMARATE 200 MG TABLET PO SCH (22:00)
[2019-02-11] MEDS ORDERED: risperiDONE 1 MG TABLET (FP) PO SCH (22:00)
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
[2019-02-12] MEDS: METHADONE HCL 10 MG TABLET PO SCH (07:43)
[2019-02-12] MEDS ORDERED: PT OWN MED DRAWER 7, Y5N ONE (09:19)
[2019-02-12] MEDS ORDERED: busPIRone HCL 10 MG TABLET (FP) PO SCH (10:00)
[2019-02-12] MEDS: PRENATAL VITAMINS W/ FOLIC ACID TABLET (FP) PO SCH (10:40)
--- NOTE | 2019-02-12 11:10 | PN ---
S Progress Note (SOAP) Subjective: Patient with abscess on right forearm that she states is a result of heroin injections in that area. Objective: P/E: General: found resting in bed, no apparent distress Lungs: clear Heart: s1 s2 SKIN: color consistent throughout except for right forearm, with raised, read, warm, scaling lesion approximately 3 inches in diameter. Neuro: Cn 2-12 intact, fully oriented MSK: full weight bearing, full ROM, steady gait 02/12/19 11:05 Vital Signs (72 hours) 02/11/19 02/11/19 02/12/19 17:24 20:30 00:34 Temperature 98.1 F 97.3 F L Pulse Rate 76 61 Respiratory 16 18 18 Rate Blood Pressure 121/70 109/72 02/12/19 02/12/19 03:18 07:00 Temperature 97.2 F L Pulse Rate 83 Respiratory 18 18 Rate Blood Pressure 97/60 Assessment: abscess, right forearm 02/12/19 11:10 Plan: keflex 500 mg BID started. Bacitracin dressings BID, will continue to monitor.
[2019-02-12] MEDS: CEPHALEXIN MONOHYDRATE 500 MG CAPSULE (UD) PO SCH ×2 (11:45→21:27)
[2019-02-12] MEDS: QUEtiapine FUMARATE 200 MG TABLET PO SCH ×2 (11:46→21:27)
[2019-02-12] MEDS: DIVALPROEX SODIUM 250 MG TABLET E.C. PO SCH ×2 (11:46→21:27)
[2019-02-12] MEDS: risperiDONE 1 MG TABLET (FP) PO SCH (11:46)
[2019-02-12 11:59] LABS: HEMATOCRIT 34.7 % (32.4-45.2); HEMOGLOBIN 11.8 GM/dL (10.7-15.3); MCHC 33.9 g/dl (32.0-36.0); MEAN CELL VOLUME 88.5 fl (80-96); MEAN PLT VOLUME 7.4 fl (7.5-11.1); PLATELET COUNT 363 K/MM3 (134-434); RBC 3.93 M/mm3 (3.60-5.2); RDW 12.5 % (11.6-15.6); WHITE BLOOD COUNT 3.2 K/mm3 (4.0-10.0)
[2019-02-12 12:10] LABS: ALBUMIN 3.4 g/dl (3.4-5.0); BILIRUBIN,TOTAL 0.3 mg/dL (0.2-1); BLOOD UREA NITROGEN 6.2 mg/dL (7-18); CREATININE 0.9 mg/dL (0.55-1.3); POTASSIUM 3.7 mmol/L (3.5-5.1); TOT PROT 6.8 g/dl (6.4-8.2)
[2019-02-12] MEDS: THIAMINE HCL 100 MG TABLET (FP) PO SCH (21:27)
[2019-02-12] MEDS: BACITRACIN 15 GM TUBE TOPICAL OINTMENT TP SCH (21:28)
[2019-02-13] MEDS: METHADONE HCL 10 MG TABLET PO SCH (06:45)
[2019-02-13] MEDS: BACITRACIN 15 GM TUBE TOPICAL OINTMENT TP SCH ×2 (09:15→21:19)
[2019-02-13] MEDS: risperiDONE 1 MG TABLET (FP) PO SCH (09:16)
[2019-02-13] MEDS: PRENATAL VITAMINS W/ FOLIC ACID TABLET (FP) PO SCH (09:16)
[2019-02-13] MEDS: CEPHALEXIN MONOHYDRATE 500 MG CAPSULE (UD) PO SCH ×2 (09:16→21:18)
[2019-02-13] MEDS: QUEtiapine FUMARATE 200 MG TABLET PO SCH ×2 (09:16→21:18)
[2019-02-13] MEDS: DIVALPROEX SODIUM 250 MG TABLET E.C. PO SCH ×2 (09:16→21:18)
[2019-02-13] MEDS: hydrOXYzine PAMOATE 25 MG CAPSULE (FP) PO PRN (20:20)
[2019-02-13] MEDS: THIAMINE HCL 100 MG TABLET (FP) PO SCH (21:18)
[2019-02-13] MEDS: MELATONIN 5 MG TABLETS PO PRN (21:18)
[2019-02-14] MEDS: METHADONE HCL 10 MG TABLET PO SCH (06:45)
[2019-02-14] MEDS ORDERED: PT OWN MED DRAWER 7, Y5N ONE (08:39)
[2019-02-14] MEDS: risperiDONE 1 MG TABLET (FP) PO SCH (10:03)
[2019-02-14] MEDS: CEPHALEXIN MONOHYDRATE 500 MG CAPSULE (UD) PO SCH ×2 (10:03→21:41)
[2019-02-14] MEDS: BACITRACIN 15 GM TUBE TOPICAL OINTMENT TP SCH ×2 (10:03→21:43)
[2019-02-14] MEDS: PRENATAL VITAMINS W/ FOLIC ACID TABLET (FP) PO SCH (10:03)
[2019-02-14] MEDS: DIVALPROEX SODIUM 250 MG TABLET E.C. PO SCH ×2 (10:03→21:41)
[2019-02-14] MEDS: QUEtiapine FUMARATE 200 MG TABLET PO SCH ×2 (10:04→21:43)
[2019-02-14] MEDS: hydrOXYzine PAMOATE 25 MG CAPSULE (FP) PO PRN (10:05)
--- NOTE | 2019-02-14 12:43 | PN ---
Psychiatric Progress Note Vital Signs: Vital Signs Period Temp Pulse Resp BP Sys/Archuleta Pulse Ox Last 24 Hr 97.2 F 68 16-18 113/75 Date of Session: 02/14/19 Current Medications: Active Medications Generic Name Dose Route Start Last Admin Trade Name Freq PRN Reason Stop Dose Admin Acetaminophen 650 mg 02/11/19 18:42 Tylenol - PO Q4H PRN FEVER Al Hydroxide/Mg Hydroxide 30 ml 02/11/19 18:42 Mylanta Oral Suspension - PO Q6H PRN DYSPEPSIA Albuterol Sulfate 2 puff 02/11/19 20:53 Ventolin Hfa Inhaler - IH Q4H PRN ASTHMA Bacitracin 1 applic 02/12/19 22:00 02/14/19 10:03 Bacitracin - TP Not Given BID ADOLFO Cephalexin HCl 500 mg 02/12/19 11:00 02/14/19 10:03 Keflex - PO 500 mg BID ADOLFO Administration Divalproex Sodium 250 mg 02/12/19 10:45 02/14/19 10:03 Depakote - PO 250 mg BID ADOLFO Administration Eucalyptus/Menthol/Phenol/Sorbitol 1 each 02/11/19 18:42 Cepastat Lozenge - MM Q4H PRN SORE THROAT Guaifenesin 10 ml 02/11/19 18:42 Robitussin - PO Q6H PRN COUGH Hydroxyzine Pamoate 50 mg 02/14/19 11:40 Vistaril - PO Q4H PRN ANXIETY Ibuprofen 400 mg 02/11/19 18:42 Motrin - PO Q6H PRN Pain level 4-6 Loperamide HCl 4 mg 02/11/19 18:42 Imodium - PO Q6H PRN DIARRHEA Magnesium Citrate 300 ml 02/11/19 18:42 Citroma - PO Q48H PRN CONSTIPATION Magnesium Hydroxide 30 ml 02/11/19 18:42 Milk Of Magnesia - PO DAILY PRN CONSTIPATION Melatonin 5 mg 02/11/19 22:00 02/13/19 21:18 Melatonin PO 5 mg HS PRN Administration INSOMNIA Methadone HCl 50 mg 02/12/19 07:30 02/14/19 06:45 Dolophine - PO 50 mg DAILY@0600 ADOLFO Administration Nicotine Polacrilex 2 mg 02/11/19 18:42 Nicorette Gum - BC Q2H PRN NICOTINE REPLACEMENT RX Multivit/Folic Acid/Iron 1 tab 02/12/19 10:00 02/14/19 10:03 Vitamins (Sjr) - PO 1 tab DAILY ADOLFO Administration Pseudoephedrine/Triprolidine 1 combo 02/11/19 18:42 Actifed - PO TID PRN NASAL CONGESTION Quetiapine Fumarate 200 mg 02/12/19 10:45 02/14/19 10:04 Seroquel - PO 200 mg BID ADOLFO Administration Risperidone 1 mg 02/12/19 10:45 02/14/19 10:03 Risperdal - PO 1 mg DAILY ADOLFO Administration Thiamine HCl 100 mg 02/11/19 22:00 02/13/19 21:18 Vitamin B1 - PO 100 mg HS ADOLFO Administration
--- NOTE | 2019-02-14 14:04 | PN ---
Psychiatric Progress Note Vital Signs: Vital Signs Period Temp Pulse Resp BP Sys/Archuleta Pulse Ox Last 24 Hr 97.2 F 68 16-18 113/75 Date of Session: 02/14/19 Chief Complaint:: " I feel anxious on the unit." HPI: Patient admitted to [facility] for alcohol, opioid, cocaine and benzodiazepine dependence. Patient currently having issues with her anxiety. ROS: Patient is coherent, alert + oriented X3. Current Medications: Active Medications Generic Name Dose Route Start Last Admin Trade Name Freq PRN Reason Stop Dose Admin Acetaminophen 650 mg 02/11/19 18:42 Tylenol - PO Q4H PRN FEVER Al Hydroxide/Mg Hydroxide 30 ml 02/11/19 18:42 Mylanta Oral Suspension - PO Q6H PRN DYSPEPSIA Albuterol Sulfate 2 puff 02/11/19 20:53 Ventolin Hfa Inhaler - IH Q4H PRN ASTHMA Bacitracin 1 applic 02/12/19 22:00 02/14/19 10:03 Bacitracin - TP Not Given BID ADOLFO Cephalexin HCl 500 mg 02/12/19 11:00 02/14/19 10:03 Keflex - PO 500 mg BID ADOLFO Administration Divalproex Sodium 250 mg 02/12/19 10:45 02/14/19 10:03 Depakote - PO 250 mg BID ADOLFO Administration Eucalyptus/Menthol/Phenol/Sorbitol 1 each 02/11/19 18:42 Cepastat Lozenge - MM Q4H PRN SORE THROAT Guaifenesin 10 ml 02/11/19 18:42 Robitussin - PO Q6H PRN COUGH Hydroxyzine Pamoate 50 mg 02/14/19 11:40 Vistaril - PO Q4H PRN ANXIETY Ibuprofen 400 mg 02/11/19 18:42 Motrin - PO Q6H PRN Pain level 4-6 Loperamide HCl 4 mg 02/11/19 18:42 Imodium - PO Q6H PRN DIARRHEA Magnesium Citrate 300 ml 02/11/19 18:42 Citroma - PO Q48H PRN CONSTIPATION Magnesium Hydroxide 30 ml 02/11/19 18:42 Milk Of Magnesia - PO DAILY PRN CONSTIPATION Melatonin 5 mg 02/11/19 22:00 02/13/19 21:18 Melatonin PO 5 mg HS PRN Administration INSOMNIA Methadone HCl 50 mg 02/12/19 07:30 02/14/19 06:45 Dolophine - PO 50 mg DAILY@0600 ADOLFO Administration Nicotine Polacrilex 2 mg 02/11/19 18:42 Nicorette Gum - BC Q2H PRN NICOTINE REPLACEMENT RX Multivit/Folic Acid/Iron 1 tab 02/12/19 10:00 02/14/19 10:03 Vitamins (Sjr) - PO 1 tab DAILY ADOLFO Administration Pseudoephedrine/Triprolidine 1 combo 02/11/19 18:42 Actifed - PO TID PRN NASAL CONGESTION Quetiapine Fumarate 200 mg 02/12/19 10:45 02/14/19 10:04 Seroquel - PO 200 mg BID ADOLFO Administration Risperidone 1 mg 02/12/19 10:45 02/14/19 10:03 Risperdal - PO 1 mg DAILY ADOLFO Administration Thiamine HCl 100 mg 02/11/19 22:00 02/13/19 21:18 Vitamin B1 - PO 100 mg HS ADOLFO Administration Medication(s) Change(s): Yes. Will d/c vistaril 25mg Q4H and will order Vistaril 50mg q4h. Current Side Effect: No Lab tests ordered: No Lab tests reviewed: Yes Provider note:: Patient seen by Dr. Ray. Dr. Ray's note read and appreciated. Today patient reports ongoing anxiety that is unresolved by accepting vistaril 25mg q4H. States that she feels confined on the unit which is therefore worsening her anxiety. Patient in agreement to accept a higher dose of vistaril. Will d/c vistaril 25mg q4h and will order vistaril 50mg q4h for anxiety. 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 Patient also requesting to be taken off Depakote due to it having side effects of causing "thining of the hair." Patient encouraged to continue to accept medication as it is effective and has helped stabilize her mood. Patient denies current thining of her hair. Stated that she heard that it was a side effect of depakote but it has not happened to her. Patient further educated on the benefits and side effects of depakote. Patient satisifed and receptive to feedback. Benefits and side effects discussed. Verbal consent given. Total face to face time:: 25 Mental Status Exam - Mental Status Exam Alert and Oriented to: Time, Place, Person Cognitive Function: Good Patient Appearance: Well Groomed Mood: Euthymic Affect: Appropriate Patient Behavior: Cooperative Speech Pattern: Appropriate Voice Loudness: Normal Thought Process: Goal Oriented Thought Disorder: Not Present Hallucinations: Denies Suicidal Ideation: Denies Homicidal Ideation: Denies Insight/Judgement: Poor Sleep: Fair Appetite: Fair Muscle strength/Tone: Normal Gait/Station: Normal Psychiatric Treatment Plan - Problem List (1) Alcohol dependence Current Visit: Yes (2) Sedative hypnotic or anxiolytic dependence Current Visit: Yes (3) Substance-induced sleep disorder Current Visit: Yes (4) Opioid dependence on agonist therapy Current Visit: Yes (5) PTSD (post-traumatic stress disorder) Current Visit: Yes (6) Schizophrenia Current Visit: Yes
[2019-02-14] MEDS: ACETAMINOPHEN 325 MG TABLET (FP) PO PRN (16:13)
[2019-02-14] MEDS: hydrOXYzine PAMOATE 50 MG CAPSULE (FP) PO PRN (21:41)
[2019-02-14] MEDS: THIAMINE HCL 100 MG TABLET (FP) PO SCH (21:41)
[2019-02-15] MEDS: ACETAMINOPHEN 325 MG TABLET (FP) PO PRN (02:10)
[2019-02-15] MEDS: METHADONE HCL 10 MG TABLET PO SCH (06:29)
[2019-02-15] MEDS: DIVALPROEX SODIUM 250 MG TABLET E.C. PO SCH ×2 (10:29→21:11)
[2019-02-15] MEDS: CEPHALEXIN MONOHYDRATE 500 MG CAPSULE (UD) PO SCH ×2 (10:29→21:11)
[2019-02-15] MEDS: PRENATAL VITAMINS W/ FOLIC ACID TABLET (FP) PO SCH (10:29)
[2019-02-15] MEDS: risperiDONE 1 MG TABLET (FP) PO SCH (10:29)
[2019-02-15] MEDS: QUEtiapine FUMARATE 200 MG TABLET PO SCH ×2 (10:29→21:12)
[2019-02-15] MEDS: BACITRACIN 15 GM TUBE TOPICAL OINTMENT TP SCH ×2 (10:30→21:13)
[2019-02-15] MEDS: hydrOXYzine PAMOATE 50 MG CAPSULE (FP) PO PRN (21:11)
[2019-02-15] MEDS: THIAMINE HCL 100 MG TABLET (FP) PO SCH (21:11)
[2019-02-15 23:06] LABS: EPI CELLS 14.1 /HPF (0-5/HPF); HYALINE CASTS 9 /lpf (0-8); PH,URINE 6.5 (5.0-8.0); URINE APPEARANCE CLOUDY; URINE BACTERIA 999.1 /hpf (NEGATIVE); URINE BILIRUBIN NEGATIVE (NEGATIVE); URINE COLOR YELLOW; URINE GLUCOSE (UA) NEGATIVE (NEGATIVE); URINE KETONE NEGATIVE (NEGATIVE); URINE LEUK ESTERASE 1+ (NEGATIVE); URINE NITRITE NEGATIVE (NEGATIVE); URINE PROTEIN NEGATIVE (NEGATIVE); URINE RBC 1 /hpf (0-4); URINE UROBILINOGEN 0.2 mg/dL (0.2-1.0); URINE WBC 27 /hpf (0-5)
[2019-02-16] MEDS: METHADONE HCL 10 MG TABLET PO SCH (06:40)
[2019-02-16] MEDS: QUEtiapine FUMARATE 200 MG TABLET PO SCH ×2 (09:31→21:42)
[2019-02-16] MEDS: CEPHALEXIN MONOHYDRATE 500 MG CAPSULE (UD) PO SCH ×2 (09:31→21:42)
[2019-02-16] MEDS: BACITRACIN 15 GM TUBE TOPICAL OINTMENT TP SCH ×2 (09:31→21:42)
[2019-02-16] MEDS: risperiDONE 1 MG TABLET (FP) PO SCH (09:31)
[2019-02-16] MEDS: PRENATAL VITAMINS W/ FOLIC ACID TABLET (FP) PO SCH (09:31)
[2019-02-16] MEDS: DIVALPROEX SODIUM 250 MG TABLET E.C. PO SCH ×2 (09:32→21:42)
[2019-02-16] MEDS: THIAMINE HCL 100 MG TABLET (FP) PO SCH (21:42)
[2019-02-17] MEDS ORDERED: METHADONE HCL 10 MG TABLET ONE (06:08)
[2019-02-17] MEDS ORDERED: METHADONE HCL 40 MG DISPERSABLE TABLET ONE (06:08)
[2019-02-17] MEDS: METHADONE 40 MG, METHADONE 10 MG PO SCH (06:23)
[2019-02-17] MEDS ORDERED: PT OWN MED DRAWER 7, Y5N ONE (08:33)
[2019-02-17] MEDS: BACITRACIN 15 GM TUBE TOPICAL OINTMENT TP SCH ×2 (10:07→21:21)
[2019-02-17] MEDS: CEPHALEXIN MONOHYDRATE 500 MG CAPSULE (UD) PO SCH ×2 (10:07→21:20)
[2019-02-17] MEDS: QUEtiapine FUMARATE 200 MG TABLET PO SCH ×2 (10:07→21:20)
[2019-02-17] MEDS: risperiDONE 1 MG TABLET (FP) PO SCH (10:07)
[2019-02-17] MEDS: PRENATAL VITAMINS W/ FOLIC ACID TABLET (FP) PO SCH (10:07)
[2019-02-17] MEDS: DIVALPROEX SODIUM 250 MG TABLET E.C. PO SCH ×2 (10:08→21:20)
[2019-02-17] MEDS: THIAMINE HCL 100 MG TABLET (FP) PO SCH (21:20)
[2019-02-17] MEDS: MELATONIN 5 MG TABLETS PO PRN (21:20)
[2019-02-18] MEDS ORDERED: METHADONE HCL 40 MG DISPERSABLE TABLET ONE (03:20)
[2019-02-18] MEDS ORDERED: METHADONE HCL 10 MG TABLET ONE (03:20)
[2019-02-18] MEDS: METHADONE 40 MG, METHADONE 10 MG PO SCH (06:50)
[2019-02-18] MEDS: BACITRACIN 15 GM TUBE TOPICAL OINTMENT TP SCH ×2 (10:22→21:47)
[2019-02-18] MEDS: CEPHALEXIN MONOHYDRATE 500 MG CAPSULE (UD) PO SCH ×2 (10:22→21:46)
[2019-02-18] MEDS: risperiDONE 1 MG TABLET (FP) PO SCH (10:22)
[2019-02-18] MEDS: DIVALPROEX SODIUM 250 MG TABLET E.C. PO SCH ×2 (10:23→21:46)
[2019-02-18] MEDS: QUEtiapine FUMARATE 200 MG TABLET PO SCH ×2 (10:23→21:46)
[2019-02-18] MEDS: PRENATAL VITAMINS W/ FOLIC ACID TABLET (FP) PO SCH (10:23)
[2019-02-18] MEDS: THIAMINE HCL 100 MG TABLET (FP) PO SCH (21:46)
[2019-02-19] MEDS ORDERED: METHADONE HCL 40 MG DISPERSABLE TABLET ONE (03:22)
[2019-02-19] MEDS ORDERED: METHADONE HCL 10 MG TABLET ONE (03:22)
[2019-02-19] MEDS: METHADONE 40 MG, METHADONE 10 MG PO SCH (06:39)
[2019-02-19] MEDS: PRENATAL VITAMINS W/ FOLIC ACID TABLET (FP) PO SCH (10:05)
[2019-02-19] MEDS: BACITRACIN 15 GM TUBE TOPICAL OINTMENT TP SCH ×2 (10:05→21:56)
[2019-02-19] MEDS: DIVALPROEX SODIUM 250 MG TABLET E.C. PO SCH ×2 (10:05→21:31)
[2019-02-19] MEDS: QUEtiapine FUMARATE 200 MG TABLET PO SCH ×2 (10:05→21:31)
[2019-02-19] MEDS: CEPHALEXIN MONOHYDRATE 500 MG CAPSULE (UD) PO SCH (10:05)
[2019-02-19] MEDS: risperiDONE 1 MG TABLET (FP) PO SCH (10:05)
[2019-02-19] MEDS: THIAMINE HCL 100 MG TABLET (FP) PO SCH (21:31)
[2019-02-19] MEDS: MELATONIN 5 MG TABLETS PO PRN (21:31)
[2019-02-19] MEDS ORDERED: PT OWN MED DRAWER 7, Y5N ONE (22:08)
[2019-02-20] MEDS ORDERED: METHADONE HCL 10 MG TABLET ONE (03:15)
[2019-02-20] MEDS ORDERED: METHADONE HCL 40 MG DISPERSABLE TABLET ONE (03:15)
[2019-02-20] MEDS: METHADONE 40 MG, METHADONE 10 MG PO SCH (06:46)
[2019-02-20] MEDS: DIVALPROEX SODIUM 250 MG TABLET E.C. PO SCH ×2 (09:58→21:31)
[2019-02-20] MEDS: BACITRACIN 15 GM TUBE TOPICAL OINTMENT TP SCH ×2 (09:58→21:33)
[2019-02-20] MEDS: PRENATAL VITAMINS W/ FOLIC ACID TABLET (FP) PO SCH (09:59)
[2019-02-20] MEDS: risperiDONE 1 MG TABLET (FP) PO SCH (09:59)
[2019-02-20] MEDS: QUEtiapine FUMARATE 200 MG TABLET PO SCH ×2 (09:59→21:31)
[2019-02-20] MEDS ORDERED: PT OWN MED DRAWER 7, Y5N ONE (20:26)
[2019-02-20] MEDS: IBUPROFEN 400 MG TABLET (FP) PO PRN (21:31)
[2019-02-20] MEDS: THIAMINE HCL 100 MG TABLET (FP) PO SCH (21:31)
[2019-02-20] MEDS: MELATONIN 5 MG TABLETS PO PRN (21:32)
[2019-02-21] MEDS ORDERED: METHADONE HCL 10 MG TABLET ONE (05:52)
[2019-02-21] MEDS ORDERED: METHADONE HCL 40 MG DISPERSABLE TABLET ONE (05:52)
[2019-02-21] MEDS: METHADONE 40 MG, METHADONE 10 MG PO SCH (06:21)
[2019-02-21] MEDS: hydrOXYzine PAMOATE 50 MG CAPSULE (FP) PO PRN ×2 (08:32→21:23)
[2019-02-21] MEDS: BACITRACIN 15 GM TUBE TOPICAL OINTMENT TP SCH ×2 (09:48→21:22)
[2019-02-21] MEDS: QUEtiapine FUMARATE 200 MG TABLET PO SCH ×2 (09:48→21:23)
[2019-02-21] MEDS: PRENATAL VITAMINS W/ FOLIC ACID TABLET (FP) PO SCH (09:49)
[2019-02-21] MEDS: risperiDONE 1 MG TABLET (FP) PO SCH (09:49)
[2019-02-21] MEDS: DIVALPROEX SODIUM 250 MG TABLET E.C. PO SCH ×2 (09:49→21:22)
[2019-02-21] MEDS ORDERED: MELATONIN 5 MG TABLETS PO PRN (13:02)
--- NOTE | 2019-02-21 13:02 | PN ---
[facility] Progress Note (SOAP) Subjective: Patient reports that her forearm still hurts. See previous note. On Keflex and bacitracin daily dressings. also c/o insomnia Objective: P/E General: no apparent distress, found resting comfortably in bed Skin: Right forearm reddened, but less than previous assessment and no longer raised, although it approxamately the same size with central punctum that is scaly. neuro: CN 2-12 intact 02/21/19 12:57 Assessment: abscess, right forearm 02/21/19 12:59 02/21/19 13:00 Vital Signs Period Temp Pulse Resp BP Sys/Archuleta Pulse Ox Last 24 Hr 97.0 F 73 17-17 90/59 Plan: Continue dressings and Keflex Advised to take tylenol or motrin for pain Will increase melatonin for sleep and psychiatric consult
[2019-02-21] MEDS: CEPHALEXIN MONOHYDRATE 500 MG CAPSULE (UD) PO SCH ×2 (17:32→23:15)
[2019-02-21] MEDS: THIAMINE HCL 100 MG TABLET (FP) PO SCH (21:22)
[2019-02-21] MEDS: IBUPROFEN 400 MG TABLET (FP) PO PRN (21:23)
[2019-02-22] MEDS ORDERED: METHADONE HCL 10 MG TABLET ONE (03:42)
[2019-02-22] MEDS ORDERED: METHADONE HCL 40 MG DISPERSABLE TABLET ONE (03:43)
[2019-02-22] MEDS: METHADONE 40 MG, METHADONE 10 MG PO SCH (06:33)
[2019-02-22] MEDS: CEPHALEXIN MONOHYDRATE 500 MG CAPSULE (UD) PO SCH ×4 (06:34→23:33)
[2019-02-22] MEDS ORDERED: PT OWN MED DRAWER 7, Y5N ONE (08:43)
[2019-02-22] MEDS: QUEtiapine FUMARATE 200 MG TABLET PO SCH ×2 (09:52→21:25)
[2019-02-22] MEDS: DIVALPROEX SODIUM 250 MG TABLET E.C. PO SCH ×2 (09:52→21:25)
[2019-02-22] MEDS: PRENATAL VITAMINS W/ FOLIC ACID TABLET (FP) PO SCH (09:52)
[2019-02-22] MEDS: risperiDONE 1 MG TABLET (FP) PO SCH (09:52)
[2019-02-22] MEDS: BACITRACIN 15 GM TUBE TOPICAL OINTMENT TP SCH ×2 (09:53→22:58)
[2019-02-22] MEDS: IBUPROFEN 400 MG TABLET (FP) PO PRN ×2 (13:59→21:27)
[2019-02-22] MEDS: THIAMINE HCL 100 MG TABLET (FP) PO SCH (21:25)
[2019-02-23] MEDS ORDERED: METHADONE HCL 40 MG DISPERSABLE TABLET ONE (02:52)
[2019-02-23] MEDS ORDERED: METHADONE HCL 10 MG TABLET ONE (02:52)
[2019-02-23] MEDS: METHADONE 40 MG, METHADONE 10 MG PO SCH (06:43)
[2019-02-23] MEDS: CEPHALEXIN MONOHYDRATE 500 MG CAPSULE (UD) PO SCH ×4 (06:44→23:04)
[2019-02-23] MEDS ORDERED: PT OWN MED DRAWER 7, Y5N ONE ×2 (08:35→20:12)
[2019-02-23] MEDS: risperiDONE 1 MG TABLET (FP) PO SCH (09:02)
[2019-02-23] MEDS: PRENATAL VITAMINS W/ FOLIC ACID TABLET (FP) PO SCH (09:02)
[2019-02-23] MEDS: QUEtiapine FUMARATE 200 MG TABLET PO SCH ×2 (09:02→21:41)
[2019-02-23] MEDS: hydrOXYzine PAMOATE 50 MG CAPSULE (FP) PO PRN ×2 (09:02→19:54)
[2019-02-23] MEDS: DIVALPROEX SODIUM 250 MG TABLET E.C. PO SCH ×2 (09:02→21:41)
[2019-02-23] MEDS: BACITRACIN 15 GM TUBE TOPICAL OINTMENT TP SCH ×2 (09:04→21:40)
--- NOTE | 2019-02-23 16:13 | PN ---
Psychiatric Progress Note Vital Signs: Vital Signs Period Temp Pulse Resp BP Sys/Archuleta Pulse Ox Last 24 Hr 97.7 F-97.8 F 66-83 16-16 102-111/64-73 Date of Session: 02/23/19 Chief Complaint:: [facility] HPI: Patient admitted to alcohol, opioid, cocaine and benzodiazepine. Consultation ordered due to patient complaining of difficulty sleeping. ROS: Patient is alert + oriented X3. Current Medications: Active Medications Generic Name Dose Route Start Last Admin Trade Name Freq PRN Reason Stop Dose Admin Acetaminophen 650 mg 02/11/19 18:42 02/15/19 02:10 Tylenol - PO 650 mg Q4H PRN Administration FEVER Al Hydroxide/Mg Hydroxide 30 ml 02/11/19 18:42 Mylanta Oral Suspension - PO Q6H PRN DYSPEPSIA Albuterol Sulfate 2 puff 02/11/19 20:53 Ventolin Hfa Inhaler - IH Q4H PRN ASTHMA Bacitracin 1 applic 02/12/19 22:00 02/23/19 09:04 Bacitracin - TP 1 applic BID ADOLFO Administration Cephalexin HCl 500 mg 02/21/19 18:00 02/23/19 12:19 Keflex - PO 02/29/20 23:59 500 mg Q6HPO ADOLFO Administration Divalproex Sodium 250 mg 02/12/19 10:45 02/23/19 09:02 Depakote - PO 250 mg BID ADOLFO Administration Eucalyptus/Menthol/Phenol/Sorbitol 1 each 02/11/19 18:42 Cepastat Lozenge - MM Q4H PRN SORE THROAT Guaifenesin 10 ml 02/11/19 18:42 Robitussin - PO Q6H PRN COUGH Hydroxyzine Pamoate 50 mg 02/14/19 11:40 02/23/19 09:02 Vistaril - PO 50 mg Q4H PRN Administration ANXIETY Ibuprofen 400 mg 02/11/19 18:42 02/22/19 21:27 Motrin - PO 400 mg Q6H PRN Administration Pain level 4-6 Loperamide HCl 4 mg 02/11/19 18:42 Imodium - PO Q6H PRN DIARRHEA Magnesium Citrate 300 ml 02/11/19 18:42 Citroma - PO Q48H PRN CONSTIPATION Magnesium Hydroxide 30 ml 02/11/19 18:42 Milk Of Magnesia - PO DAILY PRN CONSTIPATION Melatonin 10 mg 02/21/19 13:02 02/22/19 21:26 Melatonin PO 10 mg HS PRN Administration INSOMNIA Methadone HCl 40 mg/ Methadone 50 mg 02/24/19 06:00 HCl 10 mg PO DAILY@0600 ADOLFO Nicotine Polacrilex 2 mg 02/11/19 18:42 Nicorette Gum - BC Q2H PRN NICOTINE REPLACEMENT RX Multivit/Folic Acid/Iron 1 tab 02/12/19 10:00 02/23/19 09:02 Vitamins (Sjr) - PO 1 tab DAILY ADOLFO Administration Pseudoephedrine/Triprolidine 1 combo 02/11/19 18:42 Actifed - PO TID PRN NASAL CONGESTION Quetiapine Fumarate 200 mg 02/12/19 10:45 02/23/19 09:02 Seroquel - PO 200 mg BID ADOLFO Administration Risperidone 1 mg 02/12/19 10:45 02/23/19 09:02 Risperdal - PO 1 mg DAILY ADOLFO Administration Thiamine HCl 100 mg 02/11/19 22:00 02/22/19 21:25 Vitamin B1 - PO 100 mg HS ADOLFO Administration Medication(s) Change(s): Yes. Will d/c belsomra 15mg and will order Belsomra 15mg HS. Current Side Effect: No Lab tests ordered: No Lab tests reviewed: Yes Provider note:: Patient reports difficulty sleeping. Medication options for insomnia reviewed. Will order Belsomra 10mg HS. Patient educated on the importance of proper sleep hygiene. Benefits and side effects discussed. Verbal consent given. Total face to face time:: 25 Mental Status Exam - Mental Status Exam Alert and Oriented to: Time, Place, Person Cognitive Function: Good Patient Appearance: Well Groomed Mood: Euthymic Affect: Mood Congruent Patient Behavior: Cooperative Speech Pattern: Appropriate Voice Loudness: Normal Thought Process: Goal Oriented Thought Disorder: Not Present Hallucinations: Denies Suicidal Ideation: Denies Homicidal Ideation: Denies Insight/Judgement: Poor Sleep: Poorly Appetite: Fair Muscle strength/Tone: Normal Gait/Station: Normal Psychiatric Treatment Plan - Problem List (1) Alcohol dependence Current Visit: Yes (2) Sedative hypnotic or anxiolytic dependence Current Visit: Yes (3) Substance-induced sleep disorder Current Visit: Yes (4) Opioid dependence on agonist therapy Current Visit: Yes (5) PTSD (post-traumatic stress disorder) Current Visit: Yes (6) Schizophrenia Current Visit: Yes
[2019-02-23] MEDS: IBUPROFEN 400 MG TABLET (FP) PO PRN (19:53)
[2019-02-23] MEDS: THIAMINE HCL 100 MG TABLET (FP) PO SCH (21:41)
[2019-02-23] MEDS: SUVOREXANT 10 MG TABLET PO PRN (21:42)
[2019-02-24] MEDS ORDERED: METHADONE HCL 10 MG TABLET ONE (05:59)
[2019-02-24] MEDS ORDERED: METHADONE HCL 40 MG DISPERSABLE TABLET ONE (05:59)
[2019-02-24] MEDS: METHADONE 40 MG, METHADONE 10 MG PO SCH (06:25)
[2019-02-24] MEDS: CEPHALEXIN MONOHYDRATE 500 MG CAPSULE (UD) PO SCH ×4 (06:25→23:19)
[2019-02-24 07:14] VITALS: TEMP 97.4
[2019-02-24] MEDS: BACITRACIN 15 GM TUBE TOPICAL OINTMENT TP SCH ×2 (10:08→21:10)
[2019-02-24] MEDS: QUEtiapine FUMARATE 200 MG TABLET PO SCH ×2 (10:08→21:09)
[2019-02-24] MEDS: PRENATAL VITAMINS W/ FOLIC ACID TABLET (FP) PO SCH (10:09)
[2019-02-24] MEDS: DIVALPROEX SODIUM 250 MG TABLET E.C. PO SCH ×2 (10:09→21:09)
[2019-02-24] MEDS: risperiDONE 1 MG TABLET (FP) PO SCH (10:09)
--- NOTE | 2019-02-24 11:04 | PN ---
[facility] Progress Note Note: Patient is scheduled for discharge tomorrow. Scripts for 30 days supply of medications(Depakote 250 mg/bid, Seroquel 200 mg/bid, Risperdal 1 mg/hs) will be electronically transmitted to [facility] at [address] [place] [id number]
[2019-02-24] MEDS: THIAMINE HCL 100 MG TABLET (FP) PO SCH (21:09)
[2019-02-24] MEDS: SUVOREXANT 10 MG TABLET PO PRN (21:11)
[2019-02-25] MEDS ORDERED: METHADONE HCL 10 MG TABLET ONE (06:42)
[2019-02-25] MEDS ORDERED: METHADONE HCL 40 MG DISPERSABLE TABLET ONE (06:42)
[2019-02-25] MEDS: METHADONE 40 MG, METHADONE 10 MG PO SCH (06:42)
[2019-02-25] MEDS: CEPHALEXIN MONOHYDRATE 500 MG CAPSULE (UD) PO SCH ×3 (06:42→17:34)
[2019-02-25 07:21] VITALS: BP 97/64; PULSE 78
[2019-02-25] MEDS ORDERED: PT OWN MED DRAWER 7, Y5N ONE (08:26)
--- NOTE | 2019-02-25 08:36 | DS ---
[facility] Rehab Discharge Summary - [facility] Rehab Discharge Summary Admission Date: 02/11/19 Discharge Date: 02/25/19 - History Present History: Alcohol dependence, Cocaine dependence, Opioid dependence Additional Comments: Pt is a 43 y/o female with a hx of OFELIA admitted to rehab and discharged today. Pt has been referred to [facility] treatment services for CD aftercare and reports primary care site at [facility] with Dr. Greer. Pertinent Past History: Asthma Perforated nasal Abscess right Forearm Schizophrenia - Discharge Physical Exam Vital Signs: Vital Signs Temperature 97.4 F L 02/25/19 07:19 Pulse Rate 78 02/25/19 07:19 Respiratory Rate 18 02/25/19 07:19 Blood Pressure 97/64 02/25/19 07:19 O2 Sat by Pulse Oximetry (%) Alert o x 3 nad oob ambulating with steady gait cardiac:s1 s2,rrr lungs:cta,hermelindo. abdomen:soft,+bs,nt,nd extremities/skin:no edema,full ROM;resolving abscess right forearm Pertinent Admission Physical Exam Findings: Laboratory Tests 02/11/19 02/12/19 02/12/19 18:03 08:37 08:37 WBC 3.2 L RBC 3.93 Hgb 11.8 Hct 34.7 MCV 88.5 MCH 30.0 MCHC 33.9 RDW 12.5 D Plt Count 363 D MPV 7.4 L Sodium 142 Potassium 3.7 Chloride 107 Carbon Dioxide 28 Anion Gap 7 L BUN 6.2 L Creatinine 0.9 Est GFR (CKD-EPI)AfAm 92.05 Est GFR (CKD-EPI)NonAf 79.42 Random Glucose 125 H Calcium 9.0 Total Bilirubin 0.3 AST 21 ALT 24 Alkaline Phosphatase 70 Total Protein 6.8 Albumin 3.4 Urine Color Urine Appearance Urine pH Ur Specific [place] Urine Protein Urine Glucose (UA) Urine Ketones Urine Blood Urine Nitrite Urine Bilirubin Urine Urobilinogen Ur Leukocyte Esterase Urine WBC (Auto) Urine RBC (Auto) Urine Casts (Auto) U Epithel Cells (Auto) Urine Bacteria (Auto) POC Urine HCG, Qual Negative RPR Titer 02/12/19 02/15/19 08:37 22:00 WBC RBC Hgb Hct MCV MCH MCHC RDW Plt Count MPV Sodium Potassium Chloride Carbon Dioxide Anion Gap BUN Creatinine Est GFR (CKD-EPI)AfAm Est GFR (CKD-EPI)NonAf Random Glucose Calcium Total Bilirubin AST ALT Alkaline Phosphatase Total Protein Albumin Urine Color Yellow Urine Appearance Cloudy Urine pH 6.5 Ur Specific [place] 1.021 Urine Protein Negative Urine Glucose (UA) Negative Urine Ketones Negative Urine Blood Negative Urine Nitrite Negative Urine Bilirubin Negative Urine Urobilinogen 0.2 Ur Leukocyte Esterase 1+ H Urine WBC (Auto) 27 Urine RBC (Auto) 1 Urine Casts (Auto) 9 U Epithel Cells (Auto) 14.1 Urine Bacteria (Auto) 999.1 POC Urine HCG, Qual RPR Titer Nonreactive Pt to follow up with primary care with copy of lab result for medical management /repeat labs. Abscess of right forearm(On Treatment with Keflex) - Treatment Discharge Condition: Discharge condition good Hospital Course: rehabilitated safely CD aftercare referral accepted - Medication Discharge Medications: Ambulatory Orders Albuterol Sulfate Inhaler - [Ventolin HFA Inhaler -] 2 puff IH Q4H PRN #1 inhaler 06/23/17 Quetiapine Fumarate [Seroquel -] 200 mg PO BID 11/09/17 Buspirone HCl [Buspar -] 10 mg PO DAILY 02/11/19 Diphenhydramine [Benadryl -] 50 mg PO HS 02/11/19 Divalproex [Depakote -] 250 mg PO BID 02/11/19 Risperidone [Risperdal] 1 mg PO HS 02/11/19 Divalproex [Depakote -] 250 mg PO BID #60 tablet.ec 02/24/19 Quetiapine Fumarate [Seroquel -] 200 mg PO BID #60 tablet 02/24/19 Risperidone [Risperdal -] 1 mg PO DAILY #30 tablet 02/24/19 Cephalexin Monohydrate [Keflex -] 500 mg PO Q6HPO #24 capsule 02/25/19 - Medication-Assisted Treatment (MAT) Medication-Assisted Treatment (MAT): No - Discharge Instructions Diet, activity, other medical instructions: Diet:Regular Activity: oob ad eveline Other medical instructions:Follow up with Cd aftercare @ [facility] as recommended and scheduled. follow up with primary care with [place], [place] within 1 week after discharge. Finish all the course of Keflex antibiotics as prescribed. - Diagnosis (1) Alcohol dependence Status: Chronic Qualifiers: Substance use status: uncomplicated Qualified Code(s): F10.20 - Alcohol dependence, uncomplicated (2) Asthma Status: Chronic Qualifiers: Asthma severity: mild Asthma persistence: unspecified Asthma complication type: unspecified Qualified Code(s): J45.909 - Unspecified asthma , uncomplicated (3) Cocaine dependence Status: Chronic Qualifiers: Substance use status: uncomplicated Qualified Code(s): F14.20 - Cocaine dependence, uncomplicated (4) Cocaine use disorder Status: Chronic (5) Nicotine dependence Status: Chronic Qualifiers: Nicotine product type: cigarettes Substance use status: uncomplicated Qualified Code(s): F17.210 - Nicotine dependence, cigarettes, uncomplicated (6) Opioid dependence on agonist therapy Status: Chronic (7) Perforated nasal septum Status: Chronic - Follow-up Referral Minutes to complete discharge: 20 - AMA Did Patient Leave Against Medical Advice: No Additional Comments: Keflex Rx sent to pt's [facility] to [facility] and complete treatment of antibiotics.
[2019-02-25] MEDS: BACITRACIN 15 GM TUBE TOPICAL OINTMENT TP SCH (10:03)
[2019-02-25] MEDS: risperiDONE 1 MG TABLET (FP) PO SCH (10:03)
[2019-02-25] MEDS: QUEtiapine FUMARATE 200 MG TABLET PO SCH (10:03)
[2019-02-25] MEDS: PRENATAL VITAMINS W/ FOLIC ACID TABLET (FP) PO SCH (10:03)
[2019-02-25] MEDS: DIVALPROEX SODIUM 250 MG TABLET E.C. PO SCH (10:03)
== END 2019-02-25 18:53 | disposition home or self-care (01) | DRG 772 ==
LOC: YASAS 14:09 → Y3E 19:33
PROVIDERS: ADMIT Neuromusculoskeletal Medicine & OMM; ATTEND Neuromusculoskeletal Medicine & OMM
PROC: HZ42ZZZ Group Counseling for Substance Abuse Treatment, Cognitive-Behavioral (ICD-10-PCS; principal; 2019-02-11)
DX: F11.20 Opioid dependence, uncomplicated (principal); F10.20 Alcohol dependence, uncomplicated; F13.20 Sedative, hypnotic or anxiolytic dependence, uncomplicated; F14.20 Cocaine dependence, uncomplicated; F17.210 Nicotine dependence, cigarettes, uncomplicated; F20.9 Schizophrenia, unspecified; F19.282 Other psychoactive substance dependence with psychoactive substance-induced sleep disorder; F31.9 Bipolar disorder, unspecified; J34.89 Other specified disorders of nose and nasal sinuses; J45.909 Unspecified asthma, uncomplicated; L02.413 Cutaneous abscess of right upper limb; Z59.0 Homelessness; Z88.8 Allergy status to other drugs, medicaments and biological substances; Z91.013 Allergy to seafood
CPT/HCPCS: 36415; 80053; 81003; 81025; 85027; 86593; J2794

== ENCOUNTER 2023-12-04 16:06 | Inpatient (IN) | payer OTHER ==
[2023-12-04 17:26] VITALS: BMI 27.3
[2023-12-04] MEDS ORDERED: METHOCARBAMOL 500 MG TABLET PO PRN (18:53)
[2023-12-04] MEDS ORDERED: POLYETHYLENE GLYCOL (HEALTHYLAX) 3350 17 GM PACKET PO PRN (18:53)
[2023-12-04] MEDS ORDERED: NICOTINE POLACRILEX 2 MG GUM BUC PRN (18:53)
[2023-12-04] MEDS ORDERED: MAGNESIUM HYDROX 2400MG/30ML ORAL SUSPENSION 30 ML CUP PO PRN (18:53)
[2023-12-04] MEDS ORDERED: MAG HYDROX/AL HYDROX/SIMETH 30 ML UNIT-DOSE CUP PO PRN (18:53)
[2023-12-04] MEDS ORDERED: guaiFENesin 600 MG TABLET.ER (FP) PO PRN (18:53)
[2023-12-04] MEDS ORDERED: BISMUTH SUBSALICYLATE 524 MG/30 ML PO PRN (18:53)
[2023-12-04] MEDS ORDERED: LOPERAMIDE HCL 2 MG CAPSULE PO PRN (18:53)
[2023-12-04] MEDS ORDERED: ACETAMINOPHEN 325 MG TABLET (FP) PO PRN (18:53)
[2023-12-04] MEDS ORDERED: IBUPROFEN 400 MG TABLET (FP) PO PRN (18:53)
[2023-12-04] MEDS ORDERED: BENZONATATE 200 MG CAPSULE PO PRN (18:53)
[2023-12-04] MEDS ORDERED: ONDANSETRON *ODT* 4 MG TABLET SL PRN (18:53)
[2023-12-04] MEDS ORDERED: IBUPROFEN 600 MG TABLET (FP) PO PRN (18:53)
[2023-12-04] MEDS ORDERED: DICYCLOMINE HCL 10 MG CAPSULE PO PRN (18:53)
[2023-12-04] MEDS ORDERED: P-EPHED 60MG/TRIPROLIDI 2.5MG TABLET PO PRN (18:53)
[2023-12-04] MEDS ORDERED: NICOTINE POLACRILEX 2 MG LOZENGE BC PRN (18:53)
[2023-12-04] MEDS ORDERED: BENZOCAINE/MENTHOL (CHLORASEPTIC ) LOZENGE MM PRN (18:53)
[2023-12-04 20:50] VITALS: BP 102/69; PULSE 88; RESP 16; TEMP 98.6
[2023-12-04] MEDS: MELATONIN 5 MG TABLETS PO SCH (22:22)
[2023-12-04] MEDS: THIAMINE 100 MG TABLET PO SCH (22:22)
[2023-12-05] MEDS ORDERED: PRENATAL VITAMINS W/ FOLIC ACID TABLET (FP) PO SCH (10:00)
== END 2023-12-05 01:35 | disposition left against medical advice (07) | DRG 770 ==
LOC: YASAS 16:06 → Y3N 19:26
PROVIDERS: ADMIT Allergy & Immunology; ATTEND Surgery
PROC: HZ2ZZZZ Detoxification Services for Substance Abuse Treatment (ICD-10-PCS; principal; 2023-12-04)
DX: F10.20 Alcohol dependence, uncomplicated (principal); F14.20 Cocaine dependence, uncomplicated; F17.210 Nicotine dependence, cigarettes, uncomplicated; F20.9 Schizophrenia, unspecified; Z91.51 Personal history of suicidal behavior; Z88.8 Allergy status to other drugs, medicaments and biological substances
CPT/HCPCS: 80305; 80307; 81025; 93005; 93010